=== PATIENT | male | born 1990 | race Caucasian/White ===

== ENCOUNTER → 2018-03-07 17:51 | Outpatient (CLI) | payer OTHER, SELFPAY ==
--- NOTE | 2018-03-07 | DI.MRI.S_ITS ---
PROCEDURE: MR HEAD/BRAIN WO/W CON INDICATIONS: LOW BACK PAIN/WEAKNESS - possible MS TECHNIQUE: Noncontrast sagittal and axial FLAIR, axial and coronal T2 fast spin echo, axial VIBE, axial gradient echo, axial diffusion and ADC through the brain. After the administration of contrast, axial and coronal VIBE with fat saturation through the brain. COMPARISON: None. FINDINGS: Image quality: Excellent. CSF spaces: Ventricles are normal in size and shape. Basal cisterns are patent. No extra-axial fluid collections. Incidentally noted low-lying cerebellar tonsils Brain: No intracranial bleeds or mass effects. No suspicious white matter signal changes to suggest demyelination Uribe-white matter interface appears intact. No suspicious white matter lesions. No abnormal intracranial enhancement. Diffusion weighted images show no acute ischemic insults. Brainstem appears normal. Normal intravascular flow voids are present. Skull and face: Calvarial marrow signal is normal. Orbits appear normal. Sinuses: Sinuses and mastoids are clear. IMPRESSION: Incidentally noted low-lying cerebellar tonsils. The clinical significance is unknown and recommend correlation to exam findings. No white matter signal changes or enhancement to suggest demyelination seen. Dictated by: Juan Gay M.D. on 03/08/2018 at 9:40 Approved by: Juan Gay M.D. on 03/08/2018 at 9:44
== END ==
PROVIDERS: Visit Provider Student in an Organized Health Care Education/Training Program
DX: M54.5 Low back pain (principal); R53.1 Weakness
CPT/HCPCS: 70553; A9579

== ENCOUNTER 2018-08-12 09:45 | Outpatient (RCR) | payer OTHER, SELFPAY ==
--- NOTE | 2018-06-24 09:17 | PT.OIE ---
Current Diagnoses Other congenital malformations of spine, not associated with scoliosis (06/24/18) Provider Visit Care Team Role Provider Type Maribell Medina Attending Provider Non-Staff Primary Care Provider Specialty: Medical Address: [address] [address] [address], [place], [phone] Fax: Email: Physical Therapy Initial Evaluation PT-OP-A Visit Information Start: 06/24/18 08:15 Freq: Status: Active Protocol: Document 06/24/18 12:25 [facility] (Rec: 06/24/18 12:33 [facility] [id number]) Out-Patient Physical Therapy Visit Information Visit Information Visit Type Initial Evaluation Visit Start Time 08:20 Visit Stop Time 09:05 Total Visit Minutes 45 Visit Number 1/2 Number of VOLTAGE INSPECTOR Visits 0 PT-OP-B Current Condition Start: 06/24/18 08:15 Freq: Status: Active Protocol: Document 06/24/18 12:25 [facility] (Rec: 06/24/18 16:57 [facility] [id number]) Current Condition History of Current Condition Onset Date about 3-5 years ago initial injury Current Complaints LBP with RLE pain History of Current Condition Pt reports he had an injury about 3 to 5 years ago when he was doing a 4 person lift for a 450 lb thing at work and then had to close the large lid and jumped off and noticed he tweaked his back> Reports when he got out the shower he felt like he couldn't walk and couldn't get up from floor. He rested in bed per MD recommendation for 3 days. [place] did PT [place] and came back and did PT but did not have relief with it. MD kept dx as mm spasm each time he went in and would give him mm relaxors . He had anohter injury where he was exercising recently and doing broad jumps and felt very uncomfortable in his back which inc his pain. 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 Pt does yoga and elliptical but is painful. He had an SUKHWINDER which gave him small bit of relief. Prior Treatments and Tests MRI & xrays & 1 injection giving some help Future Testing and Treatments Planned another injection soon Treatment Goals Patient/Caregiver Goals dec pain , return to being active PT-OP-C Subjective Start: 06/24/18 08:15 Freq: Status: Active Protocol: Document 06/24/18 12:25 [facility] (Rec: 06/24/18 16:57 [facility] [id number]) Patient Questionnaires Oswestry Low Back Index Oswestry Score 56 Oswestry Impairment 40 to 59% Impaired (Score 40- 59) OP-PT Pain Assessment Location lumbar Pain Location Details lumbar and into ant med thigh Intensity 6 Scale Used Numeric (1 - 10) Description- Other constant 6; highest 8/10; best 3-4/10 Frequency Constant Radiating Location ant med thigh Other Pain Aggravating Factors standing, sitting extended, sleeping on right, laying flat , shifting weight Other Pain Alleviating Factors laying on L side PT-OP-F Manual Assessment Start: 06/24/18 08:15 Freq: Status: Active Protocol: Document 06/24/18 12:25 [facility] (Rec: 06/24/18 12:33 [facility] [id number]) Manual Assessments Soft Tissue Assessment Soft Tissue Mobility Assessment Tenderness & tightness throughout LB Joint Mobility Assessment Joint Mobility Assessment L iliac crest higher than R PT-OP-G Mobility & Gait Start: 06/24/18 08:15 Freq: Status: Active Protocol: Document 06/24/18 12:25 [facility] (Rec: 06/24/18 12:33 [facility] [id number]) OP Mobility Evaluation Bed Mobility Rolling rolls segmentally, not with core first strategy Supine to and from Sit does sit up and sit back for supine <>sit OP Gait Assessment Comments Gait Comments Lat lean over RLE with dec stance time and dec post depression PT-OP-K Range of Motion Start: 06/24/18 08:15 Freq: Status: Active Protocol: Document 06/24/18 12:25 [facility] (Rec: 06/24/18 12:33 [facility] [id number]) Lumbar Spine Range of Motion Lumbar Spine Active Degrees Testing Position standing Flexion 24 Extension 0 Lateral Flexion Left 10 Lateral Flexion Right 10 Comments 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 PT-OP-L Special Tests Start: 06/24/18 08:15 Freq: Status: Active Protocol: Document 06/24/18 12:25 [facility] (Rec: 06/24/18 12:33 [facility] [id number]) Special Tests Lumbar Spine Special Tests Slump Test Results positive R(unable to go fully into slump d/t back pain)neck flex w/knee ext Straight Leg Raise Test Results neg B-HS tightness PT-OP-M Strength Start: 06/24/18 08:15 Freq: Status: Active Protocol: Document 06/24/18 12:25 [facility] (Rec: 06/24/18 12:33 [facility] [id number]) Hip Strength Hip Manual Muscle Testing Right Flexion (L2) 4 Good Comments pain B- extensive testing not done d/t pain. Left Flexion (L2) 4 Good Comments pain w/hip flex PT-OP-Q Treatments Start: 06/24/18 08:15 Freq: Status: Active Protocol: Document 06/24/18 12:25 [facility] (Rec: 06/24/18 12:58 [facility] [id number]) Therapeutic Exercises Sidelying Exercises TA contraction Side left Reps/Minutes 5 sec x5 Comments palpating for TA vs rectus Therapeutic Activity Therapeutic Activity ice Comments edu on inflammation especially with inc activity; trying after elliptical log roll technique Comments Pt able to log roll with cueing and edu PT-OP-T Assessment and Plan Start: 06/24/18 08:15 Freq: Status: Active Protocol: Document 06/24/18 12:25 [facility] (Rec: 06/24/18 12:58 [facility] [id number]) Physical Therapy Assessment Rehab Potential Rehabilitation Potential Good Evaluation Complexity Number of Personal Factors/Comorbidities 1-2 Number of Body Systems Impaired 4 or More Clinical Presentation at Evaluation Evolving Impairments Impairments Activity Tolerance Balance Functional Activities Functional Mobility Gait Pain Posture ROM Soft Tissue Mobility Strength Assessment Summary Assessment Pt presents with hx of annular tear and recent diagnosis of Bertolotti's syndrome and pt reports only having 4 lumbar vertebrae per MD. Pt has severe back pain and is unable to participate in his typical activities due to pain with resulting gait impairments and strength and ROM limitations. Physical Therapy Plan Frequency and Duration Frequency of Treatment 2x/Week Duration of Treatment 2 months Plan of Care Start Date 06/24/18 Plan of Care End Date 08/24/18 Therapeutic Interventions Therapeutic Interventions Aquatic Therapy Balance Training Gait Training Home Exercise Program Joint Mobilizations Manual Therapy Self-Care/Home Management Soft Tissue Mobilization Taping Therapeutic Activities Therapeutic Exercises Modalities Cold Pack/Ice Massage Electric Stimulation Hot Packs Infrared Therapy Traction- Mechanical Ultrasound Next Visit Focus/Plan Next Note Type Treatment Note Next Visit Plan Try taping, STM, LTR, Try finding position of comfort, discuss aquatic
--- NOTE | 2018-06-24 09:18 | PT.OPPOC ---
Current Diagnoses Other congenital malformations of spine, not associated with scoliosis (06/24/18) Provider Visit Care Team Role Provider Type Maribell Medina Attending Provider Non-Staff Primary Care Provider Specialty: Medical Address: [address] [place] [address] [address], [place], [phone] Fax: Email: Plan Of Care PT-OP-T Assessment and Plan Start: 06/24/18 08:15 Freq: Status: Active Protocol: Document 06/24/18 12:25 [facility] (Rec: 06/24/18 12:58 [facility] [id number]) Physical Therapy Assessment Rehab Potential Rehabilitation Potential Good Evaluation Complexity Number of Personal Factors/Comorbidities 1-2 Number of Body Systems Impaired 4 or More Clinical Presentation at Evaluation Evolving Impairments Impairments Activity Tolerance Balance Functional Activities Functional Mobility Gait Pain Posture ROM Soft Tissue Mobility Strength Assessment Summary Assessment Pt presents with hx of annular tear and recent diagnosis of Bertolotti's syndrome and pt reports only having 4 lumbar vertebrae per MD. Pt has severe back pain and is unable to participate in his typical activities due to pain with resulting gait impairments and strength and ROM limitations. Physical Therapy Plan Frequency and Duration Frequency of Treatment 2x/Week Duration of Treatment 2 months Plan of Care Start Date 06/24/18 Plan of Care End Date 08/24/18 Therapeutic Interventions Therapeutic Interventions Aquatic Therapy Balance Training Gait Training Home Exercise Program Joint Mobilizations Manual Therapy Self-Care/Home Management Soft Tissue Mobilization Taping Therapeutic Activities Therapeutic Exercises Modalities Cold Pack/Ice Massage Electric Stimulation Hot Packs Infrared Therapy Traction- Mechanical Ultrasound Next Visit Focus/Plan Next Note Type Treatment Note Next Visit Plan Try taping, STM, LTR, Try finding position of comfort, discuss aquatic Plan of Care Dates Plan of Care Start Date 06/24/18 Plan of Care End Date 08/24/18 Please Sign and Return: I have reviewed this Plan of Care and certify that the skilled therapy services above are required to meet the patient?s needs. Physician Signature Date Printed Name and Credentials Clinical Instructor Signature Printed Name and Credentials
--- NOTE | 2018-06-24 14:26 | PT.OPPOC ---
Current Diagnoses Other congenital malformations of spine, not associated with scoliosis (06/27/18) Provider Visit Care Team Role Provider Type Maribell Medina Attending Provider Non-Staff Primary Care Provider Specialty: Medical Address: [address] [place] [address] [address], [place], [phone] Fax: Email: Plan Of Care PT-OP-T Assessment and Plan Start: 06/24/18 08:15 Freq: Status: Active Protocol: Document 06/24/18 12:25 [facility] (Rec: 06/24/18 12:58 [facility] [id number]) Physical Therapy Assessment Rehab Potential Rehabilitation Potential Good Evaluation Complexity Number of Personal Factors/Comorbidities 1-2 Number of Body Systems Impaired 4 or More Clinical Presentation at Evaluation Evolving Impairments Impairments Activity Tolerance Balance Functional Activities Functional Mobility Gait Pain Posture ROM Soft Tissue Mobility Strength Goals Two Impairment mobility Short Term Goal (STG) Pt will be able to sit and stand for 15 min without inc pain STG Duration 07/25/18 Penitentiary Goal (LTG) Pt will be able to return to work with min inc pain LTG Duration 08/24/18 One Impairment pain Short Term Goal (STG) daily pain to 2/10 STG Duration 07/25/18 Penitentiary Goal (LTG) Worst pain to 5/10 LTG Duration 08/24/18 Assessment Summary Assessment Pt presents with hx of annular tear and recent diagnosis of Bertolotti's syndrome and pt reports only having 4 lumbar vertebrae per MD. Pt has severe back pain and is unable to participate in his typical activities due to pain with resulting gait impairments and strength and ROM limitations. Physical Therapy Plan Frequency and Duration Frequency of Treatment 2x/Week Duration of Treatment 2 months Plan of Care Start Date 06/24/18 Plan of Care End Date 08/24/18 Therapeutic Interventions Therapeutic Interventions Aquatic Therapy Balance Training Gait Training Home Exercise Program Joint Mobilizations Manual Therapy Self-Care/Home Management Soft Tissue Mobilization Taping Therapeutic Activities Therapeutic Exercises Modalities Cold Pack/Ice Massage Electric Stimulation Hot Packs Infrared Therapy Traction- Mechanical Ultrasound Next Visit Focus/Plan Next Note Type Treatment Note Next Visit Plan Try taping, STM, LTR, Try finding position of comfort, discuss aquatic Plan of Care Dates Plan of Care Start Date 06/24/18 Plan of Care End Date 08/24/18 Please Sign and Return: I have reviewed this Plan of Care and certify that the skilled therapy services above are required to meet the patient?s needs. Physician Signature Date Printed Name and Credentials Clinical Instructor Signature Printed Name and Credentials
--- NOTE | 2018-06-27 18:17 | PT.OTN ---
Current Diagnoses Other congenital malformations of spine, not associated with scoliosis (06/27/18) Physical Therapy Treatment Note PT-OP-A Visit Information Start: 06/24/18 08:15 Freq: Status: Active Protocol: Document 06/27/18 14:12 [facility] (Rec: 06/27/18 14:19 [facility] [id number]) Out-Patient Physical Therapy Visit Information Visit Information Visit Type Treatment Note Visit Start Time 11:15 Visit Stop Time 12:15 Total Visit Minutes 60 Visit Number 10/18 Number of VAN DRIVER Visits 0 PT-OP-B Current Condition Start: 06/24/18 08:15 Freq: Status: Active Protocol: Document 06/24/18 12:25 [facility] (Rec: 06/24/18 16:57 [facility] [id number]) Current Condition History of Current Condition Onset Date about 3-5 years ago initial injury Current Complaints LBP with RLE pain History of Current Condition Pt reports he had an injury about 3 to 5 years ago when he was doing a 4 person lift for a 450 lb thing at work and then had to close the large lid and jumped off and noticed he tweaked his back> Reports when he got out the shower he felt like he couldn't walk and couldn't get up from floor. He rested in bed per MD recommendation for 3 days. [place] did PT [place] and came back and did PT but did not have relief with it. MD kept dx as mm spasm each time he went in and would give him mm relaxors . He had anohter injury where he was exercising recently and doing broad jumps and felt very uncomfortable in his back which inc his pain. 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 Pt does yoga and elliptical but is painful. He had an SUKHWINDER which gave him small bit of relief. Prior Treatments and Tests MRI & xrays & 1 injection giving some help Future Testing and Treatments Planned another injection soon Treatment Goals Patient/Caregiver Goals dec pain , return to being active PT-OP-C Subjective Start: 06/24/18 08:15 Freq: Status: Active Protocol: Document 06/27/18 14:12 [facility] (Rec: 06/27/18 14:19 [facility] [id number]) OP-PT Subjective Patient Comments Patient Comments Pt reports he did try the exercise. NOtes significant pain today d/t CT imaging being done later today. PT-OP-F Manual Assessment Start: 06/24/18 08:15 Freq: Status: Active Protocol: Document 06/24/18 12:25 [facility] (Rec: 06/24/18 12:33 [facility] [id number]) Manual Assessments Soft Tissue Assessment Soft Tissue Mobility Assessment Tenderness & tightness throughout LB Joint Mobility Assessment Joint Mobility Assessment L iliac crest higher than R PT-OP-G Mobility & Gait Start: 06/24/18 08:15 Freq: Status: Active Protocol: Document 06/24/18 12:25 [facility] (Rec: 06/24/18 12:33 [facility] [id number]) OP Mobility Evaluation Bed Mobility Rolling rolls segmentally, not with core first strategy Supine to and from Sit does sit up and sit back for supine <>sit OP Gait Assessment Comments Gait Comments Lat lean over RLE with dec stance time and dec post depression PT-OP-K Range of Motion Start: 06/24/18 08:15 Freq: Status: Active Protocol: Document 06/24/18 12:25 [facility] (Rec: 06/24/18 12:33 [facility] [id number]) Lumbar Spine Range of Motion Lumbar Spine Active Degrees Testing Position standing Flexion 24 Extension 0 Lateral Flexion Left 10 Lateral Flexion Right 10 Comments 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 PT-OP-L Special Tests Start: 06/24/18 08:15 Freq: Status: Active Protocol: Document 06/24/18 12:25 [facility] (Rec: 06/24/18 12:33 [facility] [id number]) Special Tests Lumbar Spine Special Tests Slump Test Results positive R(unable to go fully into slump d/t back pain)neck flex w/knee ext Straight Leg Raise Test Results neg B-HS tightness PT-OP-M Strength Start: 06/24/18 08:15 Freq: Status: Active Protocol: Document 06/24/18 12:25 [facility] (Rec: 06/24/18 12:33 [facility] [id number]) Hip Strength Hip Manual Muscle Testing Right Flexion (L2) 4 Good Comments pain B- extensive testing not done d/t pain. Left Flexion (L2) 4 Good Comments pain w/hip flex PT-OP-Q Treatments Start: 06/24/18 08:15 Freq: Status: Active Protocol: Document 06/27/18 14:12 [facility] (Rec: 06/27/18 14:19 [facility] [id number]) Therapeutic Exercises Supine Exercises SKTC Supine Exercise Name SKTC in hooklying Comments AA Sidelying Exercises diaphragmatic breathing Sidelying Exercise Name breathing w/hand on abdomen TA contraction Side left Reps/Minutes 5 sec x5 Comments palpating for TA vs rectus Other Exercises cat/camel Other Exercise Name cat/camel quaduped SB Other Exercise Name tail wags Reps/Minutes 8 Manual Therapy Treatment Soft Tissue Mobilization QL Body Location QL & paraspinals diaphram Body Location Diaphram Mobilization Type Sustained Pressure Comments L>R PT-OP-T Assessment and Plan Start: 06/24/18 08:15 Freq: Status: Active Protocol: Document 06/27/18 14:12 [facility] (Rec: 06/27/18 18:17 [facility] [id number]) Physical Therapy Assessment Goals Two Impairment mobility Short Term Goal (STG) Pt will be able to sit and stand for 15 min without inc pain STG Duration 07/25/18 Assembler Brazer Goal (LTG) Pt will be able to return to work with min inc pain LTG Duration 08/24/18 One Impairment pain Short Term Goal (STG) daily pain to 2/10 STG Duration 07/25/18 Assembler Brazer Goal (LTG) Worst pain to 5/10 LTG Duration 08/24/18 Assessment Summary Assessment Pt unable to tolerate manual traction in supine bent knee position or s/l with small force. Pt had pain in LB with deep breathing and pain into back with STM into diaphram with significant restriciton and tendency to utilize accessory mm for breathing. Physical Therapy Plan Frequency and Duration Frequency of Treatment 2x/Week Duration of Treatment 2 months Plan of Care Start Date 06/24/18 Plan of Care End Date 08/24/18 Next Visit Focus/Plan Next Note Type Treatment Note Next Visit Plan taping, LTR, marching?, discuss aquatic, diaphram work & PNF pelvis patterns
--- NOTE | 2018-07-01 16:34 | PT.OTN ---
Current Diagnoses Other congenital malformations of spine, not associated with scoliosis (07/01/18) Physical Therapy Treatment Note PT-OP-A Visit Information Start: 06/24/18 08:15 Freq: Status: Active Protocol: Document 07/01/18 16:20 [facility] (Rec: 07/01/18 16:34 [facility] [id number]) Out-Patient Physical Therapy Visit Information Visit Information Visit Type Treatment Note Visit Start Time 14:30 Visit Stop Time 15:38 Total Visit Minutes 68 Visit Number 3/12 Number of MOWER OPERATOR Visits 0 PT-OP-B Current Condition Start: 06/24/18 08:15 Freq: Status: Active Protocol: Document 06/24/18 12:25 [facility] (Rec: 06/24/18 16:57 [facility] [id number]) Current Condition History of Current Condition Onset Date about 3-5 years ago initial injury Current Complaints LBP with RLE pain History of Current Condition Pt reports he had an injury about 3 to 5 years ago when he was doing a 4 person lift for a 450 lb thing at work and then had to close the large lid and jumped off and noticed he tweaked his back> Reports when he got out the shower he felt like he couldn't walk and couldn't get up from floor. He rested in bed per MD recommendation for 3 days. [place] and came back and did PT but did not have relief with it. MD kept dx as mm spasm each time he went in and would give him mm relaxors . He had anohter injury where he was exercising recently and doing broad jumps and felt very uncomfortable in his back which inc his pain. 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 Pt does yoga and elliptical but is painful. He had an SUKHWINDER which gave him small bit of relief. Prior Treatments and Tests MRI & xrays & 1 injection giving some help Future Testing and Treatments Planned another injection soon Treatment Goals Patient/Caregiver Goals dec pain , return to being active PT-OP-C Subjective Start: 06/24/18 08:15 Freq: Status: Active Protocol: Document 07/01/18 16:20 [facility] (Rec: 07/01/18 16:34 [facility] [id number]) OP-PT Subjective Patient Comments Patient Comments Pt reports no change since last session. Reports he thinks he was able to get inc range with exercises. PT-OP-F Manual Assessment Start: 06/24/18 08:15 Freq: Status: Active Protocol: Document 06/24/18 12:25 [facility] (Rec: 06/24/18 12:33 [facility] [id number]) Manual Assessments Soft Tissue Assessment Soft Tissue Mobility Assessment Tenderness & tightness throughout LB Joint Mobility Assessment Joint Mobility Assessment L iliac crest higher than R PT-OP-G Mobility & Gait Start: 06/24/18 08:15 Freq: Status: Active Protocol: Document 06/24/18 12:25 [facility] (Rec: 06/24/18 12:33 [facility] [id number]) OP Mobility Evaluation Bed Mobility Rolling rolls segmentally, not with core first strategy Supine to and from Sit does sit up and sit back for supine <>sit OP Gait Assessment Comments Gait Comments Lat lean over RLE with dec stance time and dec post depression PT-OP-K Range of Motion Start: 06/24/18 08:15 Freq: Status: Active Protocol: Document 06/24/18 12:25 [facility] (Rec: 06/24/18 12:33 [facility] [id number]) Lumbar Spine Range of Motion Lumbar Spine Active Degrees Testing Position standing Flexion 24 Extension 0 Lateral Flexion Left 10 Lateral Flexion Right 10 Comments 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 PT-OP-L Special Tests Start: 06/24/18 08:15 Freq: Status: Active Protocol: Document 06/24/18 12:25 [facility] (Rec: 06/24/18 12:33 [facility] [id number]) Special Tests Lumbar Spine Special Tests Slump Test Results positive R(unable to go fully into slump d/t back pain)neck flex w/knee ext Straight Leg Raise Test Results neg B-HS tightness PT-OP-M Strength Start: 06/24/18 08:15 Freq: Status: Active Protocol: Document 06/24/18 12:25 [facility] (Rec: 06/24/18 12:33 [facility] [id number]) Hip Strength Hip Manual Muscle Testing Right Flexion (L2) 4 Good Comments pain B- extensive testing not done d/t pain. Left Flexion (L2) 4 Good Comments pain w/hip flex PT-OP-Q Treatments Start: 06/24/18 08:15 Freq: Status: Active Protocol: Document 07/01/18 16:20 [facility] (Rec: 07/01/18 16:34 [facility] [id number]) Therapeutic Exercises Supine Exercises marching Supine Exercise Name w/UE chop Equipment Used L2 Tband LTR Supine Exercise Name comfortable range Manual Therapy Treatment Soft Tissue Mobilization QL Body Location QL & paraspinals Neuro Re-Education Treatment Other Activities supine chop irradiation Details chop facilitation to allow for marching Comments supine irradiation into mass flex Details ant depression of scapula to irradiate to ant elevation of pelvis ant depression Details rhythmic stabilization to isometrics ant elevation Details rhythmic stabilization to isometrics Self-Care/Home Management Treatment Activities Self-Care/Home Management Activities edu on anatomy & why ext is painful and why PT has been recommended. PT-OP-T Assessment and Plan Start: 06/24/18 08:15 Freq: Status: Active Protocol: Document 07/01/18 16:20 [facility] (Rec: 07/01/18 16:34 [facility] [id number]) Physical Therapy Assessment Goals Two Impairment mobility Short Term Goal (STG) Pt will be able to sit and stand for 15 min without inc pain STG Duration 07/25/18 Automation Machine Operator Goal (LTG) Pt will be able to return to work with min inc pain LTG Duration 08/24/18 Assessment Summary Assessment Pt had pain with isometric holds into pelvic patterns, but did well with rhythmic initiation into ant elevation & ant depression. He was able to irradiate with ant scapular depression to improved stability through short and long axis ant elevation of pelvis. Pt was able to create good irradiation to core to be able to progress to march with UE chop pattern. Physical Therapy Plan Frequency and Duration Frequency of Treatment 2x/Week Duration of Treatment 2 months Plan of Care Start Date 06/24/18 Plan of Care End Date 08/24/18 Next Visit Focus/Plan Next Note Type Treatment Note Next Visit Plan assess taping, cont to work on irradiation to get core control & diaphram work.
--- NOTE | 2018-07-04 18:39 | PT.OTN ---
Current Diagnoses Other congenital malformations of spine, not associated with scoliosis (07/04/18) Physical Therapy Treatment Note PT-OP-A Visit Information Start: 06/24/18 08:15 Freq: Status: Active Protocol: Document 07/04/18 18:24 [facility] (Rec: 07/04/18 18:39 [facility] [id number]) Out-Patient Physical Therapy Visit Information Visit Information Visit Type Treatment Note Visit Start Time 16:45 Visit Stop Time 17:45 Total Visit Minutes 60 Visit Number 4/12 Number of GROUT MACHINE TENDER Visits 0 PT-OP-B Current Condition Start: 06/24/18 08:15 Freq: Status: Active Protocol: Document 06/24/18 12:25 [facility] (Rec: 06/24/18 16:57 [facility] [id number]) Current Condition History of Current Condition Onset Date about 3-5 years ago initial injury Current Complaints LBP with RLE pain History of Current Condition Pt reports he had an injury about 3 to 5 years ago when he was doing a 4 person lift for a 450 lb thing at work and then had to close the large lid and jumped off and noticed he tweaked his back> Reports when he got out the shower he felt like he couldn't walk and couldn't get up from floor. He rested in bed per MD recommendation for 3 days. He did PT [place] and came back and did PT but did not have relief with it. MD kept dx as mm spasm each time he went in and would give him mm relaxors . He had anohter injury where he was exercising recently and doing broad jumps and felt very uncomfortable in his back which inc his pain. 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 Pt does yoga and elliptical but is painful. He had an SUKHWINDER which gave him small bit of relief. Prior Treatments and Tests MRI & xrays & 1 injection giving some help Future Testing and Treatments Planned another injection soon Treatment Goals Patient/Caregiver Goals dec pain , return to being active PT-OP-C Subjective Start: 06/24/18 08:15 Freq: Status: Active Protocol: Document 07/04/18 18:24 [facility] (Rec: 07/04/18 18:39 [facility] [id number]) OP-PT Subjective Patient Comments Patient Comments Pt reports since last wednesday he has noticed less pain in AMs but still bad pain in PM. PT-OP-F Manual Assessment Start: 06/24/18 08:15 Freq: Status: Active Protocol: Document 06/24/18 12:25 [facility] (Rec: 06/24/18 12:33 [facility] [id number]) Manual Assessments Soft Tissue Assessment Soft Tissue Mobility Assessment Tenderness & tightness throughout LB Joint Mobility Assessment Joint Mobility Assessment L iliac crest higher than R PT-OP-G Mobility & Gait Start: 06/24/18 08:15 Freq: Status: Active Protocol: Document 06/24/18 12:25 [facility] (Rec: 06/24/18 12:33 [facility] [id number]) OP Mobility Evaluation Bed Mobility Rolling rolls segmentally, not with core first strategy Supine to and from Sit does sit up and sit back for supine <>sit OP Gait Assessment Comments Gait Comments Lat lean over RLE with dec stance time and dec post depression PT-OP-K Range of Motion Start: 06/24/18 08:15 Freq: Status: Active Protocol: Document 06/24/18 12:25 [facility] (Rec: 06/24/18 12:33 [facility] [id number]) Lumbar Spine Range of Motion Lumbar Spine Active Degrees Testing Position standing Flexion 24 Extension 0 Lateral Flexion Left 10 Lateral Flexion Right 10 Comments 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 PT-OP-L Special Tests Start: 06/24/18 08:15 Freq: Status: Active Protocol: Document 06/24/18 12:25 [facility] (Rec: 06/24/18 12:33 [facility] [id number]) Special Tests Lumbar Spine Special Tests Slump Test Results positive R(unable to go fully into slump d/t back pain)neck flex w/knee ext Straight Leg Raise Test Results neg B-HS tightness PT-OP-M Strength Start: 06/24/18 08:15 Freq: Status: Active Protocol: Document 06/24/18 12:25 [facility] (Rec: 06/24/18 12:33 [facility] [id number]) Hip Strength Hip Manual Muscle Testing Right Flexion (L2) 4 Good Comments pain B- extensive testing not done d/t pain. Left Flexion (L2) 4 Good Comments pain w/hip flex PT-OP-Q Treatments Start: 06/24/18 08:15 Freq: Status: Active Protocol: Document 07/04/18 18:24 [facility] (Rec: 07/04/18 18:39 [facility] [id number]) Therapeutic Exercises Supine Exercises HS stretch Supine Exercise Name Assisted Hamstring stretch Reps/Minutes 30 sec hip flexor stretch Supine Exercise Name R hip flexor in RLE extended position with L KTC Standing Exercises hip flexor stretch Standing Exercise Name stopped d/t pain Neuro Re-Education Treatment Other Activities post depression Details rhythmic stabilization to isometrics & COI ant elevation Details rhythmic stabilization to isometrics & COI Self-Care/Home Management Treatment Activities Self-Care/Home Management Activities edu on anatomy PT-OP-R Modalities Start: 06/24/18 08:15 Freq: Status: Active Protocol: Document 07/04/18 18:24 [facility] (Rec: 07/04/18 18:39 [facility] [id number]) Hot Pack/Cold Pack Treatment Cold Pack Location lumbar & R hip Patient Position Sidelying Treatment Duration (minutes) 10 PT-OP-T Assessment and Plan Start: 06/24/18 08:15 Freq: Status: Active Protocol: Document 07/04/18 18:24 [facility] (Rec: 07/04/18 18:39 [facility] [id number]) Physical Therapy Assessment Goals Two Impairment mobility Short Term Goal (STG) Pt will be able to sit and stand for 15 min without inc pain STG Duration 07/25/18 [facility] Goal (LTG) Pt will be able to return to work with min inc pain LTG Duration 08/24/18 Assessment Summary Assessment Pt unable to do hip flexor stretch in standing but able to achieve in supine. He was able to tolerate more movement into ant elevation & post depression. Physical Therapy Plan Frequency and Duration Frequency of Treatment 2x/Week Duration of Treatment 2 months Plan of Care Start Date 06/24/18 Plan of Care End Date 08/24/18 Next Visit Focus/Plan Next Note Type Treatment Note Next Visit Plan assess taping, cont to work on irradiation to get core control & diaphram work & cont to work on hip flexor
--- NOTE | 2018-07-07 13:09 | PT.OTN ---
Current Diagnoses Other congenital malformations of spine, not associated with scoliosis (07/07/18) Physical Therapy Treatment Note PT-OP-A Visit Information Start: 06/24/18 08:15 Freq: Status: Active Protocol: Document 07/07/18 12:59 [facility] (Rec: 07/07/18 13:09 [facility] [id number]) Out-Patient Physical Therapy Visit Information Visit Information Visit Type Treatment Note Visit Start Time 12:05 Visit Stop Time 12:50 Total Visit Minutes 45 Visit Number 01/15 Number of GRID CASTER Visits 0 PT-OP-B Current Condition Start: 06/24/18 08:15 Freq: Status: Active Protocol: Document 06/24/18 12:25 [facility] (Rec: 06/24/18 16:57 [facility] [id number]) Current Condition History of Current Condition Onset Date about 3-5 years ago initial injury Current Complaints LBP with RLE pain History of Current Condition Pt reports he had an injury about 3 to 5 years ago when he was doing a 4 person lift for a 450 lb thing at work and then had to close the large lid and jumped off and noticed he tweaked his back> Reports when he got out the shower he felt like he couldn't walk and couldn't get up from floor. He rested in bed per MD recommendation for 3 days. [place] and came back and did PT but did not have relief with it. MD kept dx as mm spasm each time he went in and would give him mm relaxors . He had anohter injury where he was exercising recently and doing broad jumps and felt very uncomfortable in his back which inc his pain. 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 Pt does yoga and elliptical but is painful. He had an SUKHWINDER which gave him small bit of relief. Prior Treatments and Tests MRI & xrays & 1 injection giving some help Future Testing and Treatments Planned another injection soon Treatment Goals Patient/Caregiver Goals dec pain , return to being active PT-OP-C Subjective Start: 06/24/18 08:15 Freq: Status: Active Protocol: Document 07/07/18 12:59 [facility] (Rec: 07/07/18 13:09 [facility] [id number]) OP-PT Subjective Patient Comments Patient Comments Pt reports exercsies going okay. Can't get a great stretch in front of hip. PT-OP-F Manual Assessment Start: 06/24/18 08:15 Freq: Status: Active Protocol: Document 06/24/18 12:25 [facility] (Rec: 06/24/18 12:33 [facility] [id number]) Manual Assessments Soft Tissue Assessment Soft Tissue Mobility Assessment Tenderness & tightness throughout LB Joint Mobility Assessment Joint Mobility Assessment L iliac crest higher than R PT-OP-G Mobility & Gait Start: 06/24/18 08:15 Freq: Status: Active Protocol: Document 06/24/18 12:25 [facility] (Rec: 06/24/18 12:33 [facility] [id number]) OP Mobility Evaluation Bed Mobility Rolling rolls segmentally, not with core first strategy Supine to and from Sit does sit up and sit back for supine <>sit OP Gait Assessment Comments Gait Comments Lat lean over RLE with dec stance time and dec post depression PT-OP-K Range of Motion Start: 06/24/18 08:15 Freq: Status: Active Protocol: Document 06/24/18 12:25 [facility] (Rec: 06/24/18 12:33 [facility] [id number]) Lumbar Spine Range of Motion Lumbar Spine Active Degrees Testing Position standing Flexion 24 Extension 0 Lateral Flexion Left 10 Lateral Flexion Right 10 Comments 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 PT-OP-L Special Tests Start: 06/24/18 08:15 Freq: Status: Active Protocol: Document 06/24/18 12:25 [facility] (Rec: 06/24/18 12:33 [facility] [id number]) Special Tests Lumbar Spine Special Tests Slump Test Results positive R(unable to go fully into slump d/t back pain)neck flex w/knee ext Straight Leg Raise Test Results neg B-HS tightness PT-OP-M Strength Start: 06/24/18 08:15 Freq: Status: Active Protocol: Document 06/24/18 12:25 [facility] (Rec: 06/24/18 12:33 [facility] [id number]) Hip Strength Hip Manual Muscle Testing Right Flexion (L2) 4 Good Comments pain B- extensive testing not done d/t pain. Left Flexion (L2) 4 Good Comments pain w/hip flex PT-OP-Q Treatments Start: 06/24/18 08:15 Freq: Status: Active Protocol: Document 07/07/18 12:59 [facility] (Rec: 07/07/18 13:09 [facility] [id number]) Therapeutic Exercises Supine Exercises hip flexor stretch Supine Exercise Name R hip flexor in RLE extended position with L KTC Comments tried with pillow under knee & with PT assist over EOB Manual Therapy Treatment Soft Tissue Mobilization visceral mobs Body Location general R to L Mobilization Type Sustained Pressure Intensity/Depth Moderate rectus abdominus Body Location RA Mobilization Type Sustained Pressure Comments FM w/ deep breathing R to L iliacus Body Location iliacus Mobilization Type Sustained Pressure QL Body Location QL Mobilization Type Myofascial Release Rolling Sustained Pressure Intensity/Depth Superficial Body Position Sidelying Joint Mobilizations hip Joint hip Direction inf glide Grade III Body Position Hooklying PT-OP-R Modalities Start: 06/24/18 08:15 Freq: Status: Active Protocol: Document 07/04/18 18:24 [facility] (Rec: 07/04/18 18:39 [facility] [id number]) Hot Pack/Cold Pack Treatment Cold Pack Location lumbar & R hip Patient Position Sidelying Treatment Duration (minutes) 10 PT-OP-T Assessment and Plan Start: 06/24/18 08:15 Freq: Status: Active Protocol: Document 07/07/18 12:59 [facility] (Rec: 07/07/18 13:09 [facility] [id number]) Physical Therapy Assessment Goals Two Impairment mobility Short Term Goal (STG) Pt will be able to sit and stand for 15 min without inc pain STG Duration 07/25/18 [place] Operator Goal (LTG) Pt will be able to return to work with min inc pain LTG Duration 08/24/18 One Impairment pain Short Term Goal (STG) daily pain to 2/10 STG Duration 07/25/18 Retirement Goal (LTG) Worst pain to 5/10 LTG Duration 08/24/18 Assessment Summary Assessment Pt cont to have difficulty achieved hip flexor stretch in supine d/t pain in low back, likely d/t ext occuring at lumbar spine likely d/t tight ant structures. He has tightness of rectus abdominus and at this time unable to get to psoas d/t tissue guarding. Physical Therapy Plan Frequency and Duration Frequency of Treatment 2x/Week Duration of Treatment 2 months Plan of Care Start Date 06/24/18 Plan of Care End Date 08/24/18 Next Visit Focus/Plan Next Note Type Treatment Note Next Visit Plan assess taping, cont to work on irradiation to get core control & Try sacral mobs & cont to work on hip flexor
--- NOTE | 2018-07-15 08:52 | PT.OTN ---
Current Diagnoses Other congenital malformations of spine, not associated with scoliosis (07/15/18) Physical Therapy Treatment Note PT-OP-A Visit Information Start: 06/24/18 08:15 Freq: Status: Active Protocol: Document 07/15/18 07:43 ML (Rec: 07/15/18 08:15 ML [id number]) Out-Patient Physical Therapy Visit Information Visit Information Visit Type Treatment Note Visit Start Time 07:30 Visit Stop Time 08:25 Total Visit Minutes 55 Visit Number 6/ Number of POWERTRAIN DESIGN ENGINEER Visits 0 PT-OP-B Current Condition Start: 06/24/18 08:15 Freq: Status: Active Protocol: Document 06/24/18 12:25 [facility] (Rec: 06/24/18 16:57 [facility] [id number]) Current Condition History of Current Condition Onset Date about 3-5 years ago initial injury Current Complaints LBP with RLE pain History of Current Condition Pt reports he had an injury about 3 to 5 years ago when he was doing a 4 person lift for a 450 lb thing at work and then had to close the large lid and jumped off and noticed he tweaked his back> Reports when he got out the shower he felt like he couldn't walk and couldn't get up from floor. He rested in bed per MD recommendation for 3 days. [place] did PT [place] and came back and did PT but did not have relief with it. MD kept dx as mm spasm each time he went in and would give him mm relaxors . He had anohter injury where he was exercising recently and doing broad jumps and felt very uncomfortable in his back which inc his pain. 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 Pt does yoga and elliptical but is painful. He had an SUKHWINDER which gave him small bit of relief. Prior Treatments and Tests MRI & xrays & 1 injection giving some help Future Testing and Treatments Planned another injection soon Treatment Goals Patient/Caregiver Goals dec pain , return to being active PT-OP-C Subjective Start: 06/24/18 08:15 Freq: Status: Active Protocol: Document 07/15/18 07:43 ML (Rec: 07/15/18 08:15 ML [id number]) OP-PT Subjective Patient Comments Patient Comments Pt reports that his legs felt better this morning, but not his back, and he was able to walk into the clinic today with more knee extension than he has presented in the past. PT-OP-F Manual Assessment Start: 06/24/18 08:15 Freq: Status: Active Protocol: Document 06/24/18 12:25 [facility] (Rec: 06/24/18 12:33 [facility] [id number]) Manual Assessments Soft Tissue Assessment Soft Tissue Mobility Assessment Tenderness & tightness throughout LB Joint Mobility Assessment Joint Mobility Assessment L iliac crest higher than R PT-OP-G Mobility & Gait Start: 06/24/18 08:15 Freq: Status: Active Protocol: Document 06/24/18 12:25 [facility] (Rec: 06/24/18 12:33 [facility] [id number]) OP Mobility Evaluation Bed Mobility Rolling rolls segmentally, not with core first strategy Supine to and from Sit does sit up and sit back for supine <>sit OP Gait Assessment Comments Gait Comments Lat lean over RLE with dec stance time and dec post depression PT-OP-K Range of Motion Start: 06/24/18 08:15 Freq: Status: Active Protocol: Document 06/24/18 12:25 [facility] (Rec: 06/24/18 12:33 [facility] [id number]) Lumbar Spine Range of Motion Lumbar Spine Active Degrees Testing Position standing Flexion 24 Extension 0 Lateral Flexion Left 10 Lateral Flexion Right 10 Comments 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 PT-OP-L Special Tests Start: 06/24/18 08:15 Freq: Status: Active Protocol: Document 06/24/18 12:25 [facility] (Rec: 06/24/18 12:33 [facility] [id number]) Special Tests Lumbar Spine Special Tests Slump Test Results positive R(unable to go fully into slump d/t back pain)neck flex w/knee ext Straight Leg Raise Test Results neg B-HS tightness PT-OP-M Strength Start: 06/24/18 08:15 Freq: Status: Active Protocol: Document 06/24/18 12:25 [facility] (Rec: 06/24/18 12:33 [facility] [id number]) Hip Strength Hip Manual Muscle Testing Right Flexion (L2) 4 Good Comments pain B- extensive testing not done d/t pain. Left Flexion (L2) 4 Good Comments pain w/hip flex PT-OP-Q Treatments Start: 06/24/18 08:15 Freq: Status: Active Protocol: Document 07/15/18 07:43 ML (Rec: 07/15/18 08:15 ML [id number]) Therapeutic Exercises Supine Exercises diagonal chop Supine Exercise Name L cranial to R caudal w/UE chop Resistance lvl 3 tband Comments hooklying; HEP; add march and hip ER with each leg Manual Therapy Treatment Soft Tissue Mobilization QL Body Location QL Mobilization Type Myofascial Release Rolling Sustained Pressure Intensity/Depth Superficial Body Position Sidelying Comments Left Joint Mobilizations R inominate Joint R inominate Direction inc flex Body Position Hooklying Comments assisted with active R UE hip Joint hip R Direction inf glide Grade III Body Position Hooklying Neuro Re-Education Treatment Other Activities ant elevation Details rhythmic stabilization to isometrics & COI Comments L; terminated due to pain with contraction Self-Care/Home Management Treatment Education Patient Education Body Mechanics Joint Protection Other Education Pt inquired about restrictions and ability to do a sit up for the . The pt was instructed about those restrictions with his impairments, required joint mobility necessary, and potential strengthening exercises other than sit up in order to achieve the required abdominal strength to complete the sit up portion of the physical exam. Activities Self-Care/Home Management Activities Pt was also education on his inquiry about an artificial disk and allowing the mobility with that to achieve these motions. Other surgical procedures were also discussed relating to the pt's ability to achieve the desired motions through descriptions of anatomical structures and mechanics of movement. PT-OP-R Modalities Start: 06/24/18 08:15 Freq: Status: Active Protocol: Document 07/15/18 07:43 ML (Rec: 07/15/18 08:16 ML [id number]) Hot Pack/Cold Pack Treatment Cold Pack Location lumbar Patient Position Sidelying Treatment Duration (minutes) 10 Comments strap PT-OP-T Assessment and Plan Start: 06/24/18 08:15 Freq: Status: Active Protocol: Document 07/15/18 07:43 [facility] (Rec: 07/15/18 08:50 [facility] [id number]) Physical Therapy Assessment Goals Two Impairment mobility Short Term Goal (STG) Pt will be able to sit and stand for 15 min without inc pain STG Duration 07/25/18 Longterm Goal (LTG) Pt will be able to return to work with min inc pain LTG Duration 08/24/18 One Impairment pain Short Term Goal (STG) daily pain to 2/10 STG Duration 07/25/18 Longterm Goal (LTG) Worst pain to 5/10 LTG Duration 08/24/18 Assessment Summary Assessment Pt was able to achieve more hip flexion with inf glide of hip and innominate mob. He did not tolerate prolonged positioning in this mobilization. He was educated significantly in joint movement with flexion & sit up position. Pt unable to tolerate caudal gliding of L innominate but cont to present with significant elevation of L pelvis. Physical Therapy Plan Frequency and Duration Frequency of Treatment 2x/Week Duration of Treatment 2 months Plan of Care Start Date 06/24/18 Plan of Care End Date 08/24/18 Next Visit Focus/Plan Next Note Type Treatment Note Next Visit Plan assess pt response to taping from 3 sessions ago, Work on sacral & innominate motion as tolerated. Possible AP mobs into lumbar & assessment of coccyx
--- NOTE | 2018-07-18 11:29 | PT.OTN ---
Current Diagnoses Other congenital malformations of spine, not associated with scoliosis (07/18/18) Physical Therapy Treatment Note PT-OP-A Visit Information Start: 06/24/18 08:15 Freq: Status: Active Protocol: Document 07/18/18 10:42 [facility] (Rec: 07/18/18 11:29 [facility] [id number]) Out-Patient Physical Therapy Visit Information Visit Information Visit Type Treatment Note Visit Start Time 09:45 Visit Stop Time 10:30 Total Visit Minutes 45 Visit Number 03/17 Number of CLOTH TESTER QUALITY Visits 0 PT-OP-B Current Condition Start: 06/24/18 08:15 Freq: Status: Active Protocol: Document 06/24/18 12:25 [facility] (Rec: 06/24/18 16:57 [facility] [id number]) Current Condition History of Current Condition Onset Date about 3-5 years ago initial injury Current Complaints LBP with RLE pain History of Current Condition Pt reports he had an injury about 3 to 5 years ago when he was doing a 4 person lift for a 450 lb thing at work and then had to close the large lid and jumped off and noticed he tweaked his back> Reports when he got out the shower he felt like he couldn't walk and couldn't get up from floor. He rested in bed per MD recommendation for 3 days. He did PT [place] and came back and did PT but did not have relief with it. MD kept dx as mm spasm each time he went in and would give him mm relaxors . He had anohter injury where he was exercising recently and doing broad jumps and felt very uncomfortable in his back which inc his pain. 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 Pt does yoga and elliptical but is painful. He had an SUKHWINDER which gave him small bit of relief. Prior Treatments and Tests MRI & xrays & 1 injection giving some help Future Testing and Treatments Planned another injection soon Treatment Goals Patient/Caregiver Goals dec pain , return to being active PT-OP-C Subjective Start: 06/24/18 08:15 Freq: Status: Active Protocol: Document 07/18/18 10:42 [facility] (Rec: 07/18/18 11:29 [facility] [id number]) OP-PT Subjective Patient Comments Patient Comments Pt reports he was able to cat/ camel at home. Bending over is still difficult. PT-OP-F Manual Assessment Start: 06/24/18 08:15 Freq: Status: Active Protocol: Document 06/24/18 12:25 [facility] (Rec: 06/24/18 12:33 [facility] [id number]) Manual Assessments Soft Tissue Assessment Soft Tissue Mobility Assessment Tenderness & tightness throughout LB Joint Mobility Assessment Joint Mobility Assessment L iliac crest higher than R PT-OP-G Mobility & Gait Start: 06/24/18 08:15 Freq: Status: Active Protocol: Document 06/24/18 12:25 [facility] (Rec: 06/24/18 12:33 [facility] [id number]) OP Mobility Evaluation Bed Mobility Rolling rolls segmentally, not with core first strategy Supine to and from Sit does sit up and sit back for supine <>sit OP Gait Assessment Comments Gait Comments Lat lean over RLE with dec stance time and dec post depression PT-OP-K Range of Motion Start: 06/24/18 08:15 Freq: Status: Active Protocol: Document 06/24/18 12:25 [facility] (Rec: 06/24/18 12:33 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 (Rec: 06/24/18 12:33 [facility] [id number]) Special Tests Lumbar Spine Special Tests Slump Test Results positive R(unable to go fully into slump d/t back pain)neck flex w/knee ext Straight Leg Raise Test Results neg B-HS tightness PT-OP-M Strength Start: 06/24/18 08:15 Freq: Status: Active Protocol: Document 06/24/18 12:25 [facility] (Rec: 06/24/18 12:33 [facility] [id number]) Hip Strength Hip Manual Muscle Testing Right Flexion (L2) 4 Good Comments pain B- extensive testing not done d/t pain. Left Flexion (L2) 4 Good Comments pain w/hip flex PT-OP-Q Treatments Start: 06/24/18 08:15 Freq: Status: Active Protocol: Document 07/18/18 10:42 [facility] (Rec: 07/18/18 11:29 [facility] [id number]) Therapeutic Exercises Supine Exercises multifidi Supine Exercise Name Attempt with PT trying to pull transverse process ant post pelvic tilts Supine Exercise Name Gentle tilts Diphragmatic breathing Supine Exercise Name focus on abdomen breathing Standing Exercises gait at wall Standing Exercise Name staggered stance w/attempt at post depression w/post leg Comments able to do with LLE back only Manual Therapy Treatment Soft Tissue Mobilization psoas Body Location R Mobilization Type Sustained Pressure iliacus Body Location iliacus Mobilization Type Sustained Pressure Comments R Joint Mobilizations R inominate Joint R inominate Direction inc flex Body Position Hooklying Comments w/ gentle pressure into foot R Manual Techniques MET Type in foot supported position for L ant & R post Neuro Re-Education Treatment Other Activities quick stretch diaphram Details quick stretch to facilitate diaphram post depression Details sustained hold L neutral position irradiation into mass flex Details ant depression of scapula to irradiate to ant elevation of pelvis Comments post elevation progressed to mass ext with post depression of pelvis (L side) ant elevation Details sustained hold L neutral position PT-OP-R Modalities Start: 06/24/18 08:15 Freq: Status: Active Protocol: Document 07/15/18 07:43 ML (Rec: 07/15/18 08:16 ML [id number]) Hot Pack/Cold Pack Treatment Cold Pack Location lumbar Patient Position Sidelying Treatment Duration (minutes) 10 Comments strap PT-OP-T Assessment and Plan Start: 06/24/18 08:15 Freq: Status: Active Protocol: Document 07/18/18 10:42 [facility] (Rec: 07/18/18 11:29 [facility] [id number]) Physical Therapy Assessment Goals Two Impairment mobility Short Term Goal (STG) Pt will be able to sit and stand for 15 min without inc pain STG Duration 07/25/18 Airport Screener Goal (LTG) Pt will be able to return to work with min inc pain LTG Duration 08/24/18 One Impairment pain Short Term Goal (STG) daily pain to 2/10 STG Duration 07/25/18 Airport Screener Goal (LTG) Worst pain to 5/10 LTG Duration 08/24/18 Assessment Summary Assessment Pt is tolerating standing more during session & different positions for treatment. He is able to tolerate gentle MET mobilizations. He is still very limited in flexion, but likely d/t lack of ability to fold anteriorly as he has significant psoas tightness. Improved pelvis position after rx Physical Therapy Plan Frequency and Duration Frequency of Treatment 2x/Week Duration of Treatment 2 months Plan of Care Start Date 06/24/18 Plan of Care End Date 08/24/18 Next Visit Focus/Plan Next Note Type Treatment Note Next Visit Plan Cont to work on innominate rotation & elevation (L side elevated & R ant)
--- NOTE | 2018-07-22 13:42 | PT.OTN ---
Current Diagnoses Other congenital malformations of spine, not associated with scoliosis (07/22/18) Physical Therapy Treatment Note PT-OP-A Visit Information Start: 06/24/18 08:15 Freq: Status: Active Protocol: Document 07/22/18 13:21 [facility] (Rec: 07/22/18 13:41 [facility] [id number]) Out-Patient Physical Therapy Visit Information Visit Information Visit Type Treatment Note Visit Start Time 10:30 Visit Stop Time 11:30 Total Visit Minutes 60 Visit Number 8/12 Number of PYROTECHNICS PRESS TENDER Visits 0 PT-OP-B Current Condition Start: 06/24/18 08:15 Freq: Status: Active Protocol: Document 06/24/18 12:25 [facility] (Rec: 06/24/18 16:57 [facility] [id number]) Current Condition History of Current Condition Onset Date about 3-5 years ago initial injury Current Complaints LBP with RLE pain History of Current Condition Pt reports he had an injury about 3 to 5 years ago when he was doing a 4 person lift for a 450 lb thing at work and then had to close the large lid and jumped off and noticed he tweaked his back> Reports when he got out the shower he felt like he couldn't walk and couldn't get up from floor. He rested in bed per MD recommendation for 3 days. [place] did PT [place] and came back and did PT but did not have relief with it. MD kept dx as mm spasm each time he went in and would give him mm relaxors . He had anohter injury where he was exercising recently and doing broad jumps and felt very uncomfortable in his back which inc his pain. 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 Pt does yoga and elliptical but is painful. He had an SUKHWINDER which gave him small bit of relief. Prior Treatments and Tests MRI & xrays & 1 injection giving some help Future Testing and Treatments Planned another injection soon Treatment Goals Patient/Caregiver Goals dec pain , return to being active PT-OP-C Subjective Start: 06/24/18 08:15 Freq: Status: Active Protocol: Document 07/22/18 13:21 [facility] (Rec: 07/22/18 13:41 [facility] [id number]) OP-PT Subjective Patient Comments Patient Comments Pt reports feeling very sore after last session. Reports he had difficulty sleeping that night and was sore in the AM. Reports he sees next month PT-OP-F Manual Assessment Start: 06/24/18 08:15 Freq: Status: Active Protocol: Document 06/24/18 12:25 [facility] (Rec: 06/24/18 12:33 [facility] [id number]) Manual Assessments Soft Tissue Assessment Soft Tissue Mobility Assessment Tenderness & tightness throughout LB Joint Mobility Assessment Joint Mobility Assessment L iliac crest higher than R PT-OP-G Mobility & Gait Start: 06/24/18 08:15 Freq: Status: Active Protocol: Document 06/24/18 12:25 [facility] (Rec: 06/24/18 12:33 [facility] [id number]) OP Mobility Evaluation Bed Mobility Rolling rolls segmentally, not with core first strategy Supine to and from Sit does sit up and sit back for supine <>sit OP Gait Assessment Comments Gait Comments Lat lean over RLE with dec stance time and dec post depression PT-OP-K Range of Motion Start: 06/24/18 08:15 Freq: Status: Active Protocol: Document 06/24/18 12:25 [facility] (Rec: 06/24/18 12:33 [facility] [id number]) Lumbar Spine Range of Motion Lumbar Spine Active Degrees Testing Position standing Flexion 24 Extension 0 Lateral Flexion Left 10 Lateral Flexion Right 10 Comments 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 PT-OP-L Special Tests Start: 06/24/18 08:15 Freq: Status: Active Protocol: Document 06/24/18 12:25 [facility] (Rec: 06/24/18 12:33 [facility] [id number]) Special Tests Lumbar Spine Special Tests Slump Test Results positive R(unable to go fully into slump d/t back pain)neck flex w/knee ext Straight Leg Raise Test Results neg B-HS tightness PT-OP-M Strength Start: 06/24/18 08:15 Freq: Status: Active Protocol: Document 06/24/18 12:25 [facility] (Rec: 06/24/18 12:33 [facility] [id number]) Hip Strength Hip Manual Muscle Testing Right Flexion (L2) 4 Good Comments pain B- extensive testing not done d/t pain. Left Flexion (L2) 4 Good Comments pain w/hip flex PT-OP-Q Treatments Start: 06/24/18 08:15 Freq: Status: Active Protocol: Document 07/22/18 13:21 [facility] (Rec: 07/22/18 13:41 [facility] [id number]) Therapeutic Activity Therapeutic Activity sleep position Comments edu on sleep position & supporting entire body; icing before bed Manual Therapy Treatment Soft Tissue Mobilization piriformis & glutes Body Location R Mobilization Type Rolling Sustained Pressure Intensity/Depth Moderate Body Position Sidelying QL Body Location QL Mobilization Type Myofascial Release Rolling Sustained Pressure Intensity/Depth Superficial Body Position Prone Comments Left Neuro Re-Education Treatment Other Activities post depression Details sustained hold R neutral position Self-Care/Home Management Treatment Education Other Education Anatomy edu and discussion of disc creating radiating pain & edu on coccyx and sacaral mobility importance Activities Self-Care/Home Management Activities Importance of icing to dec inflamation after treatment PT-OP-R Modalities Start: 06/24/18 08:15 Freq: Status: Active Protocol: Document 07/22/18 13:21 [facility] (Rec: 07/22/18 13:42 [facility] [id number]) Hot Pack/Cold Pack Treatment Cold Pack Location lumbar & R hip Patient Position Sidelying Treatment Duration (minutes) 10 PT-OP-T Assessment and Plan Start: 06/24/18 08:15 Freq: Status: Active Protocol: Document 07/22/18 13:21 [facility] (Rec: 07/22/18 13:41 [facility] [id number]) Physical Therapy Assessment Goals Two Impairment mobility Short Term Goal (STG) Pt will be able to sit and stand for 15 min without inc pain STG Duration 07/25/18 Sas Programmer Remote Goal (LTG) Pt will be able to return to work with min inc pain LTG Duration 08/24/18 One Impairment pain Short Term Goal (STG) daily pain to 2/10 STG Duration 07/25/18 [facility] Goal (LTG) Worst pain to 5/10 LTG Duration 08/24/18 Assessment Summary Assessment Pt cont to improve with gait, but still has dec stance time on R with dec post depression. Pt cont to have elevation of L side but less than prior session. Pt had significant questions re: prognosis & anatomy which was discussed Physical Therapy Plan Frequency and Duration Frequency of Treatment 2x/Week Duration of Treatment 2 months Plan of Care Start Date 06/24/18 Plan of Care End Date 08/24/18 Next Visit Focus/Plan Next Note Type Treatment Note Next Visit Plan coccyx mobs, core stability rx ; discuss questions to ask MD
--- NOTE | 2018-07-26 13:34 | PT.OTN ---
Current Diagnoses Other congenital malformations of spine, not associated with scoliosis (07/26/18) Physical Therapy Treatment Note PT-OP-A Visit Information Start: 06/24/18 08:15 Freq: Status: Active Protocol: Document 07/26/18 10:50 ML (Rec: 07/26/18 11:13 ML [id number]) Out-Patient Physical Therapy Visit Information Visit Information Visit Type Treatment Note Visit Start Time 10:30 Visit Stop Time 11:25 Total Visit Minutes 55 Visit Number / Number of RELIGION DEPARTMENT CHAIR Visits 0 PT-OP-B Current Condition Start: 06/24/18 08:15 Freq: Status: Active Protocol: Document 06/24/18 12:25 [facility] (Rec: 06/24/18 16:57 [facility] [id number]) Current Condition History of Current Condition Onset Date about 3-5 years ago initial injury Current Complaints LBP with RLE pain History of Current Condition Pt reports he had an injury about 3 to 5 years ago when he was doing a 4 person lift for a 450 lb thing at work and then had to close the large lid and jumped off and noticed he tweaked his back> Reports when he got out the shower he felt like he couldn't walk and couldn't get up from floor. He rested in bed per MD recommendation for 3 days. [place] did PT [place] and came back and did PT but did not have relief with it. MD kept dx as mm spasm each time he went in and would give him mm relaxors . He had anohter injury where he was exercising recently and doing broad jumps and felt very uncomfortable in his back which inc his pain. 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 Pt does yoga and elliptical but is painful. He had an SUKHWINDER which gave him small bit of relief. Prior Treatments and Tests MRI & xrays & 1 injection giving some help Future Testing and Treatments Planned another injection soon Treatment Goals Patient/Caregiver Goals dec pain , return to being active PT-OP-C Subjective Start: 06/24/18 08:15 Freq: Status: Active Protocol: Document 07/26/18 10:50 ML (Rec: 07/26/18 11:13 ML [id number]) OP-PT Subjective Patient Comments Patient Comments Pt reports that he felt ok after last visit, but the last couple days have been more painful. PT-OP-F Manual Assessment Start: 06/24/18 08:15 Freq: Status: Active Protocol: Document 06/24/18 12:25 [facility] (Rec: 06/24/18 12:33 [facility] [id number]) Manual Assessments Soft Tissue Assessment Soft Tissue Mobility Assessment Tenderness & tightness throughout LB Joint Mobility Assessment Joint Mobility Assessment L iliac crest higher than R PT-OP-G Mobility & Gait Start: 06/24/18 08:15 Freq: Status: Active Protocol: Document 06/24/18 12:25 [facility] (Rec: 06/24/18 12:33 [facility] [id number]) OP Mobility Evaluation Bed Mobility Rolling rolls segmentally, not with core first strategy Supine to and from Sit does sit up and sit back for supine <>sit OP Gait Assessment Comments Gait Comments Lat lean over RLE with dec stance time and dec post depression PT-OP-K Range of Motion Start: 06/24/18 08:15 Freq: Status: Active Protocol: Document 06/24/18 12:25 [facility] (Rec: 06/24/18 12:33 [facility] [id number]) Lumbar Spine Range of Motion Lumbar Spine Active Degrees Testing Position standing Flexion 24 Extension 0 Lateral Flexion Left 10 Lateral Flexion Right 10 Comments 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 PT-OP-L Special Tests Start: 06/24/18 08:15 Freq: Status: Active Protocol: Document 06/24/18 12:25 [facility] (Rec: 06/24/18 12:33 [facility] [id number]) Special Tests Lumbar Spine Special Tests Slump Test Results positive R(unable to go fully into slump d/t back pain)neck flex w/knee ext Straight Leg Raise Test Results neg B-HS tightness PT-OP-M Strength Start: 06/24/18 08:15 Freq: Status: Active Protocol: Document 06/24/18 12:25 [facility] (Rec: 06/24/18 12:33 [facility] [id number]) Hip Strength Hip Manual Muscle Testing Right Flexion (L2) 4 Good Comments pain B- extensive testing not done d/t pain. Left Flexion (L2) 4 Good Comments pain w/hip flex PT-OP-Q Treatments Start: 06/24/18 08:15 Freq: Status: Active Protocol: Document 07/26/18 10:50 ML (Rec: 07/26/18 11:13 ML [id number]) Therapeutic Exercises Sidelying Exercises multifidi Sidelying Exercise Name multifidi contraction Side right Comments sidelying; tactile cue for contraction; educated pt on feeling to do @ home Manual Therapy Treatment Soft Tissue Mobilization piriformis & glutes Body Location L Mobilization Type Rolling Sustained Pressure Intensity/Depth Moderate Body Position Sidelying Comments CR of DF/PF Joint Mobilizations lumbar Joint lumbar spine Direction transverse R Comments assisted with ant elevation of pelvis, but terminated pelvis activation due to pain coccyx Joint L UPA Comments side lying R and prone; assisted with deep breathing hip Joint hip R Direction inf glide Grade III Body Position Hooklying Comments towel on belt for pt comfort; bilat UE diagonal chop toward R hip CR; terminated due to pain on R of sacrum Neuro Re-Education Treatment Other Activities post depression Details sustained hold R neutral position Comments terminated due to pain on L side near SI ant elevation Details sustained hold L neutral position Comments R; terminated due to pain with contraction PT-OP-R Modalities Start: 06/24/18 08:15 Freq: Status: Active Protocol: Document 07/26/18 10:50 ML (Rec: 07/26/18 11:13 ML [id number]) Hot Pack/Cold Pack Treatment Cold Pack Location lumbar & R glutes Patient Position Sidelying Treatment Duration (minutes) 10 Comments strap PT-OP-T Assessment and Plan Start: 06/24/18 08:15 Freq: Status: Active Protocol: Document 07/22/18 13:21 [facility] (Rec: 07/22/18 13:41 [facility] [id number]) Physical Therapy Assessment Goals Two Impairment mobility Short Term Goal (STG) Pt will be able to sit and stand for 15 min without inc pain STG Duration 07/25/18 Fpc Goal (LTG) Pt will be able to return to work with min inc pain LTG Duration 08/24/18 One Impairment pain Short Term Goal (STG) daily pain to 2/10 STG Duration 07/25/18 [facility] Goal (LTG) Worst pain to 5/10 LTG Duration 08/24/18 Assessment Summary Assessment Pt cont to improve with gait, but still has dec stance time on R with dec post depression. Pt cont to have elevation of L side but less than prior session. Pt had significant questions re: prognosis & anatomy which was discussed Physical Therapy Plan Frequency and Duration Frequency of Treatment 2x/Week Duration of Treatment 2 months Plan of Care Start Date 06/24/18 Plan of Care End Date 08/24/18 Next Visit Focus/Plan Next Note Type Treatment Note Next Visit Plan coccyx mobs, core stability rx ; discuss questions to ask MD
--- NOTE | 2018-07-26 16:17 | PT.OTN ---
Current Diagnoses Other congenital malformations of spine, not associated with scoliosis (07/26/18) Physical Therapy Treatment Note PT-OP-A Visit Information Start: 06/24/18 08:15 Freq: Status: Active Protocol: Document 07/26/18 10:50 ML (Rec: 07/26/18 11:13 ML [id number]) Out-Patient Physical Therapy Visit Information Visit Information Visit Type Treatment Note Visit Start Time 10:30 Visit Stop Time 11:25 Total Visit Minutes 55 Visit Number / Number of GRADES 1 THROUGH 5 TEACHER Visits 0 PT-OP-B Current Condition Start: 06/24/18 08:15 Freq: Status: Active Protocol: Document 06/24/18 12:25 [facility] (Rec: 06/24/18 16:57 [facility] [id number]) Current Condition History of Current Condition Onset Date about 3-5 years ago initial injury Current Complaints LBP with RLE pain History of Current Condition Pt reports he had an injury about 3 to 5 years ago when he was doing a 4 person lift for a 450 lb thing at work and then had to close the large lid and jumped off and noticed he tweaked his back> Reports when he got out the shower he felt like he couldn't walk and couldn't get up from floor. He rested in bed per MD recommendation for 3 days. [place] did [place] and came back and did PT but did not have relief with it. MD kept dx as mm spasm each time he went in and would give him mm relaxors . He had anohter injury where he was exercising recently and doing broad jumps and felt very uncomfortable in his back which inc his pain. 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 Pt does yoga and elliptical but is painful. He had an SUKHWINDER which gave him small bit of relief. Prior Treatments and Tests MRI & xrays & 1 injection giving some help Future Testing and Treatments Planned another injection soon Treatment Goals Patient/Caregiver Goals dec pain , return to being active PT-OP-C Subjective Start: 06/24/18 08:15 Freq: Status: Active Protocol: Document 07/26/18 10:50 ML (Rec: 07/26/18 11:13 ML [id number]) OP-PT Subjective Patient Comments Patient Comments Pt reports that he felt ok after last visit, but the last couple days have been more painful. PT-OP-F Manual Assessment Start: 06/24/18 08:15 Freq: Status: Active Protocol: Document 06/24/18 12:25 [facility] (Rec: 06/24/18 12:33 [facility] [id number]) Manual Assessments Soft Tissue Assessment Soft Tissue Mobility Assessment Tenderness & tightness throughout LB Joint Mobility Assessment Joint Mobility Assessment L iliac crest higher than R PT-OP-G Mobility & Gait Start: 06/24/18 08:15 Freq: Status: Active Protocol: Document 06/24/18 12:25 [facility] (Rec: 06/24/18 12:33 [facility] [id number]) OP Mobility Evaluation Bed Mobility Rolling rolls segmentally, not with core first strategy Supine to and from Sit does sit up and sit back for supine <>sit OP Gait Assessment Comments Gait Comments Lat lean over RLE with dec stance time and dec post depression PT-OP-K Range of Motion Start: 06/24/18 08:15 Freq: Status: Active Protocol: Document 06/24/18 12:25 [facility] (Rec: 06/24/18 12:33 [facility] [id number]) Lumbar Spine Range of Motion Lumbar Spine Active Degrees Testing Position standing Flexion 24 Extension 0 Lateral Flexion Left 10 Lateral Flexion Right 10 Comments 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 PT-OP-L Special Tests Start: 06/24/18 08:15 Freq: Status: Active Protocol: Document 06/24/18 12:25 [facility] (Rec: 06/24/18 12:33 [facility] [id number]) Special Tests Lumbar Spine Special Tests Slump Test Results positive R(unable to go fully into slump d/t back pain)neck flex w/knee ext Straight Leg Raise Test Results neg B-HS tightness PT-OP-M Strength Start: 06/24/18 08:15 Freq: Status: Active Protocol: Document 06/24/18 12:25 [facility] (Rec: 06/24/18 12:33 [facility] [id number]) Hip Strength Hip Manual Muscle Testing Right Flexion (L2) 4 Good Comments pain B- extensive testing not done d/t pain. Left Flexion (L2) 4 Good Comments pain w/hip flex PT-OP-Q Treatments Start: 06/24/18 08:15 Freq: Status: Active Protocol: Document 07/26/18 10:50 ML (Rec: 07/26/18 11:13 ML [id number]) Therapeutic Exercises Sidelying Exercises multifidi Sidelying Exercise Name multifidi contraction Side right Comments sidelying; tactile cue for contraction; educated pt on feeling to do @ home Manual Therapy Treatment Soft Tissue Mobilization piriformis & glutes Body Location L Mobilization Type Rolling Sustained Pressure Intensity/Depth Moderate Body Position Sidelying Comments CR of DF/PF Joint Mobilizations lumbar Joint lumbar spine Direction transverse R Comments assisted with ant elevation of pelvis, but terminated pelvis activation due to pain coccyx Joint L UPA Comments side lying R and prone; assisted with deep breathing hip Joint hip R Direction inf glide Grade III Body Position Hooklying Comments towel on belt for pt comfort; bilat UE diagonal chop toward R hip CR; terminated due to pain on R of sacrum Neuro Re-Education Treatment Other Activities post depression Details sustained hold R neutral position Comments terminated due to pain on L side near SI ant elevation Details sustained hold L neutral position Comments R; terminated due to pain with contraction PT-OP-R Modalities Start: 06/24/18 08:15 Freq: Status: Active Protocol: Document 07/26/18 10:50 ML (Rec: 07/26/18 11:13 ML [id number]) Hot Pack/Cold Pack Treatment Cold Pack Location lumbar & R glutes Patient Position Sidelying Treatment Duration (minutes) 10 Comments strap PT-OP-T Assessment and Plan Start: 06/24/18 08:15 Freq: Status: Active Protocol: Document 07/26/18 10:50 [facility] (Rec: 07/26/18 16:16 [facility] [id number]) Physical Therapy Assessment Goals Two Impairment mobility Short Term Goal (STG) Pt will be able to sit and stand for 15 min without inc pain STG Duration 07/25/18 Syrup [employer] Cook Goal (LTG) Pt will be able to return to work with min inc pain LTG Duration 08/24/18 One Impairment pain Short Term Goal (STG) daily pain to 2/10 STG Duration 07/25/18 [employer] Cook Goal (LTG) Worst pain to 5/10 LTG Duration 08/24/18 Assessment Summary Assessment Pt cont to have significant restriction in gluteal region, which makes coccyx difficult to palpate. He appears to have L sidebend & L rotation of coccyx, which improved with L UPA to coccyx. Pt was educated on external coccyx mob before performing it and consented to treatment. Physical Therapy Plan Frequency and Duration Frequency of Treatment 2x/Week Duration of Treatment 2 months Plan of Care Start Date 06/24/18 Plan of Care End Date 08/24/18 Next Visit Focus/Plan Next Note Type Treatment Note Next Visit Plan coccyx flex mob, cont soft tissue in glutes & hip flexors ; hip on axis
--- NOTE | 2018-08-01 14:25 | PT.OTN ---
Current Diagnoses Other congenital malformations of spine, not associated with scoliosis (08/01/18) Physical Therapy Treatment Note PT-OP-A Visit Information Start: 06/24/18 08:15 Freq: Status: Active Protocol: Document 08/01/18 11:15 [facility] (Rec: 08/01/18 12:04 [facility] [id number]) Out-Patient Physical Therapy Visit Information Visit Information Visit Type Treatment Note Visit Start Time 10:30 Visit Stop Time 11:25 Total Visit Minutes 55 Visit Number 06/17 Number of OIL PAINT SHADER Visits 0 PT-OP-B Current Condition Start: 06/24/18 08:15 Freq: Status: Active Protocol: Document 06/24/18 12:25 [facility] (Rec: 06/24/18 16:57 [facility] [id number]) Current Condition History of Current Condition Onset Date about 3-5 years ago initial injury Current Complaints LBP with RLE pain History of Current Condition Pt reports he had an injury about 3 to 5 years ago when he was doing a 4 person lift for a 450 lb thing at work and then had to close the large lid and jumped off and noticed he tweaked his back> Reports when he got out the shower he felt like he couldn't walk and couldn't get up from floor. He rested in bed per MD recommendation for 3 days. [place] did [place] and came back and did PT but did not have relief with it. MD kept dx as mm spasm each time he went in and would give him mm relaxors . He had anohter injury where he was exercising recently and doing broad jumps and felt very uncomfortable in his back which inc his pain. 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 Pt does yoga and elliptical but is painful. He had an SUKHWINDER which gave him small bit of relief. Prior Treatments and Tests MRI & xrays & 1 injection giving some help Future Testing and Treatments Planned another injection soon Treatment Goals Patient/Caregiver Goals dec pain , return to being active PT-OP-C Subjective Start: 06/24/18 08:15 Freq: Status: Active Protocol: Document 08/01/18 11:15 [facility] (Rec: 08/01/18 12:04 [facility] [id number]) OP-PT Subjective Patient Comments Patient Comments Pt reports he feels like walking has improved with PT but still has impired sitting anddifficulty bending over. PT-OP-F Manual Assessment Start: 06/24/18 08:15 Freq: Status: Active Protocol: Document 06/24/18 12:25 [facility] (Rec: 06/24/18 12:33 [facility] [id number]) Manual Assessments Soft Tissue Assessment Soft Tissue Mobility Assessment Tenderness & tightness throughout LB Joint Mobility Assessment Joint Mobility Assessment L iliac crest higher than R PT-OP-G Mobility & Gait Start: 06/24/18 08:15 Freq: Status: Active Protocol: Document 06/24/18 12:25 [facility] (Rec: 06/24/18 12:33 [facility] [id number]) OP Mobility Evaluation Bed Mobility Rolling rolls segmentally, not with core first strategy Supine to and from Sit does sit up and sit back for supine <>sit OP Gait Assessment Comments Gait Comments Lat lean over RLE with dec stance time and dec post depression PT-OP-K Range of Motion Start: 06/24/18 08:15 Freq: Status: Active Protocol: Document 06/24/18 12:25 [facility] (Rec: 06/24/18 12:33 [facility] [id number]) Lumbar Spine Range of Motion Lumbar Spine Active Degrees Testing Position standing Flexion 24 Extension 0 Lateral Flexion Left 10 Lateral Flexion Right 10 Comments 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 PT-OP-L Special Tests Start: 06/24/18 08:15 Freq: Status: Active Protocol: Document 06/24/18 12:25 [facility] (Rec: 06/24/18 12:33 [facility] [id number]) Special Tests Lumbar Spine Special Tests Slump Test Results positive R(unable to go fully into slump d/t back pain)neck flex w/knee ext Straight Leg Raise Test Results neg B-HS tightness PT-OP-M Strength Start: 06/24/18 08:15 Freq: Status: Active Protocol: Document 06/24/18 12:25 [facility] (Rec: 06/24/18 12:33 [facility] [id number]) Hip Strength Hip Manual Muscle Testing Right Flexion (L2) 4 Good Comments pain B- extensive testing not done d/t pain. Left Flexion (L2) 4 Good Comments pain w/hip flex PT-OP-Q Treatments Start: 06/24/18 08:15 Freq: Status: Active Protocol: Document 08/01/18 11:15 [facility] (Rec: 08/01/18 14:25 [facility] [id number]) Therapeutic Exercises Supine Exercises piriformis stretch Supine Exercise Name piriformis stretch Comments manual x30 sec Manual Therapy Treatment Soft Tissue Mobilization piriformis & glutes Body Location R Mobilization Type Rolling Sustained Pressure Intensity/Depth Moderate Body Position Sidelying Joint Mobilizations coccyx Joint L UPA & R transverse Comments prone; assisted with deep breathing hip Joint hip R Direction inf glide Grade III Body Position Hooklying Comments FM ; attempted on axis B but unable PT-OP-R Modalities Start: 06/24/18 08:15 Freq: Status: Active Protocol: Document 08/01/18 11:15 [facility] (Rec: 08/01/18 14:25 [facility] [id number]) Hot Pack/Cold Pack Treatment Cold Pack Location lumbar & R glutes Patient Position Sidelying Treatment Duration (minutes) 10 Comments strap PT-OP-T Assessment and Plan Start: 06/24/18 08:15 Freq: Status: Active Protocol: Document 08/01/18 11:15 [facility] (Rec: 08/01/18 14:25 [facility] [id number]) Physical Therapy Assessment Goals Two Impairment mobility Short Term Goal (STG) Pt will be able to sit and stand for 15 min without inc pain STG Duration 07/25/18 Care Home Goal (LTG) Pt will be able to return to work with min inc pain LTG Duration 08/24/18 One Impairment pain Short Term Goal (STG) daily pain to 2/10 STG Duration 07/25/18 Level Vial Marker Goal (LTG) Worst pain to 5/10 LTG Duration 08/24/18 Assessment Summary Assessment Unable to treat coccyx flexion d/t tight glutes. Attempted in quadruped. Pt improved mildly in coccyx position with treatment, but cont to have SB to L & rotation R. He has impaired hip motion with ER with dec ant glide but improved mechanics with IR. Difficulty to mobilize d/t pain in LB with hip ER. Pt able to achieve piriformis stretch after inf hip mob Physical Therapy Plan Frequency and Duration Frequency of Treatment 2x/Week Duration of Treatment 2 months Plan of Care Start Date 06/24/18 Plan of Care End Date 08/24/18 Next Visit Focus/Plan Next Note Type Treatment Note Next Visit Plan coccyx mobs, hip on axis
--- NOTE | 2018-08-03 11:25 | PT.OTN ---
Current Diagnoses Other congenital malformations of spine, not associated with scoliosis (08/03/18) Physical Therapy Treatment Note PT-OP-A Visit Information Start: 06/24/18 08:15 Freq: Status: Active Protocol: Document 08/03/18 11:15 [facility] (Rec: 08/05/18 09:07 [facility] [id number]) Out-Patient Physical Therapy Visit Information Visit Information Visit Type Treatment Note Visit Start Time 10:30 Visit Stop Time 11:25 Total Visit Minutes 55 Visit Number 07/18 Number of CARPENTER SHIP Visits 0 PT-OP-B Current Condition Start: 06/24/18 08:15 Freq: Status: Active Protocol: Document 06/24/18 12:25 [facility] (Rec: 06/24/18 16:57 [facility] [id number]) Current Condition History of Current Condition Onset Date about 3-5 years ago initial injury Current Complaints LBP with RLE pain History of Current Condition Pt reports he had an injury about 3 to 5 years ago when he was doing a 4 person lift for a 450 lb thing at work and then had to close the large lid and jumped off and noticed he tweaked his back> Reports when he got out the shower he felt like he couldn't walk and couldn't get up from floor. He rested in bed per MD recommendation for 3 days. [place] did PT [place] and came back and did PT but did not have relief with it. MD kept dx as mm spasm each time he went in and would give him mm relaxors . He had anohter injury where he was exercising recently and doing broad jumps and felt very uncomfortable in his back which inc his pain. 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 Pt does yoga and elliptical but is painful. He had an SUKHWINDER which gave him small bit of relief. Prior Treatments and Tests MRI & xrays & 1 injection giving some help Future Testing and Treatments Planned another injection soon Treatment Goals Patient/Caregiver Goals dec pain , return to being active PT-OP-C Subjective Start: 06/24/18 08:15 Freq: Status: Active Protocol: Document 08/03/18 11:15 [facility] (Rec: 08/05/18 09:07 [facility] [id number]) OP-PT Subjective Patient Comments Patient Comments Pt reports he sees Aug 24. He is going to talk to manager of case about possibly cont PT PT-OP-F Manual Assessment Start: 06/24/18 08:15 Freq: Status: Active Protocol: Document 06/24/18 12:25 [facility] (Rec: 06/24/18 12:33 [facility] [id number]) Manual Assessments Soft Tissue Assessment Soft Tissue Mobility Assessment Tenderness & tightness throughout LB Joint Mobility Assessment Joint Mobility Assessment L iliac crest higher than R PT-OP-G Mobility & Gait Start: 06/24/18 08:15 Freq: Status: Active Protocol: Document 06/24/18 12:25 [facility] (Rec: 06/24/18 12:33 [facility] [id number]) OP Mobility Evaluation Bed Mobility Rolling rolls segmentally, not with core first strategy Supine to and from Sit does sit up and sit back for supine <>sit OP Gait Assessment Comments Gait Comments Lat lean over RLE with dec stance time and dec post depression PT-OP-K Range of Motion Start: 06/24/18 08:15 Freq: Status: Active Protocol: Document 06/24/18 12:25 [facility] (Rec: 06/24/18 12:33 [facility] [id number]) Lumbar Spine Range of Motion Lumbar Spine Active Degrees Testing Position standing Flexion 24 Extension 0 Lateral Flexion Left 10 Lateral Flexion Right 10 Comments 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 PT-OP-L Special Tests Start: 06/24/18 08:15 Freq: Status: Active Protocol: Document 06/24/18 12:25 [facility] (Rec: 06/24/18 12:33 [facility] [id number]) Special Tests Lumbar Spine Special Tests Slump Test Results positive R(unable to go fully into slump d/t back pain)neck flex w/knee ext Straight Leg Raise Test Results neg B-HS tightness PT-OP-M Strength Start: 06/24/18 08:15 Freq: Status: Active Protocol: Document 06/24/18 12:25 [facility] (Rec: 06/24/18 12:33 [facility] [id number]) Hip Strength Hip Manual Muscle Testing Right Flexion (L2) 4 Good Comments pain B- extensive testing not done d/t pain. Left Flexion (L2) 4 Good Comments pain w/hip flex PT-OP-Q Treatments Start: 06/24/18 08:15 Freq: Status: Active Protocol: Document 08/03/18 11:15 [facility] (Rec: 08/05/18 09:40 [facility] [id number]) Therapeutic Activity Therapeutic Activity bending over Comments Working on positiong for bending back to get to feet and edu on adaptive equipment for dressing Manual Therapy Treatment Soft Tissue Mobilization piriformis & glutes Body Location B Mobilization Type Rolling Sustained Pressure Intensity/Depth Moderate Body Position Sidelying psoas Body Location L Mobilization Type Sustained Pressure iliacus Body Location iliacus Mobilization Type Sustained Pressure Comments B Joint Mobilizations hip Joint hip L Direction ant glide Grade IV Body Position Prone Comments Sustained-improved hip ER PT-OP-R Modalities Start: 06/24/18 08:15 Freq: Status: Active Protocol: Document 08/03/18 11:15 [facility] (Rec: 08/05/18 09:40 [facility] [id number]) Hot Pack/Cold Pack Treatment Cold Pack Location lumbar & R glutes Patient Position Sidelying Treatment Duration (minutes) 10 Comments strap PT-OP-T Assessment and Plan Start: 06/24/18 08:15 Freq: Status: Active Protocol: Document 08/03/18 11:15 [facility] (Rec: 08/05/18 09:40 [facility] [id number]) Physical Therapy Assessment Goals Two Impairment mobility Short Term Goal (STG) Pt will be able to sit and stand for 15 min without inc pain STG Duration 07/25/18 Wrapper Layer Goal (LTG) Pt will be able to return to work with min inc pain LTG Duration 08/24/18 One Impairment pain Short Term Goal (STG) daily pain to 2/10 STG Duration 07/25/18 Wrapper Layer Goal (LTG) Worst pain to 5/10 LTG Duration 08/24/18 Assessment Summary Assessment Pt improved with L>R hip flexor movement. He cont to have more psoas tightness > iliacus. Unable to access ant lumbar spine d/t psoas tightness. Physical Therapy Plan Frequency and Duration Frequency of Treatment 2x/Week Duration of Treatment 2 months Plan of Care Start Date 06/24/18 Plan of Care End Date 08/24/18 Next Visit Focus/Plan Next Note Type Progress Note Next Visit Plan Re-assess pt status; cont to work inomminate motion.
--- NOTE | 2018-08-12 16:23 | PT.OTN ---
Current Diagnoses Other congenital malformations of spine, not associated with scoliosis (08/12/18) Physical Therapy Treatment Note PT-OP-A Visit Information Start: 06/24/18 08:15 Freq: Status: Active Protocol: Document 08/12/18 16:11 [facility] (Rec: 08/12/18 16:23 [facility] [id number]) Out-Patient Physical Therapy Visit Information Visit Information Visit Type Treatment Note Visit Start Time 10:30 Visit Stop Time 11:20 Total Visit Minutes 50 Visit Number 08/17 Number of CREDIT NEGOTIATOR Visits 0 PT-OP-B Current Condition Start: 06/24/18 08:15 Freq: Status: Active Protocol: Document 06/24/18 12:25 [facility] (Rec: 06/24/18 16:57 [facility] [id number]) Current Condition History of Current Condition Onset Date about 3-5 years ago initial injury Current Complaints LBP with RLE pain History of Current Condition Pt reports he had an injury about 3 to 5 years ago when he was doing a 4 person lift for a 450 lb thing at work and then had to close the large lid and jumped off and noticed he tweaked his back> Reports when he got out the shower he felt like he couldn't walk and couldn't get up from floor. He rested in bed per MD recommendation for 3 days. He did PT [place] and came back and did PT but did not have relief with it. MD kept dx as mm spasm each time he went in and would give him mm relaxors . He had anohter injury where he was exercising recently and doing broad jumps and felt very uncomfortable in his back which inc his pain. 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 Pt does yoga and elliptical but is painful. He had an SUKHWINDER which gave him small bit of relief. Prior Treatments and Tests MRI & xrays & 1 injection giving some help Future Testing and Treatments Planned another injection soon Treatment Goals Patient/Caregiver Goals dec pain , return to being active PT-OP-C Subjective Start: 06/24/18 08:15 Freq: Status: Active Protocol: Document 08/12/18 16:11 [facility] (Rec: 08/12/18 16:23 [facility] [id number]) OP-PT Subjective Patient Comments Patient Comments Pt reports he feels like he has progressed but is still very limited in bending. PT-OP-F Manual Assessment Start: 06/24/18 08:15 Freq: Status: Active Protocol: Document 06/24/18 12:25 [facility] (Rec: 06/24/18 12:33 [facility] [id number]) Manual Assessments Soft Tissue Assessment Soft Tissue Mobility Assessment Tenderness & tightness throughout LB Joint Mobility Assessment Joint Mobility Assessment L iliac crest higher than R PT-OP-G Mobility & Gait Start: 06/24/18 08:15 Freq: Status: Active Protocol: Document 06/24/18 12:25 [facility] (Rec: 06/24/18 12:33 [facility] [id number]) OP Mobility Evaluation Bed Mobility Rolling rolls segmentally, not with core first strategy Supine to and from Sit does sit up and sit back for supine <>sit OP Gait Assessment Comments Gait Comments Lat lean over RLE with dec stance time and dec post depression PT-OP-K Range of Motion Start: 06/24/18 08:15 Freq: Status: Active Protocol: Document 06/24/18 12:25 [facility] (Rec: 06/24/18 12:33 [facility] [id number]) Lumbar Spine Range of Motion Lumbar Spine Active Degrees Testing Position standing Flexion 24 Extension 0 Lateral Flexion Left 10 Lateral Flexion Right 10 Comments 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 PT-OP-L Special Tests Start: 06/24/18 08:15 Freq: Status: Active Protocol: Document 06/24/18 12:25 [facility] (Rec: 06/24/18 12:33 [facility] [id number]) Special Tests Lumbar Spine Special Tests Slump Test Results positive R(unable to go fully into slump d/t back pain)neck flex w/knee ext Straight Leg Raise Test Results neg B-HS tightness PT-OP-M Strength Start: 06/24/18 08:15 Freq: Status: Active Protocol: Document 06/24/18 12:25 [facility] (Rec: 06/24/18 12:33 [facility] [id number]) Hip Strength Hip Manual Muscle Testing Right Flexion (L2) 4 Good Comments pain B- extensive testing not done d/t pain. Left Flexion (L2) 4 Good Comments pain w/hip flex PT-OP-Q Treatments Start: 06/24/18 08:15 Freq: Status: Active Protocol: Document 08/12/18 16:11 [facility] (Rec: 08/12/18 16:23 [facility] [id number]) Therapeutic Exercises Supine Exercises crunches Supine Exercise Name with focus on over flexing cervical & thoracic spine leg ext Supine Exercise Name single leg ext during UE chop marching Supine Exercise Name scissors with chop pattern Other Exercises quadruped Other Exercise Name quadruped shoulder flex Comments attempted hip ext but too painful Manual Therapy Treatment Soft Tissue Mobilization psoas Body Location B Mobilization Type Sustained Pressure iliacus Body Location iliacus Mobilization Type Sustained Pressure Comments R Joint Mobilizations hip Joint hip R Direction inf glide Grade IV Body Position Prone Comments FM Self-Care/Home Management Treatment Activities Self-Care/Home Management Activities edu on progressing activity ( like elliptical) slowly and staying in a comfortable range . Edu on discussion with MD re : test results and MD plan for progression of pt. PT-OP-R Modalities Start: 06/24/18 08:15 Freq: Status: Active Protocol: Document 08/03/18 11:15 [facility] (Rec: 08/05/18 09:40 [facility] [id number]) Hot Pack/Cold Pack Treatment Cold Pack Location lumbar & R glutes Patient Position Sidelying Treatment Duration (minutes) 10 Comments strap PT-OP-T Assessment and Plan Start: 06/24/18 08:15 Freq: Status: Active Protocol: Document 08/12/18 16:11 [facility] (Rec: 08/12/18 16:23 [facility] [id number]) Physical Therapy Assessment Goals Two Impairment mobility Short Term Goal (STG) Pt will be able to sit and stand for 15 min without inc pain STG Duration achieved Psychologist Chief Goal (LTG) Pt will be able to return to work with min inc pain LTG Duration 08/24/18 One Impairment pain Short Term Goal (STG) daily pain to 2/10 STG Duration 07/25/18 (4/10) Snf Goal (LTG) Worst pain to 5/10 LTG Duration 08/24/18 (7/10) Assessment Summary Assessment Pt has made good progress towards goals, but cont to be significantly limited with bending and activity which prevents him from being able to do his typical work tasks. Discussed with pt at length re : him needing to follow up with surgeon to have better idea of results of testing. At this time, it does not appear like pt would progress to full activity level with just PT alone as he still is unable to do typical daily activities like putting on socks without difficulty. He is unable to do the exercises required of him for his fitness testing and is unable to fully perform his job. Pt is to follow up with surgeon on 08/24 and discuss future options. It appears like he is significantly limited by bertolotti syndrome as he has significant tenderness around SI joint and lumbosacral junction. Attempts have been made to mobilize SI joint, but are too painful, so have been discontinued. Physical Therapy Plan Frequency and Duration Frequency of Treatment 2x/Week Duration of Treatment 2 months Plan of Care Start Date 06/24/18 Plan of Care End Date 08/24/18 Next Visit Focus/Plan Next Note Type Treatment Note Next Visit Plan Wait until pt follows up with MD for further treatment
--- NOTE | 2018-10-05 13:36 | PT.OPDS ---
Current Diagnoses Other congenital malformations of spine, not associated with scoliosis (08/12/18) Provider Visit Care Team Role Provider Type Maribell Francisco Attending Provider Non-Staff Primary Care Provider Specialty: Medical Address: [address] [place] [address] [phone], [place], [phone] Fax: Email: Visit Number Visit Number 08/17 Discharge Summary PT-OP-B Current Condition Start: 06/24/18 08:15 Freq: Status: Active Protocol: Document 06/24/18 12:25 [facility] (Rec: 06/24/18 16:57 [facility] [id number]) Current Condition History of Current Condition Onset Date about 3-5 years ago initial injury Current Complaints LBP with RLE pain History of Current Condition Pt reports he had an injury about 3 to 5 years ago when he was doing a 4 person lift for a 450 lb thing at work and then had to close the large lid and jumped off and noticed he tweaked his back> Reports when he got out the shower he felt like he couldn't walk and couldn't get up from floor. He rested in bed per MD recommendation for 3 days. He did PT [place] and came back and did PT but did not have relief with it. MD kept dx as mm spasm each time he went in and would give him mm relaxors . He had anohter injury where he was exercising recently and doing broad jumps and felt very uncomfortable in his back which inc his pain. 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 Pt does yoga and elliptical but is painful. He had an SUKHWINDER which gave him small bit of relief. Prior Treatments and Tests MRI & xrays & 1 injection giving some help Future Testing and Treatments Planned another injection soon Treatment Goals Patient/Caregiver Goals dec pain , return to being active PT-OP-C Subjective Start: 06/24/18 08:15 Freq: Status: Active Protocol: Document 08/12/18 16:11 [facility] (Rec: 08/12/18 16:23 [facility] [id number]) OP-PT Subjective Patient Comments Patient Comments Pt reports he feels like he has progressed but is still very limited in bending. PT-OP-F Manual Assessment Start: 06/24/18 08:15 Freq: Status: Active Protocol: Document 06/24/18 12:25 [facility] (Rec: 06/24/18 12:33 [facility] [id number]) Manual Assessments Soft Tissue Assessment Soft Tissue Mobility Assessment Tenderness & tightness throughout LB Joint Mobility Assessment Joint Mobility Assessment L iliac crest higher than R PT-OP-G Mobility & Gait Start: 06/24/18 08:15 Freq: Status: Active Protocol: Document 06/24/18 12:25 [facility] (Rec: 06/24/18 12:33 [facility] [id number]) OP Mobility Evaluation Bed Mobility Rolling rolls segmentally, not with core first strategy Supine to and from Sit does sit up and sit back for supine <>sit OP Gait Assessment Comments Gait Comments Lat lean over RLE with dec stance time and dec post depression PT-OP-K Range of Motion Start: 06/24/18 08:15 Freq: Status: Active Protocol: Document 06/24/18 12:25 [facility] (Rec: 06/24/18 12:33 [facility] [id number]) Lumbar Spine Range of Motion Lumbar Spine Active Degrees Testing Position standing Flexion 24 Extension 0 Lateral Flexion Left 10 Lateral Flexion Right 10 Comments 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 PT-OP-L Special Tests Start: 06/24/18 08:15 Freq: Status: Active Protocol: Document 06/24/18 12:25 [facility] (Rec: 06/24/18 12:33 [facility] [id number]) Special Tests Lumbar Spine Special Tests Slump Test Results positive R(unable to go fully into slump d/t back pain)neck flex w/knee ext Straight Leg Raise Test Results neg B-HS tightness PT-OP-M Strength Start: 06/24/18 08:15 Freq: Status: Active Protocol: Document 06/24/18 12:25 [facility] (Rec: 06/24/18 12:33 [facility] [id number]) Hip Strength Hip Manual Muscle Testing Right Flexion (L2) 4 Good Comments pain B- extensive testing not done d/t pain. Left Flexion (L2) 4 Good Comments pain w/hip flex PT-OP-T Assessment and Plan Start: 06/24/18 08:15 Freq: Status: Active Protocol: Document 10/05/18 13:35 [facility] (Rec: 10/05/18 13:36 [facility] [id number]) Physical Therapy Plan Discharge Physical Therapy Discharge Reasons No Longer Attending PT Discharge Comments Pt completed the visits that were authorized and was following up with surgeon for further treatment. Pt instructed to get new referal if further PT recommended. Pt to cont w/HEP.
== END 2018-10-26 08:45 ==
LOC: PHYS 09:45
PROVIDERS: PCP Student in an Organized Health Care Education/Training Program; Visit Provider Student in an Organized Health Care Education/Training Program
DX: Q76.49 Other congenital malformations of spine, not associated with scoliosis (principal)
CPT/HCPCS: 97010; 97110; 97112; 97140; 97162; 97530; 97535

== ENCOUNTER 2018-10-10 08:47 | Emergency (ER) | payer OTHER, SELFPAY ==
--- NOTE | 2018-10-10 08:49 | ED.CHESTPAIN ---
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 He also is complaining of some vague chest discomfort. No recent travel. No recent antibiotic use. No lower extremity swelling. He states that when he is up moving around he does not experience symptoms all that much. He did say that last evening he had an episode of palpitations. Related Data Previous Rx's Medication Instructions Recorded albuterol sulfate 2 puff INHALATION Q4-6H PRN #18 10/10/18 gram loratadine [Claritin] 10 mg PO DAILY #30 tab 10/10/18 Allergies Allergy/AdvReac Type Severity Reaction Status Date / Time No Known Drug Allergies Allergy Verified 10/10/18 08:52 Review of Systems Constitutional Denies fever(s) Cardiovascular Reports chest pain, Reports palpitations and Denies dyspnea Respiratory Denies dyspnea Gastrointestinal Gastrointestinal: Reports abdominal pain, Reports bloating, Denies change in bowel habits, Denies nausea and Denies vomiting Comments: Genitourinary Denies dysuria Musculoskeletal Denies myalgias and Denies arthralgias Comments: No lower extremity swelling Integumentary/Breasts Denies rash Neurologic Denies behavioral changes Psychiatric Denies behavioral changes Endocrine Reports palpitations Hematologic/Lymphatic Comments: Not on anticoagulation PFSH Medical History Healthy adult (Acute) Surgical History No pertinent past surgical history (Acute) Social History Smoking Status: Never smoker Social History Smoking Status: Never smoker Exam Initial Vital Signs Initial Vital Signs: Vital Signs Temperature 97.6 F 10/10/18 08:52 Pulse Rate 60 10/10/18 08:52 Respiratory Rate 16 10/10/18 08:52 Blood Pressure 117/76 10/10/18 08:52 Pulse Oximetry 97 10/10/18 08:52 Const General: cooperative, healthy appearing, comfortable, well developed, well groomed and No acute distress Orientation: alert, awake and oriented x3 HENMT Head: normal to inspection and normocephalic Chest Chest: normal inspection of the chest and No tenderness Resp Effort & Inspection: normal respiratory effort Auscultation: clear to auscultation bilaterally Cardio Rate: regular rate Rhythm: regular rhythm Pulses: radial pulses present GI Inspection: non-distended Palpation: soft, No firm, No guarding, No rigid and No tender Skin Lesions: no lesions Rashes: no rashes Neuro General: alert, awake and oriented x3 Extrem General: normal to inspection and capillary refill normal Psych Appearance: grossly normal and well kempt Scores HEART Score Heart Score history: Slightly Suspicious Heart Score EKG: Normal Heart Score Age: < 45 years old Heart Score risk factors: No known risk factors Heart Score troponin: < or = to normal limit Heart Score Total: 0 PERC Score Age greater than or equal to 50 years: No Heart rate greater than or equal to 100 bpm: No Room Air O2 Sat less than 95%: No Unilateral leg swelling: No Recent trauma or surgery: No Hemoptysis: No Prior PE or DVT: No Hormone Use: No Total PERC Score: 0 Course Orders Ordered: ED Orders 10/10/18 08:49 XR chest 1V Stat EKG-12 Lead Stat 10/10/18 09:10 B Type Natriuretic Peptide Stat Basic Metabolic Panel Stat Complete Blood Count AUTO DIFF Stat D Dimer Stat Procalcitonin Stat Troponin I Stat Vital Signs - 8 hr 10/10/18 08:52 10/10/18 10:00 Temperature 97.6 F Pulse Rate 60 55 L Respiratory Rate 16 20 Blood Pressure 117/76 Blood Pressure [Left Arm] 111/69 Pulse Oximetry 97 98 MDM - Chest Pain Lab Data Attestation: I reviewed the patient's lab results. Result diagrams: 10/10/18 09:10 10/10/18 09:10 Lab Results 10/10/18 10/10/18 10/10/18 Range/Units 09:10 09:10 09:10 WBC 5.4 (4.5-11.0) X10^3/uL RBC 5.05 (4.5-5.9) X10^6/uL Hgb 15.0 (13.5-17.5) g/dL Hct 43.2 (41-53) % MCV 85.4 (80-100) fL MCH 29.7 (26-34) PG MCHC 34.8 (30-36) % RDW 13.7 (11.6-14.8) % Plt Count 271 (150-400) X10^3/uL Neut % (Auto) 65.0 (50-75) % Lymph % (Auto) 22.8 L (25-40) % [place] % (Auto) 8.9 (3-14) % Eos % (Auto) 2.8 (2-4) % Baso % (Auto) 0.5 (0-2) % Neut # (Auto) 3500 (0928-2496) /uL Lymph # (Auto) 1200 (8455-1761) /uL [place] # (Auto) 500 (0-900) /uL Eos # (Auto) 200 (0-450) /uL Baso # (Auto) 0 (0-100) /uL D-Dimer < 200 (<230) ng/mL Sodium 140 (137-145) mmol/L Potassium 4.3 (3.4-5.1) mmol/L Chloride 105 (98-107) mmol/L Carbon Dioxide 23 (22-32) mmol/L BUN 22 H (9-20) mg/dL Creatinine 0.80 (0.66-1.25) mg/dL Estimated GFR > 60.0 (>60) mL/min BUN/Creatinine Ratio 27.5 H (6-22) Glucose 99 (70-100) mg/dL Calcium 10.0 (8.4-10.2) mg/dL Troponin I < 0.012 (0.01-0.034) ng/mL B-Natriuretic Peptide < 100 (<100) Procalcitonin (<0.5) ng/mL 10/10/18 Range/Units 09:10 WBC (4.5-11.0) X10^3/uL RBC (4.5-5.9) X10^6/uL Hgb (13.5-17.5) g/dL Hct (41-53) % MCV (80-100) fL MCH (26-34) PG MCHC (30-36) % RDW (11.6-14.8) % Plt Count (150-400) X10^3/uL Neut % (Auto) (50-75) % Lymph % (Auto) (25-40) % [place] % (Auto) (3-14) % Eos % (Auto) (2-4) % Baso % (Auto) (0-2) % Neut # (Auto) (9090-6471) /uL Lymph # (Auto) (8222-7862) /uL [place] # (Auto) (0-900) /uL Eos # (Auto) (0-450) /uL Baso # (Auto) (0-100) /uL D-Dimer (<230) ng/mL Sodium (137-145) mmol/L Potassium (3.4-5.1) mmol/L Chloride (98-107) mmol/L Carbon Dioxide (22-32) mmol/L BUN (9-20) mg/dL Creatinine (0.66-1.25) mg/dL Estimated GFR (>60) mL/min BUN/Creatinine Ratio (6-22) Glucose (70-100) mg/dL Calcium (8.4-10.2) mg/dL Troponin I (0.01-0.034) ng/mL B-Natriuretic Peptide (<100) Procalcitonin < 0.05 (<0.5) ng/mL Imaging Data Chest x-ray: Radiologist's impression: PROCEDURE: XR CHEST 1V INDICATIONS: chest pain TECHNIQUE: One view of the chest was acquired. COMPARISON: None. FINDINGS: Surgical changes and devices: None. Lungs and pleura: Lungs are clear. No pleural effusions or pneumothorax. Mediastinum: Mediastinal contours appear normal. Heart size is normal. Bones and chest wall: No suspicious bony lesions. Overlying soft tissues appear unremarkable. IMPRESSION: No acute disease Dictated by: Juan Gay M.D. on 10/10/2018 at 9:43 Approved by: Juan Gay M.D. on 10/10/2018 at 9:44 ECG Data Attestation: I personally reviewed and interpreted this ECG as follows: Prior ECG tracings: not available for review Interpretation: Presentation EKG time 0906 Sinus bradycardia Ventricular rate of 46 Normal QRS Normal QTC Repeat EKG time 0937 Patient with improved symptoms Sinus rhythm Ventricular rate 83 Normal QRS Improvement of the ST depressions in V4 V5 V6 Inverted T-waves in [address] elevations Early repolarization MDM Narrative Medical decision making narrative: Patient's EKG is unremarkable, chest x-ray is unremarkable, D-dimer is negative, negative perc score, heart score 0, low suspicion for ACS, pneumonia, pulmonary embolism, pericarditis. Patient states that he does have some sinus congestion. His symptoms could be the result of a respiratory infection. Was sent home with Claritin and albuterol inhaler. Informed him he needed to contact his primary care doctor for continued evaluation. He was given return precautions. He expressed understanding and agreement plan. Discharge Plan Departure Patient Disposition: Home Clinical Impression: Breath, shortness Instructions: DI for Shortness of Breath Activity Restrictions/Additional Instructions: I do recommend you take the medications you were given a prescription for today as directed. Contact your primary care doctor for a follow-up. Return to the emergency department for any new or worsening symptoms Prescriptions: New albuterol sulfate 90 mcg/actuation HFA aerosol inhaler 2 puff INHALATION Q4-6H PRN (Reason: shortness of breath or wheezing) Qty: 18 RF: 0 loratadine [Claritin] 10 mg tablet 10 mg PO DAILY Qty: 30 RF: 0
[2018-10-10 08:52] VITALS: BP 117/76; PULSE 60; RESP 16; TEMP 36.4; O2SAT 97; BMI 25.0
[2018-10-10 09:20] LABS: Add Manual Diff / Slide Review NO; Basophils Absolute Auto 0 /uL (0-100); Basophils Percent Auto 0.5 % (0-2); Eosinophils Absolute Auto 200 /uL (0-450); Eosinophils Percent Auto 2.8 % (2-4); Hematocrit 43.2 % (41-53); Lymphocytes Absolute Auto 1200 /uL (1100-4500); Lymphocytes Percent Auto 22.8 % (25-40); Mean Corpuscular HGB Conc 34.8 % (30-36); Mean Corpuscular Hemoglobin 29.7 PG (26-34); Mean Corpuscular Volume 85.4 fL (80-100); Monocytes Absolute Auto 500 /uL (0-900); Monocytes Percent Auto 8.9 % (3-14); Neutrophils Absolute Auto 3500 /uL (1500-7000); Platelet Count 271 X10^3/uL (150-400); Red Blood Cell Count 5.05 X10^6/uL (4.5-5.9); Red Cell Distribution Width 13.7 % (11.6-14.8); White Blood Cell Count 5.4 X10^3/uL (4.5-11.0)
[2018-10-10 09:39] LABS: BUN Creatinine Ratio 27.5 (6-22); Blood Urea Nitrogen 22 mg/dL (9-20); Carbon Dioxide 23 mmol/L (22-32); Chloride 105 mmol/L (98-107); Estimated Glomerular Filt Rate > 60.0 mL/min (>60); Glucose 99 mg/dL (70-100); HEMOLYSIS 21 (0-50); Potassium 4.3 mmol/L (3.4-5.1); Sodium 140 mmol/L (137-145)
[2018-10-10 09:40] LABS: D Dimer < 200 ng/mL (<230)
[2018-10-10 09:51] LABS: Troponin I < 0.012 ng/mL (0.01-0.034)
[2018-10-10 09:55] LABS: Procalcitonin < 0.05 ng/mL (<0.5)
[2018-10-10 10:00] VITALS: BP 111/69; PULSE 55; RESP 20; O2SAT 98
[2018-10-10 10:06] LABS: B Type Natriuretic Peptide < 100 (<100)
== END 2018-10-10 10:52 | disposition home or self-care (01) ==
PROVIDERS: Emergency Provider Emergency Medicine; PCP Student in an Organized Health Care Education/Training Program
DX: R06.03 Acute respiratory distress (principal)
CPT/HCPCS: 36591; 71045; 80048; 83880; 84145; 84484; 85025; 85379; 93005; 99282; 99285

== ENCOUNTER 2018-10-30 16:42 | Emergency (ER) | payer OTHER, SELFPAY ==
[2018-10-30 16:48] VITALS: BP 143/90; PULSE 106; RESP 20; TEMP 36.7; O2SAT 99; BMI 25.0
--- NOTE | 2018-10-30 17:05 | ED.URI ---
HPI - URI/Sore Throat <OLIVER Freeman - Last Filed: 10/30/18 21:37> General Chief Complaint: Upper Respiratory Symptoms Stated Complaint: coughing up blood, post surgery Time Seen by Provider: 10/30/18 16:43 Source: patient Mode of arrival: ambulatory Limitations: no limitations History of Present Illness HPI Narrative: 28-year-old healthy male that is a nonsmoker here for complaint of coughing up blood tinged sputum for the last couple of days. He denies any trauma. He denies any fevers. 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 He denies any signs of infection to the incision site in his abdomen area. He is tolerating p.o. intake with no nausea or vomiting. No shortness of breath no chest pain. No other concerns or complaints at this timeframe. Related Data Previous Rx's Medication Instructions Recorded albuterol sulfate 2 puff INHALATION Q4-6H PRN #18 10/10/18 gram loratadine [Claritin] 10 mg PO DAILY #30 tab 10/10/18 levofloxacin [Levaquin] 750 mg PO DAILY #6 tab 10/30/18 Allergies Allergy/AdvReac Type Severity Reaction Status Date / Time No Known Drug Allergies Allergy Verified 10/30/18 16:53 Review of Systems <OLIVER Freeman - Last Filed: 10/30/18 21:37> Constitutional Denies chills, Denies fever(s), Denies lethargy and Denies weakness Eyes Denies change in vision, Denies eye discharge, Denies irritation and Denies loss of vision ENT Ears, Nose, Mouth, and Throat: Denies change in voice, Denies neck pain, Denies sore throat and Denies throat swelling Cardiovascular Denies chest pain, Denies irregular heart rhythm, Denies lightheadedness, Denies palpitations and Denies orthopnea Respiratory Reports cough and Denies wheezing Gastrointestinal Gastrointestinal: Denies abdominal pain, Denies change in bowel habits, Denies diarrhea, Denies nausea and Denies vomiting Genitourinary Denies hematuria, Denies flank pain, Denies urinary incontinence and Denies urinary urgency Musculoskeletal Denies neck pain Integumentary/Breasts Denies pruritus, Denies erythema, Denies rash and Denies wounds Neurologic Denies loss of vision and Denies weakness Endocrine Denies palpitations Hematologic/Lymphatic Denies easy bruising Allergic/Immunologic Denies urticaria, Denies throat swelling and Denies wheezing PFSH <OLIVER Freeman - Last Filed: 10/30/18 21:37> Medical History Healthy adult (Acute) Surgical History No pertinent past surgical history (Acute) Social History Smoking Status: Never smoker Social History Smoking Status: Never smoker Exam <OLIVER Freeman - Last Filed: 10/30/18 21:37> Initial Vital Signs Initial Vital Signs: Vital Signs Temperature 98.1 F 10/30/18 16:48 Pulse Rate 106 H 10/30/18 16:48 Respiratory Rate 20 10/30/18 16:48 Blood Pressure 143/90 H 10/30/18 16:48 Pulse Oximetry 99 10/30/18 16:48 Const General: cooperative and well developed Nutritional Appearance: well nourished Orientation: alert, awake, oriented x3 and not confused HENOR Mouth: oral mucosae normal and moist mucous membranes Eyes Eyelids: eyelids normal Conjunctivae: conjunctivae normal Sclera: sclerae normal Pupils: PERRL EOM: EOM intact bilaterally Resp Effort & Inspection: normal respiratory effort, able to speak in complete sentences, no respiratory distress and no use of accessory muscles Auscultation: clear to auscultation bilaterally, no rales, no rhonchi and no wheezes Cardio Rate: regular rate Rhythm: regular rhythm Heart Sounds: no click, no gallops, no murmurs and no rubs Skin General: no rashes or lesions noted, No jaundice and No petechiae Neuro General: alert, oriented x3, gait normal and no focal motor deficits Speech: speech normal <Alfa Crow DO - Last Filed: 10/30/18 21:59> Initial Vital Signs Initial Vital Signs: Vital Signs Temperature 98.1 F 10/30/18 16:48 Pulse Rate 106 H 10/30/18 16:48 Respiratory Rate 20 10/30/18 16:48 Blood Pressure 143/90 H 10/30/18 16:48 Pulse Oximetry 99 10/30/18 16:48 Course <OLIVER Freeman - Last Filed: 10/30/18 21:37> Orders Ordered: ED Orders 10/30/18 17:21 CT angio chest PE protocol Stat 10/30/18 17:30 Complete Blood Count AUTO DIFF Stat Comprehensive Metabolic Panel Stat Prothrombin Time INR Stat Discontinued Medications Levofloxacin (Levaquin) 750 mg PO NOW ONE Stop: 10/30/18 19:19 Last Admin: 10/30/18 19:33 Dose: 750 mg Vital Signs - 8 hr 10/30/18 16:48 10/30/18 19:39 Temperature 98.1 F Pulse Rate 106 H 69 Respiratory Rate 20 20 Blood Pressure 143/90 H 146/91 H Pulse Oximetry 99 97 <Alfa Crow DO - Last Filed: 10/30/18 21:59> Orders Ordered: ED Orders 10/30/18 17:21 CT angio chest PE protocol Stat 10/30/18 17:30 Complete Blood Count AUTO DIFF Stat Comprehensive Metabolic Panel Stat Prothrombin Time INR Stat Discontinued Medications Levofloxacin (Levaquin) 750 mg PO NOW ONE Stop: 10/30/18 19:19 Last Admin: 10/30/18 19:33 Dose: 750 mg Vital Signs - 8 hr 10/30/18 16:48 10/30/18 19:39 Temperature 98.1 F Pulse Rate 106 H 69 Respiratory Rate 20 20 Blood Pressure 143/90 H 146/91 H Pulse Oximetry 99 97 MDM - URI/Sore Throat <OLIVER Freeman - Last Filed: 10/30/18 21:37> Lab Data Result diagrams: 10/30/18 17:30 10/30/18 17:30 Lab Results 10/30/18 10/30/18 10/30/18 Range/Units 17:30 17:30 17:30 WBC 7.2 (4.5-11.0) X10^3/uL RBC 4.40 L (4.5-5.9) X10^6/uL Hgb 12.8 L (13.5-17.5) g/dL Hct 38.1 L (41-53) % MCV 86.5 (80-100) fL MCH 29.1 (26-34) PG MCHC 33.7 (30-36) % RDW 13.2 (11.6-14.8) % Plt Count 251 (150-400) X10^3/uL Neut % (Auto) 66.3 (50-75) % Lymph % (Auto) 23.5 L (25-40) % [place] % (Auto) 8.2 (3-14) % Eos % (Auto) 1.6 L (2-4) % Baso % (Auto) 0.4 (0-2) % Neut # (Auto) 4800 (5547-4339) /uL Lymph # (Auto) 1700 (0796-7384) /uL [place] # (Auto) 600 (0-900) /uL Eos # (Auto) 100 (0-450) /uL Baso # (Auto) 0 (0-100) /uL PT 11.9 (10.1-12.7) SECONDS INR 1.0 (0.9-1.3) Sodium 138 (137-145) mmol/L Potassium 3.4 (3.4-5.1) mmol/L Chloride 101 (98-107) mmol/L Carbon Dioxide 29 (22-32) mmol/L BUN 13 (9-20) mg/dL Creatinine 0.70 (0.66-1.25) mg/dL Estimated GFR > 60.0 (>60) mL/min BUN/Creatinine Ratio 18.6 (6-22) Glucose 115 H (70-100) mg/dL Calcium 9.0 (8.4-10.2) mg/dL Total Bilirubin 0.5 (0.2-1.3) mg/dL AST 95 H (17-59) IU/L ALT 181 H (21-72) IU/L Alkaline Phosphatase 80 (38-126) U/L Total Protein 7.3 (6.3-8.2) g/dL Albumin 4.1 (3.5-5.0) g/dL Globulin 3.2 (1.7-4.1) g/dL Albumin/Globulin Ratio 1.3 (1.0-2.8) Imaging Data CT scan - chest: Radiologist's impression: [address] [address] [address] Scan Report Signed Patient: Oziel Houston [facility]#: [id number] : 1990Acct:[id number] Age/Sex: 28 / MDate of Service: 10/30/18 Loc: ED Accession Number: [id number] Procedure: CT angio chest PE protocol Ordering Provider: Wilbert Lynne PROCEDURE: CT ANGIO CHEST PE PROTOCOL INDICATIONS: Hemoptysis recent surgery TECHNIQUE: After the administration of intravenous contrast, 2 mm thick sections acquired from the pulmonary apices to the posterior costophrenic angles. 3-dimensional maximum intensity projection (MIP) coronal and sagittal reformats were then acquired through the thorax. For radiation dose reduction, the following was used: automated exposure control, adjustment of mA and/or kV according to patient size. COMPARISON: [facility], CR, XR CHEST 1V, 10/10/2018, 9:31. FINDINGS: Image quality: Excellent. Pulmonary arteries: Pulmonary arteries are normal in size, and demonstrate no intraluminal filling defects to suggest central pulmonary embolism. Lungs and pleura: There is a minimal appearance of patchy opacities within the right middle and lower lobe. No effusion. Mediastinum: Heart size is normal, without pericardial effusion. No mediastinal or hilar adenopathy. Thoracic aorta is normal in caliber and enhancement. Esophagus is normal in caliber, without hiatal hernia. Bones and chest wall: No suspicious bony lesions. Ribs and thoracic spine appear intact throughout. Thyroid gland is unremarkable. No axillary or supraclavicular adenopathy. Abdomen: Visualized upper abdominal solid organs appear normal in the early arterial phase of enhancement. IMPRESSION: 1. No pulmonary embolism. 2. Small areas of patchy opacity within the right middle and lower lobes suggestive of infection such as pneumonia. Atypical etiologies such as fungal or mycobacterial should be considered if appropriate. Recommend interval followup after appropriate therapy to document resolution and exclude presence of underlying noninfectious/non-inflammatory potentially neoplastic mass. Dictated by: Henny Eaton M.D. on 10/30/2018 at 18:57 Approved by: Henny Eaton M.D. on 10/30/2018 at 18:59 MDM Narrative Medical decision making narrative: CBC was obtained and shows mild anemia most likely secondary to surgery. White count was unremarkable at 7.2. Otherwise CBC is unremarkable. Chemistry panel was obtained was unremarkable. CT of the chest was obtained and was negative for PE however does show some a a pace occasion to the right middle and lower lobe suspicious for pneumonia. He is placed on Levaquin. follow up with primary care provider later this week for re-evaluation. Plenty of fluids and rest. For any worsening symptoms return to the emergency room. <Alfa Crow DO - Last Filed: 10/30/18 21:59> Lab Data Lab Results 10/30/18 10/30/18 10/30/18 Range/Units 17:30 17:30 17:30 WBC 7.2 (4.5-11.0) X10^3/uL RBC 4.40 L (4.5-5.9) X10^6/uL Hgb 12.8 L (13.5-17.5) g/dL Hct 38.1 L (41-53) % MCV 86.5 (80-100) fL MCH 29.1 (26-34) PG MCHC 33.7 (30-36) % RDW 13.2 (11.6-14.8) % Plt Count 251 (150-400) X10^3/uL Neut % (Auto) 66.3 (50-75) % Lymph % (Auto) 23.5 L (25-40) % [place] % (Auto) 8.2 (3-14) % Eos % (Auto) 1.6 L (2-4) % Baso % (Auto) 0.4 (0-2) % Neut # (Auto) 4800 (7647-2849) /uL Lymph # (Auto) 1700 (2085-7119) /uL [place] # (Auto) 600 (0-900) /uL Eos # (Auto) 100 (0-450) /uL Baso # (Auto) 0 (0-100) /uL PT 11.9 (10.1-12.7) SECONDS INR 1.0 (0.9-1.3) Sodium 138 (137-145) mmol/L Potassium 3.4 (3.4-5.1) mmol/L Chloride 101 (98-107) mmol/L Carbon Dioxide 29 (22-32) mmol/L BUN 13 (9-20) mg/dL Creatinine 0.70 (0.66-1.25) mg/dL Estimated GFR > 60.0 (>60) mL/min BUN/Creatinine Ratio 18.6 (6-22) Glucose 115 H (70-100) mg/dL Calcium 9.0 (8.4-10.2) mg/dL Total Bilirubin 0.5 (0.2-1.3) mg/dL AST 95 H (17-59) IU/L ALT 181 H (21-72) IU/L Alkaline Phosphatase 80 (38-126) U/L Total Protein 7.3 (6.3-8.2) g/dL Albumin 4.1 (3.5-5.0) g/dL Globulin 3.2 (1.7-4.1) g/dL Albumin/Globulin Ratio 1.3 (1.0-2.8) Discharge Plan Departure Patient Disposition: Home Clinical Impression: Community acquired pneumonia Qualifiers: Laterality: right Lung location: unspecified part of lung Qualified Code(s): J18.9 - Pneumonia, unspecified organism Discharge Date/Time: 10/30/18 19:39 Interventions: ED Discharge Assessment Last Done: 10/30/18 19:39 Instructions: DI for Pneumonia -- Adult Activity Restrictions/Additional Instructions: laboratory results show mild anemia most likely secondary to the surgery otherwise laboratory results were unremarkable. CT of the chest was negative for any blood clots in the lungs over does show findings that her suspicious for pneumonia. Urine placed on an antibiotic called Levaquin use as directed. Plenty of fluids and rest. Follow up with her primary care provider later this week for re-evaluation. For any worsening symptoms return to the emergency room. Prescriptions: New levofloxacin [Levaquin] 750 mg tablet 750 mg PO DAILY Qty: 6 RF: 0 No Action albuterol sulfate 90 mcg/actuation HFA aerosol inhaler 2 puff INHALATION Q4-6H PRN (Reason: shortness of breath or wheezing) Qty: 18 RF: 0 loratadine [Claritin] 10 mg tablet 10 mg PO DAILY Qty: 30 RF: 0 Referrals: Maribell Francisco [Primary Care Provider] - <Alfa Crow DO - Last Filed: 10/30/18 21:59> Cosign ED Attending Lucasature Attestation: I was immediately available in the department for consultation. Documentation has been reviewed. I agree with assessment and plan.
--- NOTE | 2018-10-30 17:11 | ED_ITS ---
HPI - URI/Sore Throat <OLIVER Freeman - Last Filed: 10/30/18 21:37> General Chief Complaint: Upper Respiratory Symptoms Stated Complaint: coughing up blood, post surgery Time Seen by Provider: 10/30/18 16:43 Source: patient Mode of arrival: ambulatory Limitations: no limitations History of Present Illness HPI Narrative: 28-year-old healthy male that is a nonsmoker here for complaint of coughing up blood tinged sputum for the last couple of days. He denies any trauma. He denies any fevers. 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 He denies any signs of infection to the incision site in his abdomen area. He is tolerating p.o. intake with no nausea or vomiting. No shortness of breath no chest pain. No other concerns or complaints at this timeframe. Related Data Previous Rx's Medication Instructions Recorded albuterol sulfate 2 puff INHALATION Q4-6H PRN #18 10/10/18 gram loratadine [Claritin] 10 mg PO DAILY #30 tab 10/10/18 levofloxacin [Levaquin] 750 mg PO DAILY #6 tab 10/30/18 Allergies Allergy/AdvReac Type Severity Reaction Status Date / Time No Known Drug Allergies Allergy Verified 10/30/18 16:53 Review of Systems <OLIVER Freeman - Last Filed: 10/30/18 21:37> Constitutional Denies chills, Denies fever(s), Denies lethargy and Denies weakness Eyes Denies change in vision, Denies eye discharge, Denies irritation and Denies loss of vision ENT Ears, Nose, Mouth, and Throat: Denies change in voice, Denies neck pain, Denies sore throat and Denies throat swelling Cardiovascular Denies chest pain, Denies irregular heart rhythm, Denies lightheadedness, Denies palpitations and Denies orthopnea Respiratory Reports cough and Denies wheezing Gastrointestinal Gastrointestinal: Denies abdominal pain, Denies change in bowel habits, Denies diarrhea, Denies nausea and Denies vomiting Genitourinary Denies hematuria, Denies flank pain, Denies urinary incontinence and Denies urinary urgency Musculoskeletal Denies neck pain Integumentary/Breasts Denies pruritus, Denies erythema, Denies rash and Denies wounds Neurologic Denies loss of vision and Denies weakness Endocrine Denies palpitations Hematologic/Lymphatic Denies easy bruising Allergic/Immunologic Denies urticaria, Denies throat swelling and Denies wheezing PFSH <OLIVER Freeman - Last Filed: 10/30/18 21:37> Medical History Healthy adult (Acute) Surgical History No pertinent past surgical history (Acute) Social History Smoking Status: Never smoker Social History Smoking Status: Never smoker Exam <OLIVER Freeman - Last Filed: 10/30/18 21:37> Initial Vital Signs Initial Vital Signs: Vital Signs Temperature 98.1 F 10/30/18 16:48 Pulse Rate 106 H 10/30/18 16:48 Respiratory Rate 20 10/30/18 16:48 Blood Pressure 143/90 H 10/30/18 16:48 Pulse Oximetry 99 10/30/18 16:48 Const General: cooperative and well developed Nutritional Appearance: well nourished Orientation: alert, awake, oriented x3 and not confused HENVT Mouth: oral mucosae normal and moist mucous membranes Eyes Eyelids: eyelids normal Conjunctivae: conjunctivae normal Sclera: sclerae normal Pupils: PERRL EOM: EOM intact bilaterally Resp Effort & Inspection: normal respiratory effort, able to speak in complete sentences, no respiratory distress and no use of accessory muscles Auscultation: clear to auscultation bilaterally, no rales, no rhonchi and no wheezes Cardio Rate: regular rate Rhythm: regular rhythm Heart Sounds: no click, no gallops, no murmurs and no rubs Skin General: no rashes or lesions noted, No jaundice and No petechiae Neuro General: alert, oriented x3, gait normal and no focal motor deficits Speech: speech normal <Alfa Crow DO - Last Filed: 10/30/18 21:59> Initial Vital Signs Initial Vital Signs: Vital Signs Temperature 98.1 F 10/30/18 16:48 Pulse Rate 106 H 10/30/18 16:48 Respiratory Rate 20 10/30/18 16:48 Blood Pressure 143/90 H 10/30/18 16:48 Pulse Oximetry 99 10/30/18 16:48 Course <OLIVER Freeman - Last Filed: 10/30/18 21:37> Orders Ordered: ED Orders 10/30/18 17:21 CT angio chest PE protocol Stat 10/30/18 17:30 Complete Blood Count AUTO DIFF Stat Comprehensive Metabolic Panel Stat Prothrombin Time INR Stat Discontinued Medications Levofloxacin (Levaquin) 750 mg PO NOW ONE Stop: 10/30/18 19:19 Last Admin: 10/30/18 19:33 Dose: 750 mg Vital Signs - 8 hr 10/30/18 16:48 10/30/18 19:39 Temperature 98.1 F Pulse Rate 106 H 69 Respiratory Rate 20 20 Blood Pressure 143/90 H 146/91 H Pulse Oximetry 99 97 <Alfa Crow DO - Last Filed: 10/30/18 21:59> Orders Ordered: ED Orders 10/30/18 17:21 CT angio chest PE protocol Stat 10/30/18 17:30 Complete Blood Count AUTO DIFF Stat Comprehensive Metabolic Panel Stat Prothrombin Time INR Stat Discontinued Medications Levofloxacin (Levaquin) 750 mg PO NOW ONE Stop: 10/30/18 19:19 Last Admin: 10/30/18 19:33 Dose: 750 mg Vital Signs - 8 hr 10/30/18 16:48 10/30/18 19:39 Temperature 98.1 F Pulse Rate 106 H 69 Respiratory Rate 20 20 Blood Pressure 143/90 H 146/91 H Pulse Oximetry 99 97 MDM - URI/Sore Throat <OLIVER Freeman - Last Filed: 10/30/18 21:37> Lab Data Result diagrams: 10/30/18 17:30 10/30/18 17:30 Lab Results 10/30/18 10/30/18 10/30/18 Range/Units 17:30 17:30 17:30 WBC 7.2 (4.5-11.0) X10^3/uL RBC 4.40 L (4.5-5.9) X10^6/uL Hgb 12.8 L (13.5-17.5) g/dL Hct 38.1 L (41-53) % MCV 86.5 (80-100) fL MCH 29.1 (26-34) PG MCHC 33.7 (30-36) % RDW 13.2 (11.6-14.8) % Plt Count 251 (150-400) X10^3/uL Neut % (Auto) 66.3 (50-75) % Lymph % (Auto) 23.5 L (25-40) % [place] % (Auto) 8.2 (3-14) % Eos % (Auto) 1.6 L (2-4) % Baso % (Auto) 0.4 (0-2) % Neut # (Auto) 4800 (5531-0818) /uL Lymph # (Auto) 1700 (9462-5736) /uL [place] # (Auto) 600 (0-900) /uL Eos # (Auto) 100 (0-450) /uL Baso # (Auto) 0 (0-100) /uL PT 11.9 (10.1-12.7) SECONDS INR 1.0 (0.9-1.3) Sodium 138 (137-145) mmol/L Potassium 3.4 (3.4-5.1) mmol/L Chloride 101 (98-107) mmol/L Carbon Dioxide 29 (22-32) mmol/L BUN 13 (9-20) mg/dL Creatinine 0.70 (0.66-1.25) mg/dL Estimated GFR > 60.0 (>60) mL/min BUN/Creatinine Ratio 18.6 (6-22) Glucose 115 H (70-100) mg/dL Calcium 9.0 (8.4-10.2) mg/dL Total Bilirubin 0.5 (0.2-1.3) mg/dL AST 95 H (17-59) IU/L ALT 181 H (21-72) IU/L Alkaline Phosphatase 80 (38-126) U/L Total Protein 7.3 (6.3-8.2) g/dL Albumin 4.1 (3.5-5.0) g/dL Globulin 3.2 (1.7-4.1) g/dL Albumin/Globulin Ratio 1.3 (1.0-2.8) Imaging Data CT scan - chest: Radiologist's impression: [address] [address] [address] Scan Report Signed Patient: Oziel Houston [facility]#: [id number] : 1990Acct:[id number] Age/Sex: 28 / MDate of Service: 10/30/18 Loc: ED Accession Number: [id number] Procedure: CT angio chest PE protocol Ordering Provider: Wilbert Lynne PROCEDURE: CT ANGIO CHEST PE PROTOCOL INDICATIONS: Hemoptysis recent surgery TECHNIQUE: After the administration of intravenous contrast, 2 mm thick sections acquired from the pulmonary apices to the posterior costophrenic angles. 3-dimensional maximum intensity projection (MIP) coronal and sagittal reformats were then acquired through the thorax. For radiation dose reduction, the following was used: automated exposure con trol, adjustment of mA and/or kV according to patient size. COMPARISON: [facility], CR, XR CHEST 1V, 10/10/2018, 9:31. FINDINGS: Image quality: Excellent. Pulmonary arteries: Pulmonary arteries are normal in size, and demonstrate no intraluminal filling defects to suggest central pulmonary embolism. Lungs and pleura: There is a minimal appearance of patchy opacities within the right middle and lower lobe. No effusion. Mediastinum: Heart size is normal, without pericardial effusion. No mediastinal or hilar adenopathy. Thoracic aorta is normal in caliber and enhancement. Esophagus is normal in caliber, without hiatal hernia. Bones and chest wall: No suspicious bony lesions. Ribs and thoracic spine appear intact throughout. Thyroid gland is unremarkable. No axillary or supraclavicular adenopathy. Abdomen: Visualized upper abdominal solid organs appear normal in the early arterial phase of enhancement. IMPRESSION: 1. No pulmonary embolism. 2. Small areas of patchy opacity within the right middle and lower lobes suggestive of infection such as pneumonia. Atypical etiologies such as fungal or mycobacterial should be considered if appropriate. Recommend interval followup after appropriate therapy to document resolution and exclude presence of underlying noninfectious/non- inflammatory potentially neoplastic mass. Dictated by: Henyn Eaton M.D. on 10/30/2018 at 18:57 Approved by: Henny Eaton M.D. on 10/30/2018 at 18:59 MDM Narrative Medical decision making narrative: CBC was obtained and shows mild anemia most likely secondary to surgery. White count was unremarkable at 7.2. Otherwise CBC is unremarkable. Chemistry panel was obtained was unremarkable. CT of the chest was obtained and was negative for PE however does show some a a pace occasion to the right middle and lower lobe suspicious for pneumonia. He is placed on Levaquin. follow up with primary care provider later this week for re-evaluation. Plenty of fluids and rest. For any worsening symptoms return to the emergency room. <Alfa Crow DO - Last Filed: 10/30/18 21:59> Lab Data Lab Results 10/30/18 10/30/18 10/30/18 Range/Units 17:30 17:30 17:30 WBC 7.2 (4.5-11.0) X10^3/uL RBC 4.40 L (4.5-5.9) X10^6/uL Hgb 12.8 L (13.5-17.5) g/dL Hct 38.1 L (41-53) % MCV 86.5 (80-100) fL MCH 29.1 (26-34) PG MCHC 33.7 (30-36) % RDW 13.2 (11.6-14.8) % Plt Count 251 (150-400) X10^3/uL Neut % (Auto) 66.3 (50-75) % Lymph % (Auto) 23.5 L (25-40) % [place] % (Auto) 8.2 (3-14) % Eos % (Auto) 1.6 L (2-4) % Baso % (Auto) 0.4 (0-2) % Neut # (Auto) 4800 (8758-2908) /uL Lymph # (Auto) 1700 (3975-9056) /uL [place] # (Auto) 600 (0-900) /uL Eos # (Auto) 100 (0-450) /uL Baso # (Auto) 0 (0-100) /uL PT 11.9 (10.1-12.7) SECONDS INR 1.0 (0.9-1.3) Sodium 138 (137-145) mmol/L Potassium 3.4 (3.4-5.1) mmol/L Chloride 101 (98-107) mmol/L Carbon Dioxide 29 (22-32) mmol/L BUN 13 (9-20) mg/dL Creatinine 0.70 (0.66-1.25) mg/dL Estimated GFR > 60.0 (>60) mL/min BUN/Creatinine Ratio 18.6 (6-22) Glucose 115 H (70-100) mg/dL Calcium 9.0 (8.4-10.2) mg/dL Total Bilirubin 0.5 (0.2-1.3) mg/dL AST 95 H (17-59) IU/L ALT 181 H (21-72) IU/L Alkaline Phosphatase 80 (38-126) U/L Total Protein 7.3 (6.3-8.2) g/dL Albumin 4.1 (3.5-5.0) g/dL Globulin 3.2 (1.7-4.1) g/dL Albumin/Globulin Ratio 1.3 (1.0-2.8) Discharge Plan Departure Patient Disposition: Home Clinical Impression: Community acquired pneumonia Qualifiers: Laterality: right Lung location: unspecified part of lung Qualified Code(s): J18.9 - Pneumonia, unspecified organism Discharge Date/Time: 10/30/18 19:39 Interventions: ED Discharge Assessment Last Done: 10/30/18 19:39 Instructions: DI for Pneumonia -- Adult Activity Restrictions/Additional Instructions: laboratory results show mild anemia most likely secondary to the surgery otherwise laboratory results were unremarkable. CT of the chest was negative for any blood clots in the lungs over does show findings that her suspicious for pneumonia. Urine placed on an antibiotic called Levaquin use as directed. Plenty of fluids and rest. Follow up with her primary care provider later this week for re-evaluation. For any worsening symptoms return to the emergency room. Prescriptions: New levofloxacin [Levaquin] 750 mg tablet 750 mg PO DAILY Qty: 6 RF: 0 No Action albuterol sulfate 90 mcg/actuation HFA aerosol inhaler 2 puff INHALATION Q4-6H PRN (Reason: shortness of breath or wheezing) Qty: 18 RF: 0 loratadine [Claritin] 10 mg tablet 10 mg PO DAILY Qty: 30 RF: 0 Referrals: Maribell Francisco [Primary Care Provider] - <Alfa Crow DO - Last Filed: 10/30/18 21:59> Cosign ED Attending Cosignature Attestation: I was immediately available in the department for consultation. Documentation has been reviewed. I agree with assessment and plan.
--- NOTE | 2018-10-30 17:21 | DI.CT.S_ITS ---
PROCEDURE: CT ANGIO CHEST PE PROTOCOL INDICATIONS: Hemoptysis recent surgery TECHNIQUE: After the administration of intravenous contrast, 2 mm thick sections acquired from the pulmonary apices to the posterior costophrenic angles. 3-dimensional maximum intensity projection (MIP) coronal and sagittal reformats were then acquired through the thorax. For radiation dose reduction, the following was used: automated exposure control, adjustment of mA and/or kV according to patient size. COMPARISON: [facility], CR, XR CHEST 1V, 10/10/2018, 9:31. FINDINGS: Image quality: Excellent. Pulmonary arteries: Pulmonary arteries are normal in size, and demonstrate no intraluminal filling defects to suggest central pulmonary embolism. Lungs and pleura: There is a minimal appearance of patchy opacities within the right middle and lower lobe. No effusion. Mediastinum: Heart size is normal, without pericardial effusion. No mediastinal or hilar adenopathy. Thoracic aorta is normal in caliber and enhancement. Esophagus is normal in caliber, without hiatal hernia. Bones and chest wall: No suspicious bony lesions. Ribs and thoracic spine appear intact throughout. Thyroid gland is unremarkable. No axillary or supraclavicular adenopathy. Abdomen: Visualized upper abdominal solid organs appear normal in the early arterial phase of enhancement. IMPRESSION: 1. No pulmonary embolism. 2. Small areas of patchy opacity within the right middle and lower lobes suggestive of infection such as pneumonia. Atypical etiologies such as fungal or mycobacterial should be considered if appropriate. Recommend interval followup after appropriate therapy to document resolution and exclude presence of underlying noninfectious/non-inflammatory potentially neoplastic mass. Dictated by: Henny Eaton M.D. on 10/30/2018 at 18:57 Approved by: Henny Eaton M.D. on 10/30/2018 at 18:59
[2018-10-30 17:39] LABS: Add Manual Diff / Slide Review NO; Basophils Absolute Auto 0 /uL (0-100); Basophils Percent Auto 0.4 % (0-2); Eosinophils Absolute Auto 100 /uL (0-450); Eosinophils Percent Auto 1.6 % (2-4); Hematocrit 38.1 % (41-53); Hemoglobin 12.8 g/dL (13.5-17.5); Lymphocytes Absolute Auto 1700 /uL (1100-4500); Lymphocytes Percent Auto 23.5 % (25-40); Mean Corpuscular HGB Conc 33.7 % (30-36); Mean Corpuscular Hemoglobin 29.1 PG (26-34); Mean Corpuscular Volume 86.5 fL (80-100); Monocytes Absolute Auto 600 /uL (0-900); Monocytes Percent Auto 8.2 % (3-14); Neutrophils Absolute Auto 4800 /uL (1500-7000); Neutrophils Percent Auto 66.3 % (50-75); Platelet Count 251 X10^3/uL (150-400); Red Cell Distribution Width 13.2 % (11.6-14.8); White Blood Cell Count 7.2 X10^3/uL (4.5-11.0)
[2018-10-30 17:44] LABS: Prothrombin Time 11.9 SECONDS (10.1-12.7)
[2018-10-30 17:49] LABS: Alanine Aminotransferase 181 IU/L (21-72); Albumin 4.1 g/dL (3.5-5.0); Albumin Globulin Ratio 1.3 (1.0-2.8); Alkaline Phosphatase 80 U/L (38-126); Aspartate Aminotransferase 95 IU/L (17-59); BUN Creatinine Ratio 18.6 (6-22); Bilirubin Total 0.5 mg/dL (0.2-1.3); Blood Urea Nitrogen 13 mg/dL (9-20); Carbon Dioxide 29 mmol/L (22-32); Chloride 101 mmol/L (98-107); Estimated Glomerular Filt Rate > 60.0 mL/min (>60); Globulin 3.2 g/dL (1.7-4.1); Glucose 115 mg/dL (70-100); HEMOLYSIS < 15 (0-50); Potassium 3.4 mmol/L (3.4-5.1); Sodium 138 mmol/L (137-145); Total Protein 7.3 g/dL (6.3-8.2)
--- NOTE | 2018-10-30 18:36 | PC.NURSE ---
4 days postop ant approach lumbar retana c/o persistent back pain, incision site pain, abd inc dsg clean/dry/intact without erythema or drainage, denies fever/vomiting, c/o constipation x3 days, reports frequent use of oxycodone for pain
[2018-10-30] MEDS: levoFLOXacin 250 MG TABLET 750 MG PO (19:33)
[2018-10-30 19:39] VITALS: BP 146/91; PULSE 69; RESP 20; O2SAT 97
== END 2018-10-30 19:39 | disposition home or self-care (01) ==
PROVIDERS: Emergency Provider Nurse Practitioner Family; PCP Student in an Organized Health Care Education/Training Program
DX: J18.9 Pneumonia, unspecified organism (principal)
CPT/HCPCS: 36591; 71275; 80053; 85025; 85610; 99282; 99284; Q9967

== ENCOUNTER 2019-04-13 11:15 | Outpatient (RCR) | payer OTHER, SELFPAY ==
--- NOTE | 2019-02-06 18:51 | PT.OIE ---
Current Diagnoses Low back pain (02/06/19) Other specified postprocedural states (02/06/19) Past Medical History (Last Reviewed 10/30/18 @ 19:14 by OLIVER Freeman) Healthy adult (Acute) Past Surgical History (Last Reviewed 10/30/18 @ 19:14 by OLIVER Freeman) No pertinent past surgical history (Acute) Provider Visit Care Team Role Provider Type Maribell Francisco Attending Provider Non-Staff Other Providers Primary Care Provider Specialty: Medical Address: [address] [place] [address], [place], [address] Email: Physical Therapy Initial Evaluation PT-OP-A Visit Information Start: 02/06/19 08:09 Freq: Status: Active Protocol: Document 02/06/19 10:04 [facility] (Rec: 02/06/19 12:14 [facility] [id number]) Out-Patient Physical Therapy Visit Information Visit Information Visit Type Initial Evaluation Visit Start Time 10:30 Visit Stop Time 11:25 Total Visit Minutes 55 Visit Number 1/12 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 Pt reports sitting is significantly difficult now and leg pain is about 75% improved since surgery but back pain is still bad with movement. Pt saw MD about 1 week ago with limits of no bending, twisting or lifting. Pt is retiring in 60 days from [employer]. 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 History of injury: Pt reports he had an injury about 3 to 5 years ago when he was doing a 4 person lift for a 450 lb thing at work and then had to close the large lid and jumped off and noticed he tweaked his back> Reports when he got out the shower he felt like he couldn't walk and couldn't get up from floor. He rested in bed per MD recommendation for 3 days. [place] and came [place] and did PT but did not have relief with it. kept dx as mm spasm each time he went in and would give him mm relaxors . He had anohter injury where he was exercising recently and doing broad jumps and felt very uncomfortable in his back which inc his pain. 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 Pt does yoga and elliptical but is painful. He had an SUKHWINDER which gave him small bit of relief. Prior Treatments and Tests [place] therapist was making him do very painful activities & was not maintaining full focus on his case so he asked to go outside base; mult bouts of PT prior to surgery & injections Treatment Goals Patient/Caregiver Goals hiking longer distances (>1/4 mile) & uphill, be able to sit in class, be able to play with his kids PT-OP-C Subjective Start: 02/06/19 08:09 Freq: Status: Active Protocol: Document 02/06/19 10:04 [facility] (Rec: 02/06/19 18:51 [facility] [id number]) OP-PT Pain Assessment Location lumbar Pain Location Details L SI Intensity 6 Scale Used Numeric (1 - 10) Description Sharp Frequency Constant Pain Aggravating Factors ADL's Activity Bending Lifting Other Pain Aggravating Factors twisting, extended activity especailly up hill, twisting Pain Alleviating Factors Cold Medication Other Pain Alleviating Factors change position PT-OP-F Manual Assessment Start: 02/06/19 08:09 Freq: Status: Active Protocol: Document 02/06/19 10:04 [facility] (Rec: 02/06/19 18:51 [facility] [id number]) Manual Assessments Soft Tissue Assessment Soft Tissue Mobility Assessment Tightness B ES & QL, iliacus, piriformis Joint Mobility Assessment Joint Mobility Assessment Iliac crests equal in height in standing, but LLE longer in supine after bridge; Ant rotation of L innominate present in standing PT-OP-G Mobility & Gait Start: 02/06/19 08:09 Freq: Status: Active Protocol: Document 02/06/19 10:04 [facility] (Rec: 02/06/19 18:51 [facility] [id number]) OP Gait Assessment Comments Gait Comments Pt has dec ant elevation B with gait with significant pelvis ER with push off. Excessive lat leaning over R side w/loud heel strike of LLE indicating dec control PT-OP-J Posture/Palpation/Skin Start: 02/06/19 08:09 Freq: Status: Active Protocol: Document 02/06/19 10:04 [facility] (Rec: 02/06/19 18:51 [facility] [id number]) Posture Evaluation Comments Posture Comments fwd flexed pelvis with inc kyphosis PT-OP-K Range of Motion Start: 02/06/19 08:09 Freq: Status: Active Protocol: Document 02/06/19 10:04 [facility] (Rec: 02/06/19 18:51 [facility] [id number]) Lumbar Spine Range of Motion Lumbar Spine Active Degrees Comments not tested d/t restriction of twisting & bending PT-OP-L Special Tests Start: 02/06/19 08:09 Freq: Status: Active Protocol: Document 02/06/19 10:04 [facility] (Rec: 02/06/19 18:51 [facility] [id number]) Special Tests Lumbar Spine Special Tests Slump Test Results neg B Straight Leg Raise Test Results HS tightness R at 28 deg; L positive at 46 deg PT-OP-M Strength Start: 02/06/19 08:09 Freq: Status: Active Protocol: Document 02/06/19 10:04 [facility] (Rec: 02/06/19 18:51 [facility] [id number]) Hip Strength Hip Manual Muscle Testing Right Comments hip & knee strength not tested d/t inability for pt to sit without significant pain & bracing of UE PT-OP-Q Treatments Start: 02/06/19 08:09 Freq: Status: Active Protocol: Document 02/06/19 10:04 [facility] (Rec: 02/06/19 18:51 [facility] [id number]) Self-Care/Home Management Treatment Education Patient Education Home Exercise Program Pain Management Posture Other Education edu of joint anatomy PT-OP-T Assessment and Plan Start: 02/06/19 08:09 Freq: Status: Active Protocol: Document 02/06/19 10:04 [facility] (Rec: 02/06/19 18:51 [facility] [id number]) Physical Therapy Assessment Rehab Potential Rehabilitation Potential Good Evaluation Complexity Number of Personal Factors/Comorbidities 3 or More Number of Body Systems Impaired 4 or More Clinical Presentation at Evaluation Evolving Impairments Impairments Activity Tolerance Balance Functional Activities Functional Mobility Gait Pain Posture ROM Soft Tissue Mobility Strength Goals strength Short Term Goal (STG) Pt will be indep with therapist directed HEP STG Duration 03/08/19 Surveyor'S Assistant Goal (LTG) Pt will tolerate testing and will achieve 4+/5 B LE strength, LPM, VCT & EFT in order to show improved core & functional LE strength. LTG Duration 04/08/19 Two Impairment sitting Short Term Goal (STG) Pt will be able to sit for 5 min with no greater than 2 points increase pain on 10 point scale. STG Duration 03/08/19 Surveyor'S Assistant Goal (LTG) Pt will be able to sit 1 hour in order to allow him to sit for his classes LTG Duration 04/08/19 One Impairment gait Surveyor'S Assistant Goal (LTG) Pt will be able to amb with good mechanics without cuieng. 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 He has dec overall ROM, strength, activity/position tolerance, and imparied gait. He would benefit from skilled PT in order to address these concerns in order to get him back to his typical lifestyle and to improve his ability to participate in ADLs. Physical Therapy Plan Frequency and Duration Frequency of Treatment 2x/Week Duration of Treatment 2 months Plan of Care Start Date 02/06/19 Plan of Care End Date 04/08/19 Therapeutic Interventions Therapeutic Interventions Aquatic Therapy Balance Training Gait Training Home Exercise Program Joint Mobilizations Manual Therapy Neuromuscular Re-education Patient/Caregiver Education Self-Care/Home Management Soft Tissue Mobilization Taping Therapeutic Activities Therapeutic Exercises Modalities Cold Pack/Ice Massage Electric Stimulation Hot Packs Infrared Therapy Iontophoresis Ultrasound Next Visit Focus/Plan Next Note Type Treatment Note Next Visit Plan PNF for gait, core faciliation , STM & hip joint mobs
--- NOTE | 2019-02-06 18:51 | PT.OPPOC ---
Current Diagnoses Low back pain (02/06/19) Other specified postprocedural states (02/06/19) Provider Visit Care Team Role Provider Type Maribell Francisco Attending Provider Non-Staff Other Providers Primary Care Provider Specialty: Medical Address: [facility] [address], [place], [id number] Email: Plan Of Care PT-OP-T Assessment and Plan Start: 02/06/19 08:09 Freq: Status: Active Protocol: Document 02/06/19 10:04 [facility] (Rec: 02/06/19 18:51 [facility] [id number]) Physical Therapy Assessment Rehab Potential Rehabilitation Potential Good Evaluation Complexity Number of Personal Factors/Comorbidities 3 or More Number of Body Systems Impaired 4 or More Clinical Presentation at Evaluation Evolving Impairments Impairments Activity Tolerance Balance Functional Activities Functional Mobility Gait Pain Posture ROM Soft Tissue Mobility Strength Goals strength Short Term Goal (STG) Pt will be indep with therapist directed HEP STG Duration 03/08/19 Alf Goal (LTG) Pt will tolerate testing and will achieve 4+/5 B LE strength, LPM, VCT & EFT in order to show improved core & functional LE strength. LTG Duration 04/08/19 Two Impairment sitting Short Term Goal (STG) Pt will be able to sit for 5 min with no greater than 2 points increase pain on 10 point scale. STG Duration 03/08/19 Alf Goal (LTG) Pt will be able to sit 1 hour in order to allow him to sit for his classes LTG Duration 04/08/19 One Impairment gait Studio Couch Frame Builder Goal (LTG) Pt will be able to amb with good mechanics without cuieng. 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 He has dec overall ROM, strength, activity/position tolerance, and imparied gait. He would benefit from skilled PT in order to address these concerns in order to get him back to his typical lifestyle and to improve his ability to participate in ADLs. Physical Therapy Plan Frequency and Duration Frequency of Treatment 2x/Week Duration of Treatment 2 months Plan of Care Start Date 02/06/19 Plan of Care End Date 08/03/19 Therapeutic Interventions Therapeutic Interventions Aquatic Therapy Balance Training Gait Training Home Exercise Program Joint Mobilizations Manual Therapy Neuromuscular Re-education Patient/Caregiver Education Self-Care/Home Management Soft Tissue Mobilization Taping Therapeutic Activities Therapeutic Exercises Modalities Cold Pack/Ice Massage Electric Stimulation Hot Packs Infrared Therapy Iontophoresis Ultrasound Next Visit Focus/Plan Next Note Type Treatment Note Next Visit Plan PNF for gait, core faciliation , STM & hip joint mobs Plan of Care Dates Plan of Care Start Date 02/06/19 Plan of Care End Date 04/08/19 Please Sign and Return: I have reviewed this Plan of Care and certify that the skilled therapy services above are required to meet the patient?s needs. Physician Signature Date Printed Name and Credentials Clinical Instructor Signature Printed Name and Credentials
--- NOTE | 2019-02-08 19:21 | PT.OTN ---
Current Diagnoses Low back pain (02/08/19) Other specified postprocedural states (02/08/19) Physical Therapy Treatment Note PT-OP-A Visit Information Start: 02/06/19 08:09 Freq: Status: Active Protocol: Document 02/08/19 19:16 [facility] (Rec: 02/08/19 19:21 [facility] [id number]) Out-Patient Physical Therapy Visit Information Visit Information Visit Type Treatment Note Visit Start Time 11:20 Visit Stop Time 12:15 Total Visit Minutes 55 Visit Number 2/ Number of CONCRETE FORM SETTER AND FINISHER Visits 0 PT-OP-B Current Condition Start: 02/06/19 08:09 Freq: Status: Active Protocol: Document 02/06/19 10:04 [facility] (Rec: 02/06/19 12:14 [facility] [id number]) Current Condition History of Current Condition Onset Date oct 27 History of Current Condition Pt had disc replacement at L4- 5 on Oct 27, 2018. Pt reports sitting is significantly difficult now and leg pain is about 75% improved since surgery but back pain is still bad with movement. Pt saw MD about 1 week ago with limits of no bending, twisting or lifting. Pt is retiring in 60 days from [employer]. 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 History of injury: Pt reports he had an injury about 3 to 5 years ago when he was doing a 4 person lift for a 450 lb thing at work and then had to close the large lid and jumped off and noticed he tweaked his back> Reports when he got out the shower he felt like he couldn't walk and couldn't get up from floor. He rested in bed per MD recommendation for 3 days. [place] and came back and did PT but did not have relief with it. MD kept dx as mm spasm each time he went in and would give him mm relaxors . He had anohter injury where he was exercising recently and doing broad jumps and felt very uncomfortable in his back which inc his pain. 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 Pt does yoga and elliptical but is painful. He had an SUKHWINDER which gave him small bit of relief. Prior Treatments and Tests [place] therapist was making him do very painful activities & was not maintaining full focus on his case so he asked to go outside base; mult bouts of PT prior to surgery & injections Treatment Goals Patient/Caregiver Goals hiking longer distances (>1/4 mile) & uphill, be able to sit in class, be able to play with his kids PT-OP-C Subjective Start: 02/06/19 08:09 Freq: Status: Active Protocol: Document 02/08/19 19:16 [facility] (Rec: 02/08/19 19:21 [facility] [email or web address]) OP-PT Subjective Patient Comments Patient Comments Pt reports he is frustrated by inability to sit and back pain. PT-OP-F Manual Assessment Start: 02/06/19 08:09 Freq: Status: Active Protocol: Document 02/06/19 10:04 [facility] (Rec: 02/06/19 18:51 [facility] [email or web address]) Manual Assessments Soft Tissue Assessment Soft Tissue Mobility Assessment Tightness B ES & QL, iliacus, piriformis Joint Mobility Assessment Joint Mobility Assessment Iliac crests equal in height in standing, but LLE longer in supine after bridge; Ant rotation of L innominate present in standing PT-OP-G Mobility & Gait Start: 02/06/19 08:09 Freq: Status: Active Protocol: Document 02/06/19 10:04 [facility] (Rec: 02/06/19 18:51 [facility] [email or web address]) OP Gait Assessment Comments Gait Comments Pt has dec ant elevation B with gait with significant pelvis ER with push off. Excessive lat leaning over R side w/loud heel strike of LLE indicating dec control PT-OP-J Posture/Palpation/Skin Start: 02/06/19 08:09 Freq: Status: Active Protocol: Document 02/06/19 10:04 [facility] (Rec: 02/06/19 18:51 [facility] [id number]) Posture Evaluation Comments Posture Comments fwd flexed pelvis with inc kyphosis PT-OP-K Range of Motion Start: 02/06/19 08:09 Freq: Status: Active Protocol: Document 02/06/19 10:04 [facility] (Rec: 02/06/19 18:51 [facility] [email or web address]) Lumbar Spine Range of Motion Lumbar Spine Active Degrees Comments not tested d/t restriction of twisting & bending PT-OP-L Special Tests Start: 02/06/19 08:09 Freq: Status: Active Protocol: Document 02/06/19 10:04 [facility] (Rec: 02/06/19 18:51 [facility] [email or web address]) Special Tests Lumbar Spine Special Tests Slump Test Results neg B Straight Leg Raise Test Results HS tightness R at 28 deg; L positive at 46 deg PT-OP-M Strength Start: 02/06/19 08:09 Freq: Status: Active Protocol: Document 02/06/19 10:04 [facility] (Rec: 02/06/19 18:51 [facility] [email or web address]) Hip Strength Hip Manual Muscle Testing Right Comments hip & knee strength not tested d/t inability for pt to sit without significant pain & bracing of UE PT-OP-Q Treatments Start: 02/06/19 08:09 Freq: Status: Active Protocol: Document 02/08/19 19:16 [facility] (Rec: 02/08/19 19:21 [facility] [email or web address]) Manual Therapy Treatment Soft Tissue Mobilization scar tissue Body Location scar tissue mobs Mobilization Type Myofascial Release Rolling Strumming Sustained Pressure visceral mobs Body Location R to L with deep breathing Mobilization Type Sustained Pressure QL Body Location QL R Mobilization Type Myofascial Release Rolling Joint Mobilizations hip Joint hip Direction Inf glide FM Neuro Re-Education Treatment Other Activities post depression Details post depression Comments rhythmic initiation & sustained holds ant elevation Details ant elevation Comments rhythmic initiation & sustained holds Self-Care/Home Management Treatment Education Patient Education Home Exercise Program Pain Management Posture Other Education edu of joint anatomy at SI joint PT-OP-T Assessment and Plan Start: 02/06/19 08:09 Freq: Status: Active Protocol: Document 02/08/19 19:16 [facility] (Rec: 02/08/19 19:21 [facility] [email or web address]) Physical Therapy Assessment Goals strength Short Term Goal (STG) Pt will be indep with therapist directed HEP STG Duration 03/08/19 Puller Over Goal (LTG) Pt will tolerate testing and will achieve 4+/5 B LE strength, LPM, VCT & EFT in order to show improved core & functional LE strength. LTG Duration 04/08/19 Two Impairment sitting Short Term Goal (STG) Pt will be able to sit for 5 min with no greater than 2 points increase pain on 10 point scale. STG Duration 03/08/19 Puller Over Goal (LTG) Pt will be able to sit 1 hour in order to allow him to sit for his classes LTG Duration 04/08/19 One Impairment gait Puller Over Goal (LTG) Pt will be able to amb with good mechanics without cuieng. LTG Duration 04/08/19 Assessment Summary Assessment Pt had difficulty with tolerating PNF patterns today. He has signifcant scar restrictions in ant abdomen that will likely cont to restrict his movement ability. Pt has ant rotation of innominate on L side that pt does not tolerate direct mobilization or pressure to. Physical Therapy Plan Frequency and Duration Frequency of Treatment 2x/Week Duration of Treatment 2 months Plan of Care Start Date 02/06/19 Plan of Care End Date 04/08/19 Next Visit Focus/Plan Next Note Type Treatment Note Next Visit Plan MET for gibson core facilitation, STM ant
--- NOTE | 2019-02-16 16:46 | PT.OTN ---
Current Diagnoses Low back pain (02/16/19) Other specified postprocedural states (02/16/19) Physical Therapy Treatment Note PT-OP-A Visit Information Start: 02/06/19 08:09 Freq: Status: Active Protocol: Document 02/16/19 13:43 [facility] (Rec: 02/16/19 16:46 [facility] [id number]) Out-Patient Physical Therapy Visit Information Visit Information Visit Type Treatment Note Visit Start Time 13:45 Visit Stop Time 14:35 Total Visit Minutes 50 Visit Number 3/ Number of ANALYSIS LEAD Visits 0 PT-OP-B Current Condition Start: 02/06/19 08:09 Freq: Status: Active Protocol: Document 02/06/19 10:04 [facility] (Rec: 02/06/19 12:14 [facility] [id number]) Current Condition History of Current Condition Onset Date oct 27 History of Current Condition Pt had disc replacement at L4- 5 on Oct 27, 2018. Pt reports sitting is significantly difficult now and leg pain is about 75% improved since surgery but back pain is still bad with movement. Pt saw MD about 1 week ago with limits of no bending, twisting or lifting. Pt is retiring in 60 days from [employer]. 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 History of injury: Pt reports he had an injury about 3 to 5 years ago when he was doing a 4 person lift for a 450 lb thing at work and then had to close the large lid and jumped off and noticed he tweaked his back> Reports when he got out the shower he felt like he couldn't walk and couldn't get up from floor. He rested in bed per MD recommendation for 3 days. He did PT [place] and came back and did PT but did not have relief with it. MD kept dx as mm spasm each time he went in and would give him mm relaxors . He had anohter injury where he was exercising recently and doing broad jumps and felt very uncomfortable in his back which inc his pain. 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 Pt does yoga and elliptical but is painful. He had an SUKHWINDER which gave him small bit of relief. Prior Treatments and Tests [place] but therapist was making him do very painful activities & was not maintaining full focus on his case so he asked to go outside base; mult bouts of PT prior to surgery & injections Treatment Goals Patient/Caregiver Goals hiking longer distances (>1/4 mile) & uphill, be able to sit in class, be able to play with his kids PT-OP-C Subjective Start: 02/06/19 08:09 Freq: Status: Active Protocol: Document 02/16/19 13:43 [facility] (Rec: 02/16/19 16:46 [facility] [id number]) OP-PT Subjective Patient Comments Patient Comments Pt reports compliance w/ stretches PT-OP-F Manual Assessment Start: 02/06/19 08:09 Freq: Status: Active Protocol: Document 02/06/19 10:04 [facility] (Rec: 02/06/19 18:51 [facility] [email or web address]) Manual Assessments Soft Tissue Assessment Soft Tissue Mobility Assessment Tightness B ES & QL, iliacus, piriformis Joint Mobility Assessment Joint Mobility Assessment Iliac crests equal in height in standing, but LLE longer in supine after bridge; Ant rotation of L innominate present in standing PT-OP-G Mobility & Gait Start: 02/06/19 08:09 Freq: Status: Active Protocol: Document 02/06/19 10:04 [facility] (Rec: 02/06/19 18:51 [facility] [email or web address]) OP Gait Assessment Comments Gait Comments Pt has dec ant elevation B with gait with significant pelvis ER with push off. Excessive lat leaning over R side w/loud heel strike of LLE indicating dec control PT-OP-J Posture/Palpation/Skin Start: 02/06/19 08:09 Freq: Status: Active Protocol: Document 02/06/19 10:04 [facility] (Rec: 02/06/19 18:51 [facility] [email or web address]) Posture Evaluation Comments Posture Comments fwd flexed pelvis with inc kyphosis PT-OP-K Range of Motion Start: 02/06/19 08:09 Freq: Status: Active Protocol: Document 02/06/19 10:04 [facility] (Rec: 02/06/19 18:51 [facility] [email or web address]) Lumbar Spine Range of Motion Lumbar Spine Active Degrees Comments not tested d/t restriction of twisting & bending PT-OP-L Special Tests Start: 02/06/19 08:09 Freq: Status: Active Protocol: Document 02/06/19 10:04 [facility] (Rec: 02/06/19 18:51 [facility] [email or web address]) Special Tests Lumbar Spine Special Tests Slump Test Results neg B Straight Leg Raise Test Results HS tightness R at 28 deg; L positive at 46 deg PT-OP-M Strength Start: 02/06/19 08:09 Freq: Status: Active Protocol: Document 02/06/19 10:04 [facility] (Rec: 02/06/19 18:51 [facility] [email or web address]) Hip Strength Hip Manual Muscle Testing Right Comments hip & knee strength not tested d/t inability for pt to sit without significant pain & bracing of UE PT-OP-Q Treatments Start: 02/06/19 08:09 Freq: Status: Active Protocol: Document 02/16/19 13:43 [facility] (Rec: 02/16/19 16:46 [facility] [id number]) Manual Therapy Treatment Soft Tissue Mobilization ES Body Location ES Mobilization Type Myofascial Release Rolling Strumming Sustained Pressure Comments s/l w/in flex visceral mobs Body Location R to L with deep breathing Mobilization Type Sustained Pressure Manual Techniques MET Type for ant R rot PT-OP-T Assessment and Plan Start: 02/06/19 08:09 Freq: Status: Active Protocol: Document 02/16/19 13:43 [facility] (Rec: 02/16/19 16:46 [facility] [id number]) Physical Therapy Assessment Goals strength Short Term Goal (STG) Pt will be indep with therapist directed HEP STG Duration 03/08/19 Suspender Cutter Goal (LTG) Pt will tolerate testing and will achieve 4+/5 B LE strength, LPM, VCT & EFT in order to show improved core & functional LE strength. LTG Duration 04/08/19 Two Impairment sitting Short Term Goal (STG) Pt will be able to sit for 5 min with no greater than 2 points increase pain on 10 point scale. STG Duration 03/08/19 Suspender Cutter Goal (LTG) Pt will be able to sit 1 hour in order to allow him to sit for his classes LTG Duration 04/08/19 One Impairment gait Snf Goal (LTG) Pt will be able to amb with good mechanics without cuieng. LTG Duration 04/08/19 Assessment Summary Assessment Pt had inc pain after treatment and chose to ice after. He had improvement in pelvis position after treatment. Physical Therapy Plan Frequency and Duration Frequency of Treatment 2x/Week Duration of Treatment 2 months Plan of Care Start Date 02/06/19 Plan of Care End Date 04/08/19 Next Visit Focus/Plan Next Note Type Treatment Note Next Visit Plan STM ant and work on ability to hip flex & core faciliation
--- NOTE | 2019-02-21 19:17 | PT.OTN ---
Current Diagnoses Low back pain (02/21/19) Other specified postprocedural states (02/21/19) Physical Therapy Treatment Note PT-OP-A Visit Information Start: 02/06/19 08:09 Freq: Status: Active Protocol: Document 02/21/19 19:10 [facility] (Rec: 02/22/19 19:17 [facility] [id number]) Out-Patient Physical Therapy Visit Information Visit Information Visit Type Treatment Note Visit Start Time 13:45 Visit Stop Time 14:40 Total Visit Minutes 55 Visit Number 4/ Number of ACID TANK CLEANER Visits 0 PT-OP-B Current Condition Start: 02/06/19 08:09 Freq: Status: Active Protocol: Document 02/06/19 10:04 [facility] (Rec: 02/06/19 12:14 [facility] [id number]) Current Condition History of Current Condition Onset Date oct 27 History of Current Condition Pt had disc replacement at L4- 5 on Oct 27, 2018. Pt reports sitting is significantly difficult now and leg pain is about 75% improved since surgery but back pain is still bad with movement. Pt saw MD about 1 week ago with limits of no bending, twisting or lifting. Pt is retiring in 60 days from [employer]. 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 History of injury: Pt reports he had an injury about 3 to 5 years ago when he was doing a 4 person lift for a 450 lb thing at work and then had to close the large lid and jumped off and noticed he tweaked his back> Reports when he got out the shower he felt like he couldn't walk and couldn't get up from floor. He rested in bed per MD recommendation for 3 days. [place] and came [place] and did PT but did not have relief with it. MD kept dx as mm spasm each time he went in and would give him mm relaxors . He had anohter injury where he was exercising recently and doing broad jumps and felt very uncomfortable in his back which inc his pain. 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 Pt does yoga and elliptical but is painful. He had an SUKHWINDER which gave him small bit of relief. Prior Treatments and Tests [place] therapist was making him do very painful activities & was not maintaining full focus on his case so he asked to go outside base; mult bouts of PT prior to surgery & injections Treatment Goals Patient/Caregiver Goals hiking longer distances (>1/4 mile) & uphill, be able to sit in class, be able to play with his kids PT-OP-C Subjective Start: 02/06/19 08:09 Freq: Status: Active Protocol: Document 02/21/19 19:10 [facility] (Rec: 02/22/19 19:17 [facility] [email or web address]) OP-PT Subjective Patient Comments Patient Comments Pt reports being flared up after last session. He reports today has not been a great day with pain. PT-OP-F Manual Assessment Start: 02/06/19 08:09 Freq: Status: Active Protocol: Document 02/06/19 10:04 [facility] (Rec: 02/06/19 18:51 [facility] [id number]) Manual Assessments Soft Tissue Assessment Soft Tissue Mobility Assessment Tightness B ES & QL, iliacus, piriformis Joint Mobility Assessment Joint Mobility Assessment Iliac crests equal in height in standing, but LLE longer in supine after bridge; Ant rotation of L innominate present in standing PT-OP-G Mobility & Gait Start: 02/06/19 08:09 Freq: Status: Active Protocol: Document 02/06/19 10:04 [facility] (Rec: 02/06/19 18:51 [facility] [id number]) OP Gait Assessment Comments Gait Comments Pt has dec ant elevation B with gait with significant pelvis ER with push off. Excessive lat leaning over R side w/loud heel strike of LLE indicating dec control PT-OP-J Posture/Palpation/Skin Start: 02/06/19 08:09 Freq: Status: Active Protocol: Document 02/06/19 10:04 [facility] (Rec: 02/06/19 18:51 [facility] [id number]) Posture Evaluation Comments Posture Comments fwd flexed pelvis with inc kyphosis PT-OP-K Range of Motion Start: 02/06/19 08:09 Freq: Status: Active Protocol: Document 02/06/19 10:04 [facility] (Rec: 02/06/19 18:51 [facility] [id number]) Lumbar Spine Range of Motion Lumbar Spine Active Degrees Comments not tested d/t restriction of twisting & bending PT-OP-L Special Tests Start: 02/06/19 08:09 Freq: Status: Active Protocol: Document 02/06/19 10:04 [facility] (Rec: 02/06/19 18:51 [facility] [email or web address]) Special Tests Lumbar Spine Special Tests Slump Test Results neg B Straight Leg Raise Test Results HS tightness R at 28 deg; L positive at 46 deg PT-OP-M Strength Start: 02/06/19 08:09 Freq: Status: Active Protocol: Document 02/06/19 10:04 [facility] (Rec: 02/06/19 18:51 [facility] [id number]) Hip Strength Hip Manual Muscle Testing Right Comments hip & knee strength not tested d/t inability for pt to sit without significant pain & bracing of UE PT-OP-Q Treatments Start: 02/06/19 08:09 Freq: Status: Active Protocol: Document 02/21/19 19:10 [facility] (Rec: 02/22/19 19:17 [facility] [id number]) Manual Therapy Treatment Soft Tissue Mobilization ES Body Location ES Mobilization Type Myofascial Release Rolling Strumming Sustained Pressure Comments s/l w/in flex scar tissue Body Location scar tissue mobs Mobilization Type Myofascial Release Rolling Strumming Sustained Pressure psoas Body Location L>R Mobilization Type Sustained Pressure Intensity/Depth Deep Body Position Supine rectus abdominus Body Location RA Mobilization Type Sustained Pressure Intensity/Depth Moderate Body Position Supine QL Body Location QL R Mobilization Type Myofascial Release Rolling PT-OP-T Assessment and Plan Start: 02/06/19 08:09 Freq: Status: Active Protocol: Document 02/21/19 19:10 [facility] (Rec: 02/22/19 19:17 [facility] [email or web address]) Physical Therapy Assessment Goals strength Short Term Goal (STG) Pt will be indep with therapist directed HEP STG Duration 03/08/19 Rehabilitation Inspector Goal (LTG) Pt will tolerate testing and will achieve 4+/5 B LE strength, LPM, VCT & EFT in order to show improved core & functional LE strength. LTG Duration 04/08/19 Two Impairment sitting Short Term Goal (STG) Pt will be able to sit for 5 min with no greater than 2 points increase pain on 10 point scale. STG Duration 03/08/19 Senior Living Goal (LTG) Pt will be able to sit 1 hour in order to allow him to sit for his classes LTG Duration 04/08/19 One Impairment gait Senior Living Goal (LTG) Pt will be able to amb with good mechanics without cuieng. LTG Duration 04/08/19 Assessment Summary Assessment Pt did not tolerate MET or mobs from last session so this session was primarily to dec pain by releasing soft tissue restrictions to improve with movement. He has signficant tightness around umbillicus region that he feels pull to his back and other areas of his abdomen. Physical Therapy Plan Frequency and Duration Frequency of Treatment 2x/Week Duration of Treatment 2 months Plan of Care Start Date 02/06/19 Plan of Care End Date 04/08/19 Next Visit Focus/Plan Next Note Type Treatment Note Next Visit Plan Work on gait mechanics & gentle hip strengthening & stretching exercises as tolerated
--- NOTE | 2019-02-24 14:36 | PT.OTN ---
Current Diagnoses Low back pain (02/24/19) Other specified postprocedural states (02/24/19) Physical Therapy Treatment Note PT-OP-A Visit Information Start: 02/06/19 08:09 Freq: Status: Active Protocol: Document 02/24/19 14:23 [facility] (Rec: 02/24/19 14:29 [facility] [id number]) Out-Patient Physical Therapy Visit Information Visit Information Visit Type Aquatic Treatment Note Visit Start Time 12:30 Visit Stop Time 13:15 Total Visit Minutes 45 Visit Number 01/15 Number of WIRE TINNER Visits 0 PT-OP-B Current Condition Start: 02/06/19 08:09 Freq: Status: Active Protocol: Document 02/06/19 10:04 [facility] (Rec: 02/06/19 12:14 [facility] [id number]) Current Condition History of Current Condition Onset Date oct 27 History of Current Condition Pt had disc replacement at L4- 5 on Oct 27, 2018. Pt reports sitting is significantly difficult now and leg pain is about 75% improved since surgery but back pain is still bad with movement. Pt saw MD about 1 week ago with limits of no bending, twisting or lifting. Pt is retiring in 60 days from [employer]. 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 History of injury: Pt reports he had an injury about 3 to 5 years ago when he was doing a 4 person lift for a 450 lb thing at work and then had to close the large lid and jumped off and noticed he tweaked his back> Reports when he got out the shower he felt like he couldn't walk and couldn't get up from floor. He rested in bed per MD recommendation for 3 days. [place] did [place] and came back and did PT but did not have relief with it. MD kept dx as mm spasm each time he went in and would give him mm relaxors . He had anohter injury where he was exercising recently and doing broad jumps and felt very uncomfortable in his back which inc his pain. 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 Pt does yoga and elliptical but is painful. He had an SUKHWINDER which gave him small bit of relief. Prior Treatments and Tests [place] but therapist was making him do very painful activities & was not maintaining full focus on his case so he asked to go outside base; mult bouts of PT prior to surgery & injections Treatment Goals Patient/Caregiver Goals hiking longer distances (>1/4 mile) & uphill, be able to sit in class, be able to play with his kids PT-OP-C Subjective Start: 02/06/19 08:09 Freq: Status: Active Protocol: Document 02/24/19 14:23 [facility] (Rec: 02/24/19 14:29 [facility] [id number]) OP-PT Subjective Patient Comments Patient Comments Reports increased pain after manual treatment last session. Continues with HEP, trying to activate core musculature. PT-OP-F Manual Assessment Start: 02/06/19 08:09 Freq: Status: Active Protocol: Document 02/06/19 10:04 [facility] (Rec: 02/06/19 18:51 [facility] [id number]) Manual Assessments Soft Tissue Assessment Soft Tissue Mobility Assessment Tightness B ES & QL, iliacus, piriformis Joint Mobility Assessment Joint Mobility Assessment Iliac crests equal in height in standing, but LLE longer in supine after bridge; Ant rotation of L innominate present in standing PT-OP-G Mobility & Gait Start: 02/06/19 08:09 Freq: Status: Active Protocol: Document 02/06/19 10:04 [facility] (Rec: 02/06/19 18:51 [facility] [id number]) OP Gait Assessment Comments Gait Comments Pt has dec ant elevation B with gait with significant pelvis ER with push off. Excessive lat leaning over R side w/loud heel strike of LLE indicating dec control PT-OP-J Posture/Palpation/Skin Start: 02/06/19 08:09 Freq: Status: Active Protocol: Document 02/06/19 10:04 [facility] (Rec: 02/06/19 18:51 [facility] [id number]) Posture Evaluation Comments Posture Comments fwd flexed pelvis with inc kyphosis PT-OP-K Range of Motion Start: 02/06/19 08:09 Freq: Status: Active Protocol: Document 02/06/19 10:04 [facility] (Rec: 02/06/19 18:51 [facility] [id number]) Lumbar Spine Range of Motion Lumbar Spine Active Degrees Comments not tested d/t restriction of twisting & bending PT-OP-L Special Tests Start: 02/06/19 08:09 Freq: Status: Active Protocol: Document 02/06/19 10:04 [facility] (Rec: 02/06/19 18:51 [facility] [email or web address]) Special Tests Lumbar Spine Special Tests Slump Test Results neg B Straight Leg Raise Test Results HS tightness R at 28 deg; L positive at 46 deg PT-OP-M Strength Start: 02/06/19 08:09 Freq: Status: Active Protocol: Document 02/06/19 10:04 [facility] (Rec: 02/06/19 18:51 [facility] [id number]) Hip Strength Hip Manual Muscle Testing Right Comments hip & knee strength not tested d/t inability for pt to sit without significant pain & bracing of UE PT-OP-Q Treatments Start: 02/06/19 08:09 Freq: Status: Active Protocol: Document 02/21/19 19:10 [facility] (Rec: 02/22/19 19:17 [facility] [id number]) Manual Therapy Treatment Soft Tissue Mobilization ES Body Location ES Mobilization Type Myofascial Release Rolling Strumming Sustained Pressure Comments s/l w/in flex scar tissue Body Location scar tissue mobs Mobilization Type Myofascial Release Rolling Strumming Sustained Pressure psoas Body Location L>R Mobilization Type Sustained Pressure Intensity/Depth Deep Body Position Supine rectus abdominus Body Location RA Mobilization Type Sustained Pressure Intensity/Depth Moderate Body Position Supine QL Body Location QL R Mobilization Type Myofascial Release Rolling PT-OP-S Aquatic Treatment Start: 02/24/19 14:30 Freq: Status: Active Protocol: Document 02/24/19 14:23 [facility] (Rec: 02/24/19 14:36 [facility] [id number]) Aquatics Treatment Pool Entry/Exit Pool Entry/Exit Method Stairs Assistance Independent Water Walking side Water Level Chest Level forward Water Level Chest Level Comments no equipment, then holding 1 small bb in front to facilitate abdominal mm Upper Extremity Exercises UE pull downs Details anterior Water Level Chest Level Equipment small barbells Reps/Duration 10x shld flex/ext Details wilfredo, alt Body Position Standing Water Level Chest Level Reps/Duration 10x ea Comments emphasis on core stab hor ab/ad Details wilfredo and unil Water Level Chest Level Reps/Duration 10x ea Comments emphasis on core stab [place] Activities Other Activities water walk forward Deep water stab: iron cross, UE lateral pull downs Deep water hang at wall: 2 min x 4 with deep breathing Equipment large noodle, small barbells PT-OP-T Assessment and Plan Start: 02/06/19 08:09 Freq: Status: Active Protocol: Document 02/24/19 14:23 [facility] (Rec: 02/24/19 14:29 [facility] [id number]) Physical Therapy Assessment Goals strength Short Term Goal (STG) Pt will be indep with therapist directed HEP STG Duration 03/08/19 Smooth And Burr Worker Composites Goal (LTG) Pt will tolerate testing and will achieve 4+/5 B LE strength, LPM, VCT & EFT in order to show improved core & functional LE strength. LTG Duration 04/08/19 Two Impairment sitting Short Term Goal (STG) Pt will be able to sit for 5 min with no greater than 2 points increase pain on 10 point scale. STG Duration 03/08/19 [employer] Worker [employer]posites Goal (LTG) Pt will be able to sit 1 hour in order to allow him to sit for his classes LTG Duration 04/08/19 One Impairment gait Smooth [employer] Worker Composites Goal (LTG) Pt will be able to amb with good mechanics without cuieng. LTG Duration 04/08/19 Assessment Summary Assessment Patient reported no pain with vertical hanging in deep water , but c/o pain with water walking though less than on land and less in deep water vs shallow. Needed verbal and manual cues for postural alignment and core stabilization with all activities. Decreased pain in aquatic environment; feel he would benefit from further aquatic PT. Physical Therapy Plan Frequency and Duration Frequency of Treatment 2x/Week Duration of Treatment 2 months Plan of Care Start Date 02/06/19 Plan of Care End Date 04/08/19 Therapeutic Interventions Therapeutic Interventions Aquatic Therapy Balance Training Gait Training Home Exercise Program Joint Mobilizations Manual Therapy Neuromuscular Re-education Patient/Caregiver Education Self-Care/Home Management Soft Tissue Mobilization Taping Therapeutic Activities Therapeutic Exercises Modalities Cold Pack/Ice Massage Electric Stimulation Hot Packs Infrared Therapy Iontophoresis Ultrasound Next Visit Focus/Plan Next Note Type Treatment Note Next Visit Plan Recommend additional aquatic therapy sessions. Trial deep water traction next session.
--- NOTE | 2019-03-14 12:08 | PT.OTN ---
Current Diagnoses Low back pain (03/14/19) Other specified postprocedural states (03/14/19) Physical Therapy Treatment Note PT-OP-A Visit Information Start: 02/06/19 08:09 Freq: Status: Active Protocol: Document 03/14/19 12:00 [facility] (Rec: 03/15/19 11:08 [facility] [id number]) Out-Patient Physical Therapy Visit Information Visit Information Visit Type Treatment Note Visit Start Time 11:18 Visit Stop Time 12:03 Total Visit Minutes 45 Visit Number 02/15 Number of SALES AGENT BUSINESS SERVICES Visits 0 PT-OP-B Current Condition Start: 02/06/19 08:09 Freq: Status: Active Protocol: Document 02/06/19 10:04 [facility] (Rec: 02/06/19 12:14 [facility] [id number]) Current Condition History of Current Condition Onset Date oct 27 History of Current Condition Pt had disc replacement at L4- 5 on Oct 27, 2018. Pt reports sitting is significantly difficult now and leg pain is about 75% improved since surgery but back pain is still bad with movement. Pt saw MD about 1 week ago with limits of no bending, twisting or lifting. Pt is retiring in 60 days from [email or web address]. 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 History of injury: Pt reports he had an injury about 3 to 5 years ago when he was doing a 4 person lift for a 450 lb thing at work and then had to close the large lid and jumped off and noticed he tweaked his back> Reports when he got out the shower he felt like he couldn't walk and couldn't get up from floor. He rested in bed per MD recommendation for 3 days. [place] did [place] and came back and did PT but did not have relief with it. MD kept dx as mm spasm each time he went in and would give him mm relaxors . He had anohter injury where he was exercising recently and doing broad jumps and felt very uncomfortable in his back which inc his pain. 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 Pt does yoga and elliptical but is painful. He had an SUKHWINDER which gave him small bit of relief. Prior Treatments and Tests [place] but therapist was making him do very painful activities & was not maintaining full focus on his case so he asked to go outside base; mult bouts of PT prior to surgery & injections Treatment Goals Patient/Caregiver Goals hiking longer distances (>1/4 mile) & uphill, be able to sit in class, be able to play with his kids PT-OP-C Subjective Start: 02/06/19 08:09 Freq: Status: Active Protocol: Document 03/14/19 12:00 [facility] (Rec: 03/15/19 11:08 [facility] [id number]) OP-PT Subjective Patient Comments Patient Comments Pt reports he has been having some intermittent pain in RLE. Notes he has been moving. He has been working on some of his abdominal strengthening. PT-OP-F Manual Assessment Start: 02/06/19 08:09 Freq: Status: Active Protocol: Document 02/06/19 10:04 [facility] (Rec: 02/06/19 18:51 [facility] [id number]) Manual Assessments Soft Tissue Assessment Soft Tissue Mobility Assessment Tightness B ES & QL, iliacus, piriformis Joint Mobility Assessment Joint Mobility Assessment Iliac crests equal in height in standing, but LLE longer in supine after bridge; Ant rotation of L innominate present in standing PT-OP-G Mobility & Gait Start: 02/06/19 08:09 Freq: Status: Active Protocol: Document 02/06/19 10:04 [facility] (Rec: 02/06/19 18:51 [facility] [id number]) OP Gait Assessment Comments Gait Comments Pt has dec ant elevation B with gait with significant pelvis ER with push off. Excessive lat leaning over R side w/loud heel strike of LLE indicating dec control PT-OP-J Posture/Palpation/Skin Start: 02/06/19 08:09 Freq: Status: Active Protocol: Document 02/06/19 10:04 [facility] (Rec: 02/06/19 18:51 [facility] [id number]) Posture Evaluation Comments Posture Comments fwd flexed pelvis with inc kyphosis PT-OP-K Range of Motion Start: 02/06/19 08:09 Freq: Status: Active Protocol: Document 02/06/19 10:04 [facility] (Rec: 02/06/19 18:51 [facility] [id number]) Lumbar Spine Range of Motion Lumbar Spine Active Degrees Comments not tested d/t restriction of twisting & bending PT-OP-L Special Tests Start: 02/06/19 08:09 Freq: Status: Active Protocol: Document 02/06/19 10:04 [facility] (Rec: 02/06/19 18:51 [facility] [id number]) Special Tests Lumbar Spine Special Tests Slump Test Results neg B Straight Leg Raise Test Results HS tightness R at 28 deg; L positive at 46 deg PT-OP-M Strength Start: 02/06/19 08:09 Freq: Status: Active Protocol: Document 02/06/19 10:04 [facility] (Rec: 02/06/19 18:51 [facility] [id number]) Hip Strength Hip Manual Muscle Testing Right Comments hip & knee strength not tested d/t inability for pt to sit without significant pain & bracing of UE PT-OP-Q Treatments Start: 02/06/19 08:09 Freq: Status: Active Protocol: Document 03/14/19 12:00 [facility] (Rec: 03/15/19 11:08 [facility] [id number]) Therapeutic Exercises Supine Exercises LTR Supine Exercise Name focusing on core engagement Side bilateral Reps/Minutes 8 Manual Therapy Treatment Soft Tissue Mobilization scar tissue Body Location scar tissue mobs Mobilization Type Myofascial Release Rolling Strumming Sustained Pressure visceral mobs Body Location R to L with deep breathing Mobilization Type Sustained Pressure Intensity/Depth Superficial iliacus Body Location R Mobilization Type Strumming Sustained Pressure Comments supine & s/l PT-OP-S Aquatic Treatment Start: 02/24/19 14:30 Freq: Status: Active Protocol: Document 02/24/19 14:23 [facility] (Rec: 02/24/19 14:36 [facility] [id number]) Aquatics Treatment Pool Entry/Exit Pool Entry/Exit Method Stairs Assistance Independent Water Walking side Water Level Chest Level forward Water Level Chest Level Comments no equipment, then holding 1 small bb in front to facilitate abdominal mm Upper Extremity Exercises UE pull downs Details anterior Water Level Chest Level Equipment small barbells Reps/Duration 10x shld flex/ext Details wilfredo, alt Body Position Standing Water Level Chest Level Reps/Duration 10x ea Comments emphasis on core stab hor ab/ad Details wilfredo and unil Water Level Chest Level Reps/Duration 10x ea Comments emphasis on core stab [place] Activities Other Activities water walk forward Deep water stab: iron cross, UE lateral pull downs Deep water hang at wall: 2 min x 4 with deep breathing Equipment large noodle, small barbells PT-OP-T Assessment and Plan Start: 02/06/19 08:09 Freq: Status: Active Protocol: Document 03/14/19 12:00 [facility] (Rec: 03/15/19 11:08 [facility] [id number]) Physical Therapy Assessment Goals strength Short Term Goal (STG) Pt will be indep with therapist directed HEP STG Duration 03/08/19 Retirement Goal (LTG) Pt will tolerate testing and will achieve 4+/5 B LE strength, LPM, VCT & EFT in order to show improved core & functional LE strength. LTG Duration 04/08/19 Two Impairment sitting Short Term Goal (STG) Pt will be able to sit for 5 min with no greater than 2 points increase pain on 10 point scale. STG Duration 03/08/19 Retirement Goal (LTG) Pt will be able to sit 1 hour in order to allow him to sit for his classes LTG Duration 04/08/19 One Impairment gait Bottle And Glass Inspector Goal (LTG) Pt will be able to amb with good mechanics without cuieng. LTG Duration 04/08/19 Assessment Summary Assessment Pt was only able to tolerate positons for short durations today but transitional positions are improved (supine <>sit & sit<>stand). Physical Therapy Plan Frequency and Duration Frequency of Treatment 2x/Week Duration of Treatment 2 months Plan of Care Start Date 02/06/19 Plan of Care End Date 04/08/19 Next Visit Focus/Plan Next Note Type Treatment Note Next Visit Plan Discuss re: further aquatic sessions. Work on squatting and lifting mechanics
--- NOTE | 2019-03-15 11:08 | PT.OTN ---
Current Diagnoses Low back pain (03/14/19) Other specified postprocedural states (03/14/19) Physical Therapy Treatment Note PT-OP-A Visit Information Start: 02/06/19 08:09 Freq: Status: Active Protocol: Document 03/14/19 12:00 [facility] (Rec: 03/15/19 11:08 [facility] [id number]) Out-Patient Physical Therapy Visit Information Visit Information Visit Type Treatment Note Visit Start Time 11:18 Visit Stop Time 12:03 Total Visit Minutes 45 Visit Number 02/15 Number of TRIP RIDER Visits 0 PT-OP-B Current Condition Start: 02/06/19 08:09 Freq: Status: Active Protocol: Document 02/06/19 10:04 [facility] (Rec: 02/06/19 12:14 [facility] [id number]) Current Condition History of Current Condition Onset Date oct 27 History of Current Condition Pt had disc replacement at L4- 5 on Oct 27, 2018. Pt reports sitting is significantly difficult now and leg pain is about 75% improved since surgery but back pain is still bad with movement. Pt saw MD about 1 week ago with limits of no bending, twisting or lifting. Pt is retiring in 60 days from [employer]. 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 History of injury: Pt reports he had an injury about 3 to 5 years ago when he was doing a 4 person lift for a 450 lb thing at work and then had to close the large lid and jumped off and noticed he tweaked his back> Reports when he got out the shower he felt like he couldn't walk and couldn't get up from floor. He rested in bed per MD recommendation for 3 days. [place] and came back and did PT but did not have relief with it. MD kept dx as mm spasm each time he went in and would give him mm relaxors . He had anohter injury where he was exercising recently and doing broad jumps and felt very uncomfortable in his back which inc his pain. 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 Pt does yoga and elliptical but is painful. He had an SUKHWINDER which gave him small bit of relief. Prior Treatments and Tests [place] therapist was making him do very painful activities & was not maintaining full focus on his case so he asked to go outside base; mult bouts of PT prior to surgery & injections Treatment Goals Patient/Caregiver Goals hiking longer distances (>1/4 mile) & uphill, be able to sit in class, be able to play with his kids PT-OP-C Subjective Start: 02/06/19 08:09 Freq: Status: Active Protocol: Document 03/14/19 12:00 [facility] (Rec: 03/15/19 11:08 [facility] [id number]) OP-PT Subjective Patient Comments Patient Comments Pt reports he has been having some intermittent pain in RLE. Notes he has been moving. He has been working on some of his abdominal strengthening. PT-OP-F Manual Assessment Start: 02/06/19 08:09 Freq: Status: Active Protocol: Document 02/06/19 10:04 [facility] (Rec: 02/06/19 18:51 [facility] [id number]) Manual Assessments Soft Tissue Assessment Soft Tissue Mobility Assessment Tightness B ES & QL, iliacus, piriformis Joint Mobility Assessment Joint Mobility Assessment Iliac crests equal in height in standing, but LLE longer in supine after bridge; Ant rotation of L innominate present in standing PT-OP-G Mobility & Gait Start: 02/06/19 08:09 Freq: Status: Active Protocol: Document 02/06/19 10:04 [facility] (Rec: 02/06/19 18:51 [facility] [id number]) OP Gait Assessment Comments Gait Comments Pt has dec ant elevation B with gait with significant pelvis ER with push off. Excessive lat leaning over R side w/loud heel strike of LLE indicating dec control PT-OP-J Posture/Palpation/Skin Start: 02/06/19 08:09 Freq: Status: Active Protocol: Document 02/06/19 10:04 [facility] (Rec: 02/06/19 18:51 [facility] [id number]) Posture Evaluation Comments Posture Comments fwd flexed pelvis with inc kyphosis PT-OP-K Range of Motion Start: 02/06/19 08:09 Freq: Status: Active Protocol: Document 02/06/19 10:04 [facility] (Rec: 02/06/19 18:51 [facility] [id number]) Lumbar Spine Range of Motion Lumbar Spine Active Degrees Comments not tested d/t restriction of twisting & bending PT-OP-L Special Tests Start: 02/06/19 08:09 Freq: Status: Active Protocol: Document 02/06/19 10:04 [facility] (Rec: 02/06/19 18:51 [facility] [id number]) Special Tests Lumbar Spine Special Tests Slump Test Results neg B Straight Leg Raise Test Results HS tightness R at 28 deg; L positive at 46 deg PT-OP-M Strength Start: 02/06/19 08:09 Freq: Status: Active Protocol: Document 02/06/19 10:04 [facility] (Rec: 02/06/19 18:51 [facility] [id number]) Hip Strength Hip Manual Muscle Testing Right Comments hip & knee strength not tested d/t inability for pt to sit without significant pain & bracing of UE PT-OP-Q Treatments Start: 02/06/19 08:09 Freq: Status: Active Protocol: Document 03/14/19 12:00 [facility] (Rec: 03/15/19 11:08 [facility] [id number]) Therapeutic Exercises Supine Exercises LTR Supine Exercise Name focusing on core engagement Side bilateral Reps/Minutes 8 Manual Therapy Treatment Soft Tissue Mobilization scar tissue Body Location scar tissue mobs Mobilization Type Myofascial Release Rolling Strumming Sustained Pressure visceral mobs Body Location R to L with deep breathing Mobilization Type Sustained Pressure Intensity/Depth Superficial iliacus Body Location R Mobilization Type Strumming Sustained Pressure Comments supine & s/l PT-OP-S Aquatic Treatment Start: 02/24/19 14:30 Freq: Status: Active Protocol: Document 02/24/19 14:23 [facility] (Rec: 02/24/19 14:36 [facility] [id number]) Aquatics Treatment Pool Entry/Exit Pool Entry/Exit Method Stairs Assistance Independent Water Walking side Water Level Chest Level forward Water Level Chest Level Comments no equipment, then holding 1 small bb in front to facilitate abdominal mm Upper Extremity Exercises UE pull downs Details anterior Water Level Chest Level Equipment small barbells Reps/Duration 10x shld flex/ext Details wilfredo, alt Body Position Standing Water Level Chest Level Reps/Duration 10x ea Comments emphasis on core stab hor ab/ad Details wilfredo and unil Water Level Chest Level Reps/Duration 10x ea Comments emphasis on core stab Shock Activities Other Activities water walk forward Deep water stab: iron cross, UE lateral pull downs Deep water hang at wall: 2 min x 4 with deep breathing Equipment large noodle, small barbells PT-OP-T Assessment and Plan Start: 02/06/19 08:09 Freq: Status: Active Protocol: Document 03/14/19 12:00 [facility] (Rec: 03/15/19 11:08 [facility] [id number]) Physical Therapy Assessment Goals strength Short Term Goal (STG) Pt will be indep with therapist directed HEP STG Duration 03/08/19 [facility] Goal (LTG) Pt will tolerate testing and will achieve 4+/5 B LE strength, LPM, VCT & EFT in order to show improved core & functional LE strength. LTG Duration 04/08/19 Two Impairment sitting Short Term Goal (STG) Pt will be able to sit for 5 min with no greater than 2 points increase pain on 10 point scale. STG Duration 03/08/19 [facility] Goal (LTG) Pt will be able to sit 1 hour in order to allow him to sit for his classes LTG Duration 04/08/19 One Impairment gait Research & Analytics Manager Goal (LTG) Pt will be able to amb with good mechanics without cuieng. LTG Duration 04/08/19 Assessment Summary Assessment Pt was only able to tolerate positons for short durations today but transitional positions are improved (supine <>sit & sit<>stand). Physical Therapy Plan Frequency and Duration Frequency of Treatment 2x/Week Duration of Treatment 2 months Plan of Care Start Date 02/06/19 Plan of Care End Date 04/08/19 Next Visit Focus/Plan Next Note Type Treatment Note Next Visit Plan Discuss re: further aquatic sessions. Work on squatting and lifting mechanics
--- NOTE | 2019-03-16 15:48 | PT.OTN ---
Current Diagnoses Low back pain (03/16/19) Other specified postprocedural states (03/16/19) Physical Therapy Treatment Note PT-OP-A Visit Information Start: 02/06/19 08:09 Freq: Status: Active Protocol: Document 03/16/19 14:10 [facility] (Rec: 03/16/19 15:48 [facility] [id number]) Out-Patient Physical Therapy Visit Information Visit Information Visit Type Treatment Note Visit Start Time 11:18 Visit Stop Time 12:11 Total Visit Minutes 53 Visit Number 03/17 Number of GATE PERSON Visits 0 PT-OP-B Current Condition Start: 02/06/19 08:09 Freq: Status: Active Protocol: Document 02/06/19 10:04 [facility] (Rec: 02/06/19 12:14 [facility] [id number]) Current Condition History of Current Condition Onset Date oct 27 History of Current Condition Pt had disc replacement at L4- 5 on Oct 27, 2018. Pt reports sitting is significantly difficult now and leg pain is about 75% improved since surgery but back pain is still bad with movement. Pt saw MD about 1 week ago with limits of no bending, twisting or lifting. Pt is retiring in 60 days from [employer]. 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 History of injury: Pt reports he had an injury about 3 to 5 years ago when he was doing a 4 person lift for a 450 lb thing at work and then had to close the large lid and jumped off and noticed he tweaked his back> Reports when he got out the shower he felt like he couldn't walk and couldn't get up from floor. He rested in bed per MD recommendation for 3 days. [place] and came back and did PT but did not have relief with it. MD kept dx as mm spasm each time he went in and would give him mm relaxors . He had anohter injury where he was exercising recently and doing broad jumps and felt very uncomfortable in his back which inc his pain. 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 Pt does yoga and elliptical but is painful. He had an SUKHWINDER which gave him small bit of relief. Prior Treatments and Tests [place] but therapist was making him do very painful activities & was not maintaining full focus on his case so he asked to go outside base; mult bouts of PT prior to surgery & injections Treatment Goals Patient/Caregiver Goals hiking longer distances (>1/4 mile) & uphill, be able to sit in class, be able to play with his kids PT-OP-C Subjective Start: 02/06/19 08:09 Freq: Status: Active Protocol: Document 03/16/19 14:10 [facility] (Rec: 03/16/19 15:48 [facility] [id number]) OP-PT Subjective Patient Comments Patient Comments Pt reports he stretched before coming in today PT-OP-F Manual Assessment Start: 02/06/19 08:09 Freq: Status: Active Protocol: Document 02/06/19 10:04 [facility] (Rec: 02/06/19 18:51 [facility] [id number]) Manual Assessments Soft Tissue Assessment Soft Tissue Mobility Assessment Tightness B ES & QL, iliacus, piriformis Joint Mobility Assessment Joint Mobility Assessment Iliac crests equal in height in standing, but LLE longer in supine after bridge; Ant rotation of L innominate present in standing PT-OP-G Mobility & Gait Start: 02/06/19 08:09 Freq: Status: Active Protocol: Document 02/06/19 10:04 [facility] (Rec: 02/06/19 18:51 [facility] [id number]) OP Gait Assessment Comments Gait Comments Pt has dec ant elevation B with gait with significant pelvis ER with push off. Excessive lat leaning over R side w/loud heel strike of LLE indicating dec control PT-OP-J Posture/Palpation/Skin Start: 02/06/19 08:09 Freq: Status: Active Protocol: Document 02/06/19 10:04 [facility] (Rec: 02/06/19 18:51 [facility] [id number]) Posture Evaluation Comments Posture Comments fwd flexed pelvis with inc kyphosis PT-OP-K Range of Motion Start: 02/06/19 08:09 Freq: Status: Active Protocol: Document 02/06/19 10:04 [facility] (Rec: 02/06/19 18:51 [facility] [id number]) Lumbar Spine Range of Motion Lumbar Spine Active Degrees Comments not tested d/t restriction of twisting & bending PT-OP-L Special Tests Start: 02/06/19 08:09 Freq: Status: Active Protocol: Document 02/06/19 10:04 [facility] (Rec: 02/06/19 18:51 [facility] [id number]) Special Tests Lumbar Spine Special Tests Slump Test Results neg B Straight Leg Raise Test Results HS tightness R at 28 deg; L positive at 46 deg PT-OP-M Strength Start: 02/06/19 08:09 Freq: Status: Active Protocol: Document 02/06/19 10:04 [facility] (Rec: 02/06/19 18:51 [facility] [id number]) Hip Strength Hip Manual Muscle Testing Right Comments hip & knee strength not tested d/t inability for pt to sit without significant pain & bracing of UE PT-OP-Q Treatments Start: 02/06/19 08:09 Freq: Status: Active Protocol: Document 03/16/19 14:10 [facility] (Rec: 03/16/19 15:48 [facility] [id number]) Therapeutic Exercises Supine Exercises pelvic tilt Supine Exercise Name post Reps/Minutes 10 diagonal chop Supine Exercise Name for core engagement Standing Exercises lunge Standing Exercise Name stopped d/t pain with RLE back squts Standing Exercise Name standing squats painfree range Reps/Minutes 10 Comments focus on proper knee position Manual Therapy Treatment Soft Tissue Mobilization rectus abdominus Body Location RA Mobilization Type Sustained Pressure Intensity/Depth Moderate Body Position Supine Comments L>R side Joint Mobilizations hip Joint L Direction inf gliding PT-OP-R Modalities Start: 02/06/19 08:09 Freq: Status: Active Protocol: Document 03/16/19 14:10 [facility] (Rec: 03/16/19 15:48 [facility] [id number]) Hot Pack/Cold Pack Treatment Cold Pack Location lumbar Patient Position Supine Treatment Duration (minutes) 10 PT-OP-S Aquatic Treatment Start: 02/24/19 14:30 Freq: Status: Active Protocol: Document 02/24/19 14:23 [facility] (Rec: 02/24/19 14:36 [facility] [id number]) Aquatics Treatment Pool Entry/Exit Pool Entry/Exit Method Stairs Assistance Independent Water Walking side Water Level Chest Level forward Water Level Chest Level Comments no equipment, then holding 1 small bb in front to facilitate abdominal mm Upper Extremity Exercises UE pull downs Details anterior Water Level Chest Level Equipment small barbells Reps/Duration 10x shld flex/ext Details wilfredo, alt Body Position Standing Water Level Chest Level Reps/Duration 10x ea Comments emphasis on core stab hor ab/ad Details wilfredo and unil Water Level Chest Level Reps/Duration 10x ea Comments emphasis on core stab [place] Activities Other Activities water walk forward Deep water stab: iron cross, UE lateral pull downs Deep water hang at wall: 2 min x 4 with deep breathing Equipment large noodle, small barbells PT-OP-T Assessment and Plan Start: 02/06/19 08:09 Freq: Status: Active Protocol: Document 03/16/19 14:10 [facility] (Rec: 03/16/19 15:48 [facility] [id number]) Physical Therapy Assessment Goals strength Short Term Goal (STG) Pt will be indep with therapist directed HEP STG Duration 03/08/19 Central Scheduler Goal (LTG) Pt will tolerate testing and will achieve 4+/5 B LE strength, LPM, VCT & EFT in order to show improved core & functional LE strength. LTG Duration 04/08/19 Two Impairment sitting Short Term Goal (STG) Pt will be able to sit for 5 min with no greater than 2 points increase pain on 10 point scale. STG Duration 03/08/19 Retirement Goal (LTG) Pt will be able to sit 1 hour in order to allow him to sit for his classes LTG Duration 04/08/19 One Impairment gait Central Scheduler Goal (LTG) Pt will be able to amb with good mechanics without cuieng. LTG Duration 04/08/19 Assessment Summary Assessment Improved gait today prior to session. He was able to do pelvic tilts with significant cueing and small range. He had significant restriction in L RF that radiated to LLB region . Physical Therapy Plan Frequency and Duration Frequency of Treatment 2x/Week Duration of Treatment 2 months Plan of Care Start Date 02/06/19 Plan of Care End Date 04/08/19 Next Visit Focus/Plan Next Note Type Treatment Note Next Visit Plan discuss re: further aquatic session, cont to work towards getting core activation
--- NOTE | 2019-03-28 14:22 | PT.OTN ---
Current Diagnoses Low back pain (03/28/19) Other specified postprocedural states (03/28/19) Physical Therapy Treatment Note PT-OP-A Visit Information Start: 02/06/19 08:09 Freq: Status: Active Protocol: Document 03/28/19 14:03 [facility] (Rec: 03/28/19 14:22 [facility] [id number]) Out-Patient Physical Therapy Visit Information Visit Information Visit Type Treatment Note Visit Start Time 11:16 Visit Stop Time 12:01 Total Visit Minutes 45 Visit Number 04/17 Number of OPERATIONAL RISK MANAGER Visits 0 PT-OP-B Current Condition Start: 02/06/19 08:09 Freq: Status: Active Protocol: Document 02/06/19 10:04 [facility] (Rec: 02/06/19 12:14 [facility] [id number]) Current Condition History of Current Condition Onset Date oct 27 History of Current Condition Pt had disc replacement at L4- 5 on Oct 27, 2018. Pt reports sitting is significantly difficult now and leg pain is about 75% improved since surgery but back pain is still bad with movement. Pt saw MD about 1 week ago with limits of no bending, twisting or lifting. Pt is retiring in 60 days from [employer]. 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 History of injury: Pt reports he had an injury about 3 to 5 years ago when he was doing a 4 person lift for a 450 lb thing at work and then had to close the large lid and jumped off and noticed he tweaked his back> Reports when he got out the shower he felt like he couldn't walk and couldn't get up from floor. He rested in bed per MD recommendation for 3 days. [place] and came back and did PT but did not have relief with it. MD kept dx as mm spasm each time he went in and would give him mm relaxors . He had anohter injury where he was exercising recently and doing broad jumps and felt very uncomfortable in his back which inc his pain. 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 Pt does yoga and elliptical but is painful. He had an SUKHWINDER which gave him small bit of relief. Prior Treatments and Tests [place] therapist was making him do very painful activities & was not maintaining full focus on his case so he asked to go outside base; mult bouts of PT prior to surgery & injections Treatment Goals Patient/Caregiver Goals hiking longer distances (>1/4 mile) & uphill, be able to sit in class, be able to play with his kids PT-OP-C Subjective Start: 02/06/19 08:09 Freq: Status: Active Protocol: Document 03/28/19 14:03 [facility] (Rec: 03/28/19 14:22 [facility] [id number]) OP-PT Subjective Patient Comments Patient Comments Pt reports he has stretched today. He has started some meditation and feels like that helps his relax. PT-OP-F Manual Assessment Start: 02/06/19 08:09 Freq: Status: Active Protocol: Document 02/06/19 10:04 [facility] (Rec: 02/06/19 18:51 [facility] [id number]) Manual Assessments Soft Tissue Assessment Soft Tissue Mobility Assessment Tightness B ES & QL, iliacus, piriformis Joint Mobility Assessment Joint Mobility Assessment Iliac crests equal in height in standing, but LLE longer in supine after bridge; Ant rotation of L innominate present in standing PT-OP-G Mobility & Gait Start: 02/06/19 08:09 Freq: Status: Active Protocol: Document 02/06/19 10:04 [facility] (Rec: 02/06/19 18:51 [facility] [id number]) OP Gait Assessment Comments Gait Comments Pt has dec ant elevation B with gait with significant pelvis ER with push off. Excessive lat leaning over R side w/loud heel strike of LLE indicating dec control PT-OP-J Posture/Palpation/Skin Start: 02/06/19 08:09 Freq: Status: Active Protocol: Document 02/06/19 10:04 [facility] (Rec: 02/06/19 18:51 [facility] [id number]) Posture Evaluation Comments Posture Comments fwd flexed pelvis with inc kyphosis PT-OP-K Range of Motion Start: 02/06/19 08:09 Freq: Status: Active Protocol: Document 02/06/19 10:04 [facility] (Rec: 02/06/19 18:51 [facility] [id number]) Lumbar Spine Range of Motion Lumbar Spine Active Degrees Comments not tested d/t restriction of twisting & bending PT-OP-L Special Tests Start: 02/06/19 08:09 Freq: Status: Active Protocol: Document 02/06/19 10:04 [facility] (Rec: 02/06/19 18:51 [facility] [id number]) Special Tests Lumbar Spine Special Tests Slump Test Results neg B Straight Leg Raise Test Results HS tightness R at 28 deg; L positive at 46 deg PT-OP-M Strength Start: 02/06/19 08:09 Freq: Status: Active Protocol: Document 02/06/19 10:04 [facility] (Rec: 02/06/19 18:51 [facility] [id number]) Hip Strength Hip Manual Muscle Testing Right Comments hip & knee strength not tested d/t inability for pt to sit without significant pain & bracing of UE PT-OP-Q Treatments Start: 02/06/19 08:09 Freq: Status: Active Protocol: Document 03/28/19 14:03 [facility] (Rec: 03/28/19 14:22 [facility] [id number]) Therapeutic Exercises Supine Exercises rotation Supine Exercise Name hip rotation in 3 planes Side right Reps/Minutes 10 Comments comfortable ROM pelvic tilt Supine Exercise Name post Reps/Minutes 15 Diphragmatic breathing Supine Exercise Name with progression to wavy gravy exercise for focus into different quadrants Manual Therapy Treatment Soft Tissue Mobilization scar tissue Body Location scar tissue mobs Mobilization Type Myofascial Release Rolling Strumming Sustained Pressure psoas Body Location L Mobilization Type Sustained Pressure Intensity/Depth Deep Body Position Supine Comments w/deep breathing visceral mobs Body Location L to R with deep breathing Mobilization Type Sustained Pressure Intensity/Depth Superficial iliacus Body Location L Mobilization Type Strumming Sustained Pressure Comments supine PT-OP-R Modalities Start: 02/06/19 08:09 Freq: Status: Active Protocol: Document 03/16/19 14:10 [facility] (Rec: 03/16/19 15:48 [facility] [id number]) Hot Pack/Cold Pack Treatment Cold Pack Location lumbar Patient Position Supine Treatment Duration (minutes) 10 PT-OP-S Aquatic Treatment Start: 02/24/19 14:30 Freq: Status: Active Protocol: Document 02/24/19 14:23 [facility] (Rec: 02/24/19 14:36 [facility] [id number]) Aquatics Treatment Pool Entry/Exit Pool Entry/Exit Method Stairs Assistance Independent Water Walking side Water Level Chest Level forward Water Level Chest Level Comments no equipment, then holding 1 small bb in front to facilitate abdominal mm Upper Extremity Exercises UE pull downs Details anterior Water Level Chest Level Equipment small barbells Reps/Duration 10x shld flex/ext Details wilfredo, alt Body Position Standing Water Level Chest Level Reps/Duration 10x ea Comments emphasis on core stab hor ab/ad Details wilfredo and unil Water Level Chest Level Reps/Duration 10x ea Comments emphasis on core stab [place] Activities Other Activities water walk forward Deep water stab: iron cross, UE lateral pull downs Deep water hang at wall: 2 min x 4 with deep breathing Equipment large noodle, small barbells PT-OP-T Assessment and Plan Start: 02/06/19 08:09 Freq: Status: Active Protocol: Document 03/28/19 14:03 [facility] (Rec: 03/28/19 14:22 [facility] [id number]) Physical Therapy Assessment Goals strength Short Term Goal (STG) Pt will be indep with therapist directed HEP STG Duration 03/08/19 Rail Car Repairer Goal (LTG) Pt will tolerate testing and will achieve 4+/5 B LE strength, LPM, VCT & EFT in order to show improved core & functional LE strength. LTG Duration 04/08/19 Two Impairment sitting Short Term Goal (STG) Pt will be able to sit for 5 min with no greater than 2 points increase pain on 10 point scale. STG Duration 03/08/19 Longterm Goal (LTG) Pt will be able to sit 1 hour in order to allow him to sit for his classes LTG Duration 04/08/19 One Impairment gait Longterm Goal (LTG) Pt will be able to amb with good mechanics without cuieng. LTG Duration 04/08/19 Assessment Summary Assessment Pt had improved passive hip flex in L hip after manual therapy to about 90 deg painfree range where it was 70 deg prior. Pain radiates to L SI with L psoas work. Physical Therapy Plan Frequency and Duration Frequency of Treatment 2x/Week Duration of Treatment 2 months Plan of Care Start Date 02/06/19 Plan of Care End Date 04/08/19 Next Visit Focus/Plan Next Note Type Treatment Note Next Visit Plan Look at glutes & sacrum & coccyx
--- NOTE | 2019-03-30 14:23 | PT.OTN ---
Current Diagnoses Low back pain (03/30/19) Other specified postprocedural states (03/30/19) Physical Therapy Treatment Note PT-OP-A Visit Information Start: 02/06/19 08:09 Freq: Status: Active Protocol: Document 03/30/19 14:09 [facility] (Rec: 03/30/19 14:22 [facility] [id number]) Out-Patient Physical Therapy Visit Information Visit Information Visit Type Treatment Note Visit Start Time 11:16 Visit Stop Time 12:16 Total Visit Minutes 55 Visit Number 05/18 Number of GI TECHNICIAN Visits 0 PT-OP-B Current Condition Start: 02/06/19 08:09 Freq: Status: Active Protocol: Document 02/06/19 10:04 [facility] (Rec: 02/06/19 12:14 [facility] [id number]) Current Condition History of Current Condition Onset Date oct 27 History of Current Condition Pt had disc replacement at L4- 5 on Oct 27, 2018. Pt reports sitting is significantly difficult now and leg pain is about 75% improved since surgery but back pain is still bad with movement. Pt saw MD about 1 week ago with limits of no bending, twisting or lifting. Pt is retiring in 60 days from [employer]. 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 History of injury: Pt reports he had an injury about 3 to 5 years ago when he was doing a 4 person lift for a 450 lb thing at work and then had to close the large lid and jumped off and noticed he tweaked his back> Reports when he got out the shower he felt like he couldn't walk and couldn't get up from floor. He rested in bed per MD recommendation for 3 days. [place] and came back and did PT but did not have relief with it. MD kept dx as mm spasm each time he went in and would give him mm relaxors . He had anohter injury where he was exercising recently and doing broad jumps and felt very uncomfortable in his back which inc his pain. 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 Pt does yoga and elliptical but is painful. He had an SUKHWINDER which gave him small bit of relief. Prior Treatments and Tests [place] but therapist was making him do very painful activities & was not maintaining full focus on his case so he asked to go outside base; mult bouts of PT prior to surgery & injections Treatment Goals Patient/Caregiver Goals hiking longer distances (>1/4 mile) & uphill, be able to sit in class, be able to play with his kids PT-OP-C Subjective Start: 02/06/19 08:09 Freq: Status: Active Protocol: Document 03/30/19 14:09 [facility] (Rec: 03/30/19 14:22 [facility] [id number]) OP-PT Subjective Patient Comments Patient Comments Pt reports he has a lot going on. he has tried the breathing exercises but they are still difficult PT-OP-F Manual Assessment Start: 02/06/19 08:09 Freq: Status: Active Protocol: Document 02/06/19 10:04 [facility] (Rec: 02/06/19 18:51 [facility] [id number]) Manual Assessments Soft Tissue Assessment Soft Tissue Mobility Assessment Tightness B ES & QL, iliacus, piriformis Joint Mobility Assessment Joint Mobility Assessment Iliac crests equal in height in standing, but LLE longer in supine after bridge; Ant rotation of L innominate present in standing PT-OP-G Mobility & Gait Start: 02/06/19 08:09 Freq: Status: Active Protocol: Document 02/06/19 10:04 [facility] (Rec: 02/06/19 18:51 [facility] [id number]) OP Gait Assessment Comments Gait Comments Pt has dec ant elevation B with gait with significant pelvis ER with push off. Excessive lat leaning over R side w/loud heel strike of LLE indicating dec control PT-OP-J Posture/Palpation/Skin Start: 02/06/19 08:09 Freq: Status: Active Protocol: Document 02/06/19 10:04 [facility] (Rec: 02/06/19 18:51 [facility] [id number]) Posture Evaluation Comments Posture Comments fwd flexed pelvis with inc kyphosis PT-OP-K Range of Motion Start: 02/06/19 08:09 Freq: Status: Active Protocol: Document 02/06/19 10:04 [facility] (Rec: 02/06/19 18:51 [facility] [id number]) Lumbar Spine Range of Motion Lumbar Spine Active Degrees Comments not tested d/t restriction of twisting & bending PT-OP-L Special Tests Start: 02/06/19 08:09 Freq: Status: Active Protocol: Document 02/06/19 10:04 [facility] (Rec: 02/06/19 18:51 [facility] [email or web address]) Special Tests Lumbar Spine Special Tests Slump Test Results neg B Straight Leg Raise Test Results HS tightness R at 28 deg; L positive at 46 deg PT-OP-M Strength Start: 02/06/19 08:09 Freq: Status: Active Protocol: Document 02/06/19 10:04 [facility] (Rec: 02/06/19 18:51 [facility] [id number]) Hip Strength Hip Manual Muscle Testing Right Comments hip & knee strength not tested d/t inability for pt to sit without significant pain & bracing of UE PT-OP-Q Treatments Start: 02/06/19 08:09 Freq: Status: Active Protocol: Document 03/30/19 14:09 [facility] (Rec: 03/30/19 14:22 [facility] [id number]) Therapeutic Exercises Supine Exercises leg ext Supine Exercise Name knee ext with pillow under R Knee with UE chop pattern to faciliate core Side right Reps/Minutes 10 Comments also tried with quad set int rolled towel SKTC Supine Exercise Name manul hold Side right Manual Therapy Treatment Soft Tissue Mobilization ES Body Location B down to sacral ita Mobilization Type Rolling Intensity/Depth Superficial Body Position Sidelying piriformis & glutes Body Location R Mobilization Type Rolling Sustained Pressure Intensity/Depth Moderate Body Position Sidelying Joint Mobilizations hip Joint inf & distractive glide R PT-OP-R Modalities Start: 02/06/19 08:09 Freq: Status: Active Protocol: Document 03/30/19 14:09 [facility] (Rec: 03/30/19 14:22 [facility] [id number]) Hot Pack/Cold Pack Treatment Cold Pack Location lumbar Patient Position Supine Treatment Duration (minutes) 10 PT-OP-S Aquatic Treatment Start: 02/24/19 14:30 Freq: Status: Active Protocol: Document 02/24/19 14:23 [facility] (Rec: 02/24/19 14:36 [facility] [id number]) Aquatics Treatment Pool Entry/Exit Pool Entry/Exit Method Stairs Assistance Independent Water Walking side Water Level Chest Level forward Water Level Chest Level Comments no equipment, then holding 1 small bb in front to facilitate abdominal mm Upper Extremity Exercises UE pull downs Details anterior Water Level Chest Level Equipment small barbells Reps/Duration 10x shld flex/ext Details wilfredo, alt Body Position Standing Water Level Chest Level Reps/Duration 10x ea Comments emphasis on core stab hor ab/ad Details wilfredo and unil Water Level Chest Level Reps/Duration 10x ea Comments emphasis on core stab [place] Activities Other Activities water walk forward Deep water stab: iron cross, UE lateral pull downs Deep water hang at wall: 2 min x 4 with deep breathing Equipment large noodle, small barbells PT-OP-T Assessment and Plan Start: 02/06/19 08:09 Freq: Status: Active Protocol: Document 03/30/19 14:09 [facility] (Rec: 03/30/19 14:22 [facility] [id number]) Physical Therapy Assessment Goals strength Short Term Goal (STG) Pt will be indep with therapist directed HEP STG Duration 03/08/19 Operation Agent Goal (LTG) Pt will tolerate testing and will achieve 4+/5 B LE strength, LPM, VCT & EFT in order to show improved core & functional LE strength. LTG Duration 04/08/19 Two Impairment sitting Short Term Goal (STG) Pt will be able to sit for 5 min with no greater than 2 points increase pain on 10 point scale. STG Duration 03/08/19 Operation Agent Goal (LTG) Pt will be able to sit 1 hour in order to allow him to sit for his classes LTG Duration 04/08/19 One Impairment gait Care Home Goal (LTG) Pt will be able to amb with good mechanics without cuieng. LTG Duration 04/08/19 Assessment Summary Assessment Pt had improved tolerance to hip flex on R with distractive forces and inf gliding during stretch. He cont to have difficulty getting into full knee ext and hip into neutral without pain. Educated that this will affect his gait and push off d/t this lack of movement. Physical Therapy Plan Frequency and Duration Frequency of Treatment 2x/Week Duration of Treatment 2 months Plan of Care Start Date 02/06/19 Plan of Care End Date 04/08/19 Next Visit Focus/Plan Next Note Type Treatment Note Next Visit Plan work on glutes & sacrum & coccyx
--- NOTE | 2019-04-04 14:52 | PT.OTN ---
Current Diagnoses Low back pain (04/04/19) Other specified postprocedural states (04/04/19) Physical Therapy Treatment Note PT-OP-A Visit Information Start: 02/06/19 08:09 Freq: Status: Active Protocol: Document 04/04/19 14:26 [facility] (Rec: 04/04/19 14:51 [facility] [id number]) Out-Patient Physical Therapy Visit Information Visit Information Visit Type Treatment Note Visit Start Time 11:18 Visit Stop Time 12:03 Total Visit Minutes 45 Visit Number 06/17 Number of NON DESTRUCTIVE TESTING ENGINEER Visits 0 PT-OP-B Current Condition Start: 02/06/19 08:09 Freq: Status: Active Protocol: Document 02/06/19 10:04 [facility] (Rec: 02/06/19 12:14 [facility] [id number]) Current Condition History of Current Condition Onset Date oct 27 History of Current Condition Pt had disc replacement at L4- 5 on Oct 27, 2018. Pt reports sitting is significantly difficult now and leg pain is about 75% improved since surgery but back pain is still bad with movement. Pt saw MD about 1 week ago with limits of no bending, twisting or lifting. Pt is retiring in 60 days from [employer]. 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 History of injury: Pt reports he had an injury about 3 to 5 years ago when he was doing a 4 person lift for a 450 lb thing at work and then had to close the large lid and jumped off and noticed he tweaked his back> Reports when he got out the shower he felt like he couldn't walk and couldn't get up from floor. He rested in bed per MD recommendation for 3 days. [place] and came back and did PT but did not have relief with it. MD kept dx as mm spasm each time he went in and would give him mm relaxors . He had anohter injury where he was exercising recently and doing broad jumps and felt very uncomfortable in his back which inc his pain. 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 Pt does yoga and elliptical but is painful. He had an SUKHWINDER which gave him small bit of relief. Prior Treatments and Tests [place] therapist was making him do very painful activities & was not maintaining full focus on his case so he asked to go outside base; mult bouts of PT prior to surgery & injections Treatment Goals Patient/Caregiver Goals hiking longer distances (>1/4 mile) & uphill, be able to sit in class, be able to play with his kids PT-OP-C Subjective Start: 02/06/19 08:09 Freq: Status: Active Protocol: Document 04/04/19 14:26 [facility] (Rec: 04/04/19 14:52 [facility] [id number]) OP-PT Subjective Patient Comments Patient Comments Pt reports he has been doing elliptical for 1 hour with only 2-3 point inc in pain and reports inc pain for an hour or 2 after workout session PT-OP-F Manual Assessment Start: 02/06/19 08:09 Freq: Status: Active Protocol: Document 02/06/19 10:04 [facility] (Rec: 02/06/19 18:51 [facility] [id number]) Manual Assessments Soft Tissue Assessment Soft Tissue Mobility Assessment Tightness B ES & QL, iliacus, piriformis Joint Mobility Assessment Joint Mobility Assessment Iliac crests equal in height in standing, but LLE longer in supine after bridge; Ant rotation of L innominate present in standing PT-OP-G Mobility & Gait Start: 02/06/19 08:09 Freq: Status: Active Protocol: Document 02/06/19 10:04 [facility] (Rec: 02/06/19 18:51 [facility] [id number]) OP Gait Assessment Comments Gait Comments Pt has dec ant elevation B with gait with significant pelvis ER with push off. Excessive lat leaning over R side w/loud heel strike of LLE indicating dec control PT-OP-J Posture/Palpation/Skin Start: 02/06/19 08:09 Freq: Status: Active Protocol: Document 02/06/19 10:04 [facility] (Rec: 02/06/19 18:51 [facility] [id number]) Posture Evaluation Comments Posture Comments fwd flexed pelvis with inc kyphosis PT-OP-K Range of Motion Start: 02/06/19 08:09 Freq: Status: Active Protocol: Document 02/06/19 10:04 [facility] (Rec: 02/06/19 18:51 [facility] [id number]) Lumbar Spine Range of Motion Lumbar Spine Active Degrees Comments not tested d/t restriction of twisting & bending PT-OP-L Special Tests Start: 02/06/19 08:09 Freq: Status: Active Protocol: Document 02/06/19 10:04 [facility] (Rec: 02/06/19 18:51 [facility] [id number]) Special Tests Lumbar Spine Special Tests Slump Test Results neg B Straight Leg Raise Test Results HS tightness R at 28 deg; L positive at 46 deg PT-OP-M Strength Start: 02/06/19 08:09 Freq: Status: Active Protocol: Document 02/06/19 10:04 [facility] (Rec: 02/06/19 18:51 [facility] [id number]) Hip Strength Hip Manual Muscle Testing Right Comments hip & knee strength not tested d/t inability for pt to sit without significant pain & bracing of UE PT-OP-Q Treatments Start: 02/06/19 08:09 Freq: Status: Active Protocol: Document 04/04/19 14:26 [facility] (Rec: 04/04/19 14:51 [facility] [id number]) Therapeutic Exercises Supine Exercises leg ext Supine Exercise Name knee ext with pillow under R Knee Side right Reps/Minutes 10 Comments quad set into pillow Manual Therapy Treatment Soft Tissue Mobilization piriformis & glutes Body Location L Mobilization Type Rolling Sustained Pressure Intensity/Depth Moderate Body Position Sidelying iliacus Body Location R Mobilization Type Strumming Sustained Pressure Comments supine Joint Mobilizations hip Joint inf & distractive glide R PT-OP-R Modalities Start: 02/06/19 08:09 Freq: Status: Active Protocol: Document 03/30/19 14:09 [facility] (Rec: 03/30/19 14:22 [facility] [id number]) Hot Pack/Cold Pack Treatment Cold Pack Location lumbar Patient Position Supine Treatment Duration (minutes) 10 PT-OP-S Aquatic Treatment Start: 02/24/19 14:30 Freq: Status: Active Protocol: Document 02/24/19 14:23 [facility] (Rec: 02/24/19 14:36 [facility] [id number]) Aquatics Treatment Pool Entry/Exit Pool Entry/Exit Method Stairs Assistance Independent Water Walking side Water Level Chest Level forward Water Level Chest Level Comments no equipment, then holding 1 small bb in front to facilitate abdominal mm Upper Extremity Exercises UE pull downs Details anterior Water Level Chest Level Equipment small barbells Reps/Duration 10x shld flex/ext Details iwlfredo, alt Body Position Standing Water Level Chest Level Reps/Duration 10x ea Comments emphasis on core stab hor ab/ad Details wilfredo and unil Water Level Chest Level Reps/Duration 10x ea Comments emphasis on core stab [place] Activities Other Activities water walk forward Deep water stab: iron cross, UE lateral pull downs Deep water hang at wall: 2 min x 4 with deep breathing Equipment large noodle, small barbells PT-OP-T Assessment and Plan Start: 02/06/19 08:09 Freq: Status: Active Protocol: Document 04/04/19 14:26 [facility] (Rec: 04/04/19 14:51 [facility] [id number]) Physical Therapy Assessment Goals strength Short Term Goal (STG) Pt will be indep with therapist directed HEP STG Duration 03/08/19 Care Home Goal (LTG) Pt will tolerate testing and will achieve 4+/5 B LE strength, LPM, VCT & EFT in order to show improved core & functional LE strength. LTG Duration 04/08/19 Two Impairment sitting Short Term Goal (STG) Pt will be able to sit for 5 min with no greater than 2 points increase pain on 10 point scale. STG Duration 03/08/19 Language Assistant Goal (LTG) Pt will be able to sit 1 hour in order to allow him to sit for his classes LTG Duration 04/08/19 One Impairment gait Care Home Goal (LTG) Pt will be able to amb with good mechanics without cuieng. LTG Duration 04/08/19 Assessment Summary Assessment Pt able to improve hip ext to lacking about 10 deg after manual but started with lacking about 20 deg initially . He is able to spend small amounts of time in sitting when transitioning vs quickly transiitioning out of sitting immediately. Physical Therapy Plan Frequency and Duration Frequency of Treatment 2x/Week Duration of Treatment 2 months Plan of Care Start Date 02/06/19 Plan of Care End Date 04/08/19 Next Visit Focus/Plan Next Note Type Progress Note Next Visit Plan cont to work glutes B & into hip ext of R for improvement in gait
--- NOTE | 2019-04-06 18:24 | PT.OTN ---
Current Diagnoses Low back pain (04/06/19) Other specified postprocedural states (04/06/19) Physical Therapy Treatment Note PT-OP-A Visit Information Start: 02/06/19 08:09 Freq: Status: Active Protocol: Document 04/06/19 18:22 [facility] (Rec: 04/06/19 18:24 [facility] [id number]) Out-Patient Physical Therapy Visit Information Visit Information Visit Type Treatment Note Visit Start Time 11:18 Visit Stop Time 12:03 Total Visit Minutes 45 Visit Number 07/18 Number of JEWEL BLOCKER AND SAWYER Visits 0 PT-OP-B Current Condition Start: 02/06/19 08:09 Freq: Status: Active Protocol: Document 02/06/19 10:04 [facility] (Rec: 02/06/19 12:14 [facility] [id number]) Current Condition History of Current Condition Onset Date oct 27 History of Current Condition Pt had disc replacement at L4- 5 on Oct 27, 2018. Pt reports sitting is significantly difficult now and leg pain is about 75% improved since surgery but back pain is still bad with movement. Pt saw MD about 1 week ago with limits of no bending, twisting or lifting. Pt is retiring in 60 days from [employer]. 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 History of injury: Pt reports he had an injury about 3 to 5 years ago when he was doing a 4 person lift for a 450 lb thing at work and then had to close the large lid and jumped off and noticed he tweaked his back> Reports when he got out the shower he felt like he couldn't walk and couldn't get up from floor. He rested in bed per MD recommendation for 3 days. [place] did [place] and came back and did PT but did not have relief with it. MD kept dx as mm spasm each time he went in and would give him mm relaxors . He had anohter injury where he was exercising recently and doing broad jumps and felt very uncomfortable in his back which inc his pain. 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 Pt does yoga and elliptical but is painful. He had an SUKHWINDER which gave him small bit of relief. Prior Treatments and Tests [place] but therapist was making him do very painful activities & was not maintaining full focus on his case so he asked to go outside base; mult bouts of PT prior to surgery & injections Treatment Goals Patient/Caregiver Goals hiking longer distances (>1/4 mile) & uphill, be able to sit in class, be able to play with his kids PT-OP-C Subjective Start: 02/06/19 08:09 Freq: Status: Active Protocol: Document 04/06/19 18:22 [facility] (Rec: 04/06/19 18:24 [facility] [id number]) OP-PT Subjective Patient Comments Patient Comments Pt reports he feels like his has overdone it with his move PT-OP-F Manual Assessment Start: 02/06/19 08:09 Freq: Status: Active Protocol: Document 02/06/19 10:04 [facility] (Rec: 02/06/19 18:51 [facility] [id number]) Manual Assessments Soft Tissue Assessment Soft Tissue Mobility Assessment Tightness B ES & QL, iliacus, piriformis Joint Mobility Assessment Joint Mobility Assessment Iliac crests equal in height in standing, but LLE longer in supine after bridge; Ant rotation of L innominate present in standing PT-OP-G Mobility & Gait Start: 02/06/19 08:09 Freq: Status: Active Protocol: Document 02/06/19 10:04 [facility] (Rec: 02/06/19 18:51 [facility] [id number]) OP Gait Assessment Comments Gait Comments Pt has dec ant elevation B with gait with significant pelvis ER with push off. Excessive lat leaning over R side w/loud heel strike of LLE indicating dec control PT-OP-J Posture/Palpation/Skin Start: 02/06/19 08:09 Freq: Status: Active Protocol: Document 02/06/19 10:04 [facility] (Rec: 02/06/19 18:51 [facility] [id number]) Posture Evaluation Comments Posture Comments fwd flexed pelvis with inc kyphosis PT-OP-K Range of Motion Start: 02/06/19 08:09 Freq: Status: Active Protocol: Document 02/06/19 10:04 [facility] (Rec: 02/06/19 18:51 [facility] [id number]) Lumbar Spine Range of Motion Lumbar Spine Active Degrees Comments not tested d/t restriction of twisting & bending PT-OP-L Special Tests Start: 02/06/19 08:09 Freq: Status: Active Protocol: Document 02/06/19 10:04 [facility] (Rec: 02/06/19 18:51 [facility] [email or web address]) Special Tests Lumbar Spine Special Tests Slump Test Results neg B Straight Leg Raise Test Results HS tightness R at 28 deg; L positive at 46 deg PT-OP-M Strength Start: 02/06/19 08:09 Freq: Status: Active Protocol: Document 02/06/19 10:04 [facility] (Rec: 02/06/19 18:51 [facility] [id number]) Hip Strength Hip Manual Muscle Testing Right Comments hip & knee strength not tested d/t inability for pt to sit without significant pain & bracing of UE PT-OP-Q Treatments Start: 02/06/19 08:09 Freq: Status: Active Protocol: Document 04/06/19 18:22 [facility] (Rec: 04/06/19 18:24 [facility] [id number]) Manual Therapy Treatment Soft Tissue Mobilization piriformis & glutes Body Location L Mobilization Type Rolling Sustained Pressure Intensity/Depth Moderate Body Position Sidelying psoas Body Location L Mobilization Type Sustained Pressure Intensity/Depth Deep Body Position Supine Comments w/deep breathing rectus abdominus Body Location RA Mobilization Type Sustained Pressure Intensity/Depth Moderate Body Position Supine Comments R>L side PT-OP-R Modalities Start: 02/06/19 08:09 Freq: Status: Active Protocol: Document 03/30/19 14:09 [facility] (Rec: 03/30/19 14:22 [facility] [id number]) Hot Pack/Cold Pack Treatment Cold Pack Location lumbar Patient Position Supine Treatment Duration (minutes) 10 PT-OP-S Aquatic Treatment Start: 02/24/19 14:30 Freq: Status: Active Protocol: Document 02/24/19 14:23 [facility] (Rec: 02/24/19 14:36 [facility] [id number]) Aquatics Treatment Pool Entry/Exit Pool Entry/Exit Method Stairs Assistance Independent Water Walking side Water Level Chest Level forward Water Level Chest Level Comments no equipment, then holding 1 small bb in front to facilitate abdominal mm Upper Extremity Exercises UE pull downs Details anterior Water Level Chest Level Equipment small barbells Reps/Duration 10x shld flex/ext Details wilfredo, alt Body Position Standing Water Level Chest Level Reps/Duration 10x ea Comments emphasis on core stab hor ab/ad Details wilfredo and unil Water Level Chest Level Reps/Duration 10x ea Comments emphasis on core stab Superior Activities Other Activities water walk forward Deep water stab: iron cross, UE lateral pull downs Deep water hang at wall: 2 min x 4 with deep breathing Equipment large noodle, small barbells PT-OP-T Assessment and Plan Start: 02/06/19 08:09 Freq: Status: Active Protocol: Document 04/06/19 18:22 [facility] (Rec: 04/06/19 18:24 [facility] [id number]) Physical Therapy Assessment Goals strength Short Term Goal (STG) Pt will be indep with therapist directed HEP STG Duration 03/08/19 Sash Clamp Operator Goal (LTG) Pt will tolerate testing and will achieve 4+/5 B LE strength, LPM, VCT & EFT in order to show improved core & functional LE strength. LTG Duration 04/08/19 Two Impairment sitting Short Term Goal (STG) Pt will be able to sit for 5 min with no greater than 2 points increase pain on 10 point scale. STG Duration 03/08/19 Sash Clamp Operator Goal (LTG) Pt will be able to sit 1 hour in order to allow him to sit for his classes LTG Duration 04/08/19 One Impairment gait Skilled Nursing Goal (LTG) Pt will be able to amb with good mechanics without cuieng. LTG Duration 04/08/19 Assessment Summary Assessment Focus was on scar tissue work and ant hip flexor mobilization d/t pt being flared up today. Focused on painful regions to dec pain from pt recent moving. Physical Therapy Plan Frequency and Duration Frequency of Treatment 2x/Week Duration of Treatment 2 months Plan of Care Start Date 02/06/19 Plan of Care End Date 04/08/19 Next Visit Focus/Plan Next Note Type Progress Note Next Visit Plan cont to work glutes B & into hip ext of R for improvement in gait
--- NOTE | 2019-04-11 19:13 | PT.OPPOC ---
Current Diagnoses Low back pain (04/11/19) Other specified postprocedural states (04/11/19) Provider Visit Care Team Role Provider Type Maribell Francisco Attending Provider Non-Staff Other Providers Primary Care Provider Specialty: Medical Address: [address], [place], [address] Email: Plan Of Care PT-OP-T Assessment and Plan Start: 02/06/19 08:09 Freq: Status: Active Protocol: Document 04/11/19 13:34 [facility] (Rec: 04/11/19 15:58 [facility] [id number]) Physical Therapy Assessment Goals strength Short Term Goal (STG) Pt will be indep with therapist directed HEP STG Duration 03/08/19 Senior Care Goal (LTG) Pt will tolerate testing and will achieve 4+/5 B LE strength, LPM, VCT & EFT in order to show improved core & functional LE strength. 8/6-tolerated testing and is improving in strength. Still weak with both directions AP LTG Duration 05/12/19 Two Impairment sitting Short Term Goal (STG) Pt will be able to sit for 5 min with no greater than 2 points increase pain on 10 point scale. 8/6 able to sit that long at sessionb ut notable inc pain. STG Duration 05/07/19 Senior Care Goal (LTG) Pt will be able to sit 1 hour in order to allow him to sit for his classes LTG Duration 05/12/19 One Impairment gait Senior Care Goal (LTG) Pt will be able to amb with good mechanics without cuieng. 8/6-improved but still deficits with RLE push off LTG Duration 05/12/19 Assessment Summary Assessment Pt has made some progress with PT but progress is limited. He is now able to sit with less UE support when in PT session today, but cont to have signfiicant inc in pain with this extended sitting. Pt has been compliant with HEP and HEP has been to focus on hip ROM, core activiation & strengthening. He cont to have dec R hip ext and tightness through ant hip flexor & abdomenal structurs including viscera, rectus abdominus and psoas B, which have improved with treatment. Pt has pain specifically at L SI and has inc in pain with palpation. Gentle mobilizations and MET have been performed to try to improve this, but have not assisted in pain relief or motion, but instead aggrevated pt, so have been avoided. Pt is very motivated and cooperative with PT, but cont to have significant ADL limitiations (unable to flex) due to significant amounts of pain. Pt will be d/c from PT next session from this clinic d/t pt moving to a new city about 1 hour away. Recommendations have been given for PTs closer to his new home and pt encouraged to follow up with these therapists. Physical Therapy Plan Frequency and Duration Frequency of Treatment 2x/Week Duration of Treatment 1 month Plan of Care Start Date 04/11/19 Plan of Care End Date 05/12/19 Therapeutic Interventions Therapeutic Interventions Aquatic Therapy Balance Training Gait Training Home Exercise Program Joint Mobilizations Manual Therapy Neuromuscular Re-education Patient/Caregiver Education Self-Care/Home Management Soft Tissue Mobilization Taping Therapeutic Activities Therapeutic Exercises Modalities Cold Pack/Ice Massage Electric Stimulation Hot Packs Traction- Mechanical Ultrasound Next Visit Focus/Plan Next Note Type Discharge Summary Next Visit Plan Cont to work on knee ext& segmental flex & rotation Plan of Care Dates Plan of Care Start Date 04/11/19 Plan of Care End Date 05/12/19 Please Sign and Return: I have reviewed this Plan of Care and certify that the skilled therapy services above are required to meet the patient?s needs. Physician Signature Date Printed Name and Credentials Clinical Instructor Signature Printed Name and Credentials
--- NOTE | 2019-04-11 19:13 | PT.OTN ---
Current Diagnoses Low back pain (04/11/19) Other specified postprocedural states (04/11/19) Physical Therapy Treatment Note PT-OP-A Visit Information Start: 02/06/19 08:09 Freq: Status: Active Protocol: Document 04/11/19 13:34 [facility] (Rec: 04/11/19 15:58 [facility] [id number]) Out-Patient Physical Therapy Visit Information Visit Information Visit Type Progress Note Visit Start Time 11:16 Visit Stop Time 12:11 Total Visit Minutes 55 Visit Number 08/18 Number of FINAL INSPECTOR Visits 0 PT-OP-B Current Condition Start: 02/06/19 08:09 Freq: Status: Active Protocol: Document 02/06/19 10:04 [facility] (Rec: 02/06/19 12:14 [facility] [id number]) Current Condition History of Current Condition Onset Date oct 27 History of Current Condition Pt had disc replacement at L4- 5 on Oct 27, 2018. Pt reports sitting is significantly difficult now and leg pain is about 75% improved since surgery but back pain is still bad with movement. Pt saw MD about 1 week ago with limits of no bending, twisting or lifting. Pt is retiring in 60 days from [employer]. 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 History of injury: Pt reports he had an injury about 3 to 5 years ago when he was doing a 4 person lift for a 450 lb thing at work and then had to close the large lid and jumped off and noticed he tweaked his back> Reports when he got out the shower he felt like he couldn't walk and couldn't get up from floor. He rested in bed per MD recommendation for 3 days. [place] and came back and did PT but did not have relief with it. MD kept dx as mm spasm each time he went in and would give him mm relaxors . He had anohter injury where he was exercising recently and doing broad jumps and felt very uncomfortable in his back which inc his pain. 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 Pt does yoga and elliptical but is painful. He had an SUKHWINDER which gave him small bit of relief. Prior Treatments and Tests [place] therapist was making him do very painful activities & was not maintaining full focus on his case so he asked to go outside base; mult bouts of PT prior to surgery & injections Treatment Goals Patient/Caregiver Goals hiking longer distances (>1/4 mile) & uphill, be able to sit in class, be able to play with his kids PT-OP-C Subjective Start: 02/06/19 08:09 Freq: Status: Active Protocol: Document 04/11/19 13:34 [facility] (Rec: 04/11/19 15:58 [facility] [id number]) OP-PT Subjective Patient Comments Patient Comments Pt reports he was sore after moving. Reports pain in his L scapular region and ant ribcage that when he saw his MD yesterday, she thought was muscular. He feels like he has improved some but is still frustrated that he cannot sit with out very high inc of pain . Patient Reported Progress Improving PT-OP-F Manual Assessment Start: 02/06/19 08:09 Freq: Status: Active Protocol: Document 02/06/19 10:04 [facility] (Rec: 02/06/19 18:51 [facility] [id number]) Manual Assessments Soft Tissue Assessment Soft Tissue Mobility Assessment Tightness B ES & QL, iliacus, piriformis Joint Mobility Assessment Joint Mobility Assessment Iliac crests equal in height in standing, but LLE longer in supine after bridge; Ant rotation of L innominate present in standing PT-OP-G Mobility & Gait Start: 02/06/19 08:09 Freq: Status: Active Protocol: Document 02/06/19 10:04 [facility] (Rec: 02/06/19 18:51 [facility] [id number]) OP Gait Assessment Comments Gait Comments Pt has dec ant elevation B with gait with significant pelvis ER with push off. Excessive lat leaning over R side w/loud heel strike of LLE indicating dec control PT-OP-J Posture/Palpation/Skin Start: 02/06/19 08:09 Freq: Status: Active Protocol: Document 02/06/19 10:04 [facility] (Rec: 02/06/19 18:51 [facility] [id number]) Posture Evaluation Comments Posture Comments fwd flexed pelvis with inc kyphosis PT-OP-K Range of Motion Start: 02/06/19 08:09 Freq: Status: Active Protocol: Document 02/06/19 10:04 [facility] (Rec: 02/06/19 18:51 [facility] [id number]) Lumbar Spine Range of Motion Lumbar Spine Active Degrees Comments not tested d/t restriction of twisting & bending PT-OP-L Special Tests Start: 02/06/19 08:09 Freq: Status: Active Protocol: Document 02/06/19 10:04 [facility] (Rec: 02/06/19 18:51 [facility] [id number]) Special Tests Lumbar Spine Special Tests Slump Test Results neg B Straight Leg Raise Test Results HS tightness R at 28 deg; L positive at 46 deg PT-OP-M Strength Start: 02/06/19 08:09 Freq: Status: Active Protocol: Document 02/06/19 10:04 [facility] (Rec: 02/06/19 18:51 [facility] [id number]) Hip Strength Hip Manual Muscle Testing Right Comments hip & knee strength not tested d/t inability for pt to sit without significant pain & bracing of UE PT-OP-Q Treatments Start: 02/06/19 08:09 Freq: Status: Active Protocol: Document 04/11/19 13:34 [facility] (Rec: 04/11/19 15:58 [facility] [id number]) Therapeutic Exercises Supine Exercises leg ext Supine Exercise Name knee ext with pillow under R Knee Side right Reps/Minutes 10 Comments quad set into pillow Sitting Exercises flex Sitting Exercise Name segmental Reps/Minutes 2x Manual Therapy Treatment Soft Tissue Mobilization piriformis & glutes Body Location L Mobilization Type Rolling Sustained Pressure Intensity/Depth Moderate Body Position Sidelying iliacus Body Location R Mobilization Type Strumming Sustained Pressure Comments supine Joint Mobilizations hip Joint inf & distractive glide R PT-OP-R Modalities Start: 02/06/19 08:09 Freq: Status: Active Protocol: Document 04/11/19 13:34 [facility] (Rec: 04/11/19 15:58 [facility] [id number]) Hot Pack/Cold Pack Treatment Cold Pack Location lumbar Patient Position Supine Treatment Duration (minutes) 10 PT-OP-S Aquatic Treatment Start: 02/24/19 14:30 Freq: Status: Active Protocol: Document 02/24/19 14:23 [facility] (Rec: 02/24/19 14:36 [facility] [id number]) Aquatics Treatment Pool Entry/Exit Pool Entry/Exit Method Stairs Assistance Independent Water Walking side Water Level Chest Level forward Water Level Chest Level Comments no equipment, then holding 1 small bb in front to facilitate abdominal mm Upper Extremity Exercises UE pull downs Details anterior Water Level Chest Level Equipment small barbells Reps/Duration 10x shld flex/ext Details wilfredo, alt Body Position Standing Water Level Chest Level Reps/Duration 10x ea Comments emphasis on core stab hor ab/ad Details wilfredo and unil Water Level Chest Level Reps/Duration 10x ea Comments emphasis on core stab [place] Activities Other Activities water walk forward Deep water stab: iron cross, UE lateral pull downs Deep water hang at wall: 2 min x 4 with deep breathing Equipment large noodle, small barbells PT-OP-T Assessment and Plan Start: 02/06/19 08:09 Freq: Status: Active Protocol: Document 04/11/19 13:34 [facility] (Rec: 04/11/19 15:58 [facility] [id number]) Physical Therapy Assessment Goals strength Short Term Goal (STG) Pt will be indep with therapist directed HEP STG Duration 03/08/19 Fdc Goal (LTG) Pt will tolerate testing and will achieve 4+/5 B LE strength, LPM, VCT & EFT in order to show improved core & functional LE strength. 8/6-tolerated testing and is improving in strength. Still weak with both directions AP LTG Duration 05/12/19 Two Impairment sitting Short Term Goal (STG) Pt will be able to sit for 5 min with no greater than 2 points increase pain on 10 point scale. 8/6 able to sit that long at sessionb ut notable inc pain. STG Duration 05/07/19 Weaving Professor Goal (LTG) Pt will be able to sit 1 hour in order to allow him to sit for his classes LTG Duration 05/12/19 One Impairment gait Fdc Goal (LTG) Pt will be able to amb with good mechanics without cuieng. 8/6-improved but still deficits with RLE push off LTG Duration 05/12/19 Assessment Summary Assessment Pt has made some progress with PT but progress is limited. He is now able to sit with less UE support when in PT session today, but cont to have signfiicant inc in pain with this extended sitting. Pt has been compliant with HEP and HEP has been to focus on hip ROM, core activiation & strengthening. He cont to have dec R hip ext and tightness through ant hip flexor & abdomenal structurs including viscera, rectus abdominus and psoas B, which have improved with treatment. Pt has pain specifically at L SI and has inc in pain with palpation. Gentle mobilizations and MET have been performed to try to improve this, but have not assisted in pain relief or motion, but instead aggrevated pt, so have been avoided. Pt is very motivated and cooperative with PT, but cont to have significant ADL limitiations (unable to flex) due to significant amounts of pain. Pt will be d/c from PT next session from this clinic d/t pt [facility] [place] [facility]. Recommendations have been given for PTs closer to his new home and pt encouraged to follow up with these therapists. Physical Therapy Plan Frequency and Duration Frequency of Treatment 2x/Week Duration of Treatment 1 month Plan of Care Start Date 04/11/19 Plan of Care End Date 05/12/19 Therapeutic Interventions Therapeutic Interventions Aquatic Therapy Balance Training Gait Training Home Exercise Program Joint Mobilizations Manual Therapy Neuromuscular Re-education Patient/Caregiver Education Self-Care/Home Management Soft Tissue Mobilization Taping Therapeutic Activities Therapeutic Exercises Modalities Cold Pack/Ice Massage Electric Stimulation Hot Packs Traction- Mechanical Ultrasound Next Visit Focus/Plan Next Note Type Discharge Summary Next Visit Plan Cont to work on knee ext& segmental flex & rotation
--- NOTE | 2019-04-11 19:20 | PT.OPPN ---
Current Diagnoses Low back pain (04/11/19) Other specified postprocedural states (04/11/19) Physical Therapy Progress Note PT-OP-A Visit Information Start: 02/06/19 08:09 Freq: Status: Active Protocol: Document 04/11/19 13:34 [facility] (Rec: 04/11/19 15:58 [facility] [id number]) Out-Patient Physical Therapy Visit Information Visit Information Visit Type Progress Note Visit Start Time 11:16 Visit Stop Time 12:11 Total Visit Minutes 55 Visit Number 08/18 Number of ESCROW MANAGER Visits 0 PT-OP-B Current Condition Start: 02/06/19 08:09 Freq: Status: Active Protocol: Document 02/06/19 10:04 [facility] (Rec: 02/06/19 12:14 [facility] [id number]) Current Condition History of Current Condition Onset Date oct 27 History of Current Condition Pt had disc replacement at L4- 5 on Oct 27, 2018. Pt reports sitting is significantly difficult now and leg pain is about 75% improved since surgery but back pain is still bad with movement. Pt saw MD about 1 week ago with limits of no bending, twisting or lifting. Pt is retiring in 60 days from [employer]. 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 History of injury: Pt reports he had an injury about 3 to 5 years ago when he was doing a 4 person lift for a 450 lb thing at work and then had to close the large lid and jumped off and noticed he tweaked his back> Reports when he got out the shower he felt like he couldn't walk and couldn't get up from floor. He rested in bed per MD recommendation for 3 days. [place] did [place] and came back and did PT but did not have relief with it. MD kept dx as mm spasm each time he went in and would give him mm relaxors . He had anohter injury where he was exercising recently and doing broad jumps and felt very uncomfortable in his back which inc his pain. 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 Pt does yoga and elliptical but is painful. He had an SUKHWINDER which gave him small bit of relief. Prior Treatments and Tests [place] but therapist was making him do very painful activities & was not maintaining full focus on his case so he asked to go outside base; mult bouts of PT prior to surgery & injections Treatment Goals Patient/Caregiver Goals hiking longer distances (>1/4 mile) & uphill, be able to sit in class, be able to play with his kids PT-OP-C Subjective Start: 02/06/19 08:09 Freq: Status: Active Protocol: Document 04/11/19 13:34 [facility] (Rec: 04/11/19 15:58 [facility] [id number]) OP-PT Subjective Patient Comments Patient Comments Pt reports he was sore after moving. Reports pain in his L scapular region and ant ribcage that when he saw his MD yesterday, she thought was muscular. He feels like he has improved some but is still frustrated that he cannot sit with out very high inc of pain . Patient Reported Progress Improving PT-OP-F Manual Assessment Start: 02/06/19 08:09 Freq: Status: Active Protocol: Document 02/06/19 10:04 [facility] (Rec: 02/06/19 18:51 [facility] [id number]) Manual Assessments Soft Tissue Assessment Soft Tissue Mobility Assessment Tightness B ES & QL, iliacus, piriformis Joint Mobility Assessment Joint Mobility Assessment Iliac crests equal in height in standing, but LLE longer in supine after bridge; Ant rotation of L innominate present in standing PT-OP-G Mobility & Gait Start: 02/06/19 08:09 Freq: Status: Active Protocol: Document 02/06/19 10:04 [facility] (Rec: 02/06/19 18:51 [facility] [id number]) OP Gait Assessment Comments Gait Comments Pt has dec ant elevation B with gait with significant pelvis ER with push off. Excessive lat leaning over R side w/loud heel strike of LLE indicating dec control PT-OP-J Posture/Palpation/Skin Start: 02/06/19 08:09 Freq: Status: Active Protocol: Document 04/11/19 13:34 [facility] (Rec: 04/12/19 19:19 [facility] [id number]) Posture Evaluation Kiki Postural Classification System Vertebral Compression Test 5 Elbow Flexion Test 5 Lumbar Protective Mechanism Left AP 1 Lumbar Protective Mechanism Right AP 1 Lumbar Protective Mechanism Left PA 5 Lumbar Protective Mechanism Right PA 5 PT-OP-K Range of Motion Start: 02/06/19 08:09 Freq: Status: Active Protocol: Document 02/06/19 10:04 [facility] (Rec: 02/06/19 18:51 [facility] [id number]) Lumbar Spine Range of Motion Lumbar Spine Active Degrees Comments not tested d/t restriction of twisting & bending PT-OP-L Special Tests Start: 02/06/19 08:09 Freq: Status: Active Protocol: Document 02/06/19 10:04 [facility] (Rec: 02/06/19 18:51 [facility] [id number]) Special Tests Lumbar Spine Special Tests Slump Test Results neg B Straight Leg Raise Test Results HS tightness R at 28 deg; L positive at 46 deg PT-OP-M Strength Start: 02/06/19 08:09 Freq: Status: Active Protocol: Document 04/11/19 13:34 [facility] (Rec: 04/12/19 19:19 [facility] [id number]) Hip Strength Hip Manual Muscle Testing Right Flexion (L2) 3+ Fair+ Abduction 2+ Poor+ External Rotation 4+ Good+ Internal Rotation 5 Normal Left Flexion (L2) 3+ Fair+ Abduction 3+ Fair+ External Rotation 4 Good Internal Rotation 5 Normal PT-OP-T Assessment and Plan Start: 02/06/19 08:09 Freq: Status: Active Protocol: Document 04/11/19 13:34 [facility] (Rec: 04/11/19 15:58 [facility] [id number]) Physical Therapy Assessment Goals strength Short Term Goal (STG) Pt will be indep with therapist directed HEP STG Duration 03/08/19 Intermediate Goal (LTG) Pt will tolerate testing and will achieve 4+/5 B LE strength, LPM, VCT & EFT in order to show improved core & functional LE strength. 8/6-tolerated testing and is improving in strength. Still weak with both directions AP LTG Duration 05/12/19 Two Impairment sitting Short Term Goal (STG) Pt will be able to sit for 5 min with no greater than 2 points increase pain on 10 point scale. 8/6 able to sit that long at sessionb ut notable inc pain. STG Duration 05/07/19 Intermediate Goal (LTG) Pt will be able to sit 1 hour in order to allow him to sit for his classes LTG Duration 05/12/19 One Impairment gait Intermediate Goal (LTG) Pt will be able to amb with good mechanics without cuieng. 04/11-improved but still deficits with RLE push off LTG Duration 05/12/19 Assessment Summary Assessment Pt has made some progress with PT but progress is limited. He is now able to sit with less UE support when in PT session today, but cont to have signfiicant inc in pain with this extended sitting. Pt has been compliant with HEP and HEP has been to focus on hip ROM, core activiation & strengthening. He cont to have dec R hip ext and tightness through ant hip flexor & abdomenal structurs including viscera, rectus abdominus and psoas B, which have improved with treatment. Pt has pain specifically at L SI and has inc in pain with palpation. Gentle mobilizations and MET have been performed to try to improve this, but have not assisted in pain relief or motion, but instead aggrevated pt, so have been avoided. Pt is very motivated and cooperative with PT, but cont to have significant ADL limitiations (unable to flex) due to significant amounts of pain. Pt will be d/c from PT next session from this clinic d/t pt moving to a new city about 1 hour away. Recommendations have been given for PTs closer to his new home and pt encouraged to follow up with these therapists. Physical Therapy Plan Frequency and Duration Frequency of Treatment 2x/Week Duration of Treatment 1 month Plan of Care Start Date 04/11/19 Plan of Care End Date 05/12/19 Therapeutic Interventions Therapeutic Interventions Aquatic Therapy Balance Training Gait Training Home Exercise Program Joint Mobilizations Manual Therapy Neuromuscular Re-education Patient/Caregiver Education Self-Care/Home Management Soft Tissue Mobilization Taping Therapeutic Activities Therapeutic Exercises Modalities Cold Pack/Ice Massage Electric Stimulation Hot Packs Traction- Mechanical Ultrasound Next Visit Focus/Plan Next Note Type Discharge Summary Next Visit Plan Cont to work on knee ext& segmental flex & rotation
--- NOTE | 2019-04-13 18:27 | PT.OTN ---
Current Diagnoses Low back pain (04/13/19) Other specified postprocedural states (04/13/19) Physical Therapy Treatment Note PT-OP-A Visit Information Start: 02/06/19 08:09 Freq: Status: Active Protocol: Document 04/13/19 18:21 [facility] (Rec: 04/13/19 18:27 [facility] [id number]) Out-Patient Physical Therapy Visit Information Visit Information Visit Type Discharge Summary Visit Start Time 11:17 Visit Stop Time 12:02 Total Visit Minutes 45 Visit Number 13/ Number of LICENSING OFFICER Visits 0 PT-OP-B Current Condition Start: 02/06/19 08:09 Freq: Status: Active Protocol: Document 02/06/19 10:04 [facility] (Rec: 02/06/19 12:14 [facility] [id number]) Current Condition History of Current Condition Onset Date oct 27 History of Current Condition Pt had disc replacement at L4- 5 on Oct 27, 2018. Pt reports sitting is significantly difficult now and leg pain is about 75% improved since surgery but back pain is still bad with movement. Pt saw MD about 1 week ago with limits of no bending, twisting or lifting. Pt is retiring in 60 days from [employer]. 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 History of injury: Pt reports he had an injury about 3 to 5 years ago when he was doing a 4 person lift for a 450 lb thing at work and then had to close the large lid and jumped off and noticed he tweaked his back> Reports when he got out the shower he felt like he couldn't walk and couldn't get up from floor. He rested in bed per MD recommendation for 3 days. [place] and came [place] and did PT but did not have relief with it. MD kept dx as mm spasm each time he went in and would give him mm relaxors . He had anohter injury where he was exercising recently and doing broad jumps and felt very uncomfortable in his back which inc his pain. 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 Pt does yoga and elliptical but is painful. He had an [employer] which gave him small bit of relief. Prior Treatments and Tests [place] therapist was making him do very painful activities & was not maintaining full focus on his case so he asked to go outside base; mult bouts of PT prior to surgery & injections Treatment Goals Patient/Caregiver Goals hiking longer distances (>1/4 mile) & uphill, be able to sit in class, be able to play with his kids PT-OP-C Subjective Start: 02/06/19 08:09 Freq: Status: Active Protocol: Document 04/13/19 18:21 [facility] (Rec: 04/13/19 18:27 [facility] [id number]) OP-PT Subjective Patient Comments Patient Comments Pt reports doing a lot of stretching PT-OP-F Manual Assessment Start: 02/06/19 08:09 Freq: Status: Active Protocol: Document 02/06/19 10:04 [facility] (Rec: 02/06/19 18:51 [facility] [id number]) Manual Assessments Soft Tissue Assessment Soft Tissue Mobility Assessment Tightness B ES & QL, iliacus, piriformis Joint Mobility Assessment Joint Mobility Assessment Iliac crests equal in height in standing, but LLE longer in supine after bridge; Ant rotation of L innominate present in standing PT-OP-G Mobility & Gait Start: 02/06/19 08:09 Freq: Status: Active Protocol: Document 02/06/19 10:04 [facility] (Rec: 02/06/19 18:51 [facility] [id number]) OP Gait Assessment Comments Gait Comments Pt has dec ant elevation B with gait with significant pelvis ER with push off. Excessive lat leaning over R side w/loud heel strike of LLE indicating dec control PT-OP-J Posture/Palpation/Skin Start: 02/06/19 08:09 Freq: Status: Active Protocol: Document 04/11/19 13:34 [facility] (Rec: 04/12/19 19:19 [facility] [id number]) Posture Evaluation Kiki Postural Classification System Vertebral Compression Test 5 Elbow Flexion Test 5 Lumbar Protective Mechanism Left AP 1 Lumbar Protective Mechanism Right AP 1 Lumbar Protective Mechanism Left PA 5 Lumbar Protective Mechanism Right PA 5 PT-OP-K Range of Motion Start: 02/06/19 08:09 Freq: Status: Active Protocol: Document 02/06/19 10:04 [facility] (Rec: 02/06/19 18:51 [facility] [id number]) Lumbar Spine Range of Motion Lumbar Spine Active Degrees Comments not tested d/t restriction of twisting & bending PT-OP-L Special Tests Start: 02/06/19 08:09 Freq: Status: Active Protocol: Document 02/06/19 10:04 [facility] (Rec: 02/06/19 18:51 [facility] [id number]) Special Tests Lumbar Spine Special Tests Slump Test Results neg B Straight Leg Raise Test Results HS tightness R at 28 deg; L positive at 46 deg PT-OP-M Strength Start: 02/06/19 08:09 Freq: Status: Active Protocol: Document 04/11/19 13:34 [facility] (Rec: 04/12/19 19:19 [facility] [id number]) Hip Strength Hip Manual Muscle Testing Right Flexion (L2) 3+ Fair+ Abduction 2+ Poor+ External Rotation 4+ Good+ Internal Rotation 5 Normal Left Flexion (L2) 3+ Fair+ Abduction 3+ Fair+ External Rotation 4 Good Internal Rotation 5 Normal PT-OP-Q Treatments Start: 02/06/19 08:09 Freq: Status: Active Protocol: Document 04/13/19 18:21 [facility] (Rec: 04/13/19 18:27 [facility] [id number]) Therapeutic Exercises Supine Exercises leg ext Supine Exercise Name knee ext with pillow under R Knee Side right Reps/Minutes 10 Comments quad set into pillow SKTC Supine Exercise Name SKTC progressed to DKTC & piriformis stretching indivually Side bilateral Reps/Minutes 30 sec ea Sitting Exercises flex Sitting Exercise Name segmental Reps/Minutes 2x Standing Exercises flex Standing Exercise Name segmental w/focus on netural fwd Manual Therapy Treatment Soft Tissue Mobilization scar tissue Body Location abdomen Mobilization Type Myofascial Release Rolling Intensity/Depth Moderate Body Position Supine psoas Body Location L Mobilization Type Sustained Pressure Intensity/Depth Deep Body Position Supine Comments w/deep breathing iliacus Body Location R iliacus & RF Mobilization Type Strumming Sustained Pressure Comments supine PT-OP-R Modalities Start: 02/06/19 08:09 Freq: Status: Active Protocol: Document 04/11/19 13:34 [facility] (Rec: 04/11/19 15:58 [facility] [id number]) Hot Pack/Cold Pack Treatment Cold Pack Location lumbar Patient Position Supine Treatment Duration (minutes) 10 PT-OP-S Aquatic Treatment Start: 02/24/19 14:30 Freq: Status: Active Protocol: Document 02/24/19 14:23 [facility] (Rec: 02/24/19 14:36 [facility] [id number]) Aquatics Treatment Pool Entry/Exit Pool Entry/Exit Method Stairs Assistance Independent Water Walking side Water Level Chest Level forward Water Level Chest Level Comments no equipment, then holding 1 small bb in front to facilitate abdominal mm Upper Extremity Exercises UE pull downs Details anterior Water Level Chest Level Equipment small barbells Reps/Duration 10x shld flex/ext Details wilfredo, alt Body Position Standing Water Level Chest Level Reps/Duration 10x ea Comments emphasis on core stab hor ab/ad Details wilfredo and unil Water Level Chest Level Reps/Duration 10x ea Comments emphasis on core stab [place] Activities Other Activities water walk forward Deep water stab: iron cross, UE lateral pull downs Deep water hang at wall: 2 min x 4 with deep breathing Equipment large noodle, small barbells PT-OP-T Assessment and Plan Start: 02/06/19 08:09 Freq: Status: Active Protocol: Document 04/13/19 18:21 [facility] (Rec: 04/13/19 18:27 [facility] [id number]) Physical Therapy Assessment Goals strength Short Term Goal (STG) Pt will be indep with therapist directed HEP STG Duration 03/08/19 Custodial Goal (LTG) Pt will tolerate testing and will achieve 4+/5 B LE strength, LPM, VCT & EFT in order to show improved core & functional LE strength. 04/11-tolerated testing and is improving in strength. Still weak with both directions AP LTG Duration 05/12/19 Two Impairment sitting Short Term Goal (STG) Pt will be able to sit for 5 min with no greater than 2 points increase pain on 10 point scale. 8/ able to sit that long at sessionb ut notable inc pain. STG Duration 05/07/19 Custodial Goal (LTG) Pt will be able to sit 1 hour in order to allow him to sit for his classes LTG Duration 05/12/19 One Impairment gait Instrument Repair Specialist Goal (LTG) Pt will be able to amb with good mechanics without cuieng. 8-improved but still deficits with RLE push off LTG Duration 05/12/19 Assessment Summary Assessment Pt demonstrated inc hip flex on L side today to about 110 passively without pain and about 100 on R side. He was able to achieve piriformis and glute stretching B with cueing for set up. Improved hip ext to lacking about 5 deg after session in supine which is th emost pt has been able to achieve. He cont to c/o pain in L SI which limits his motions and strength. Dec ant folding with fwd flex activities and pt instructed to work on his scar. He cont to be limited in sitting and his gait at this time d/t pain . He would benefit from cont PT and pt was encouraged to seak further PT in [place] where he moved. Physical Therapy Plan Discharge Physical Therapy Discharge Comments Pt moved away from area and encouraged to start PT at new clinic closer to home.
== END 2019-04-19 16:12 | disposition home or self-care (01) ==
LOC: PHYS 11:15
PROVIDERS: PCP Student in an Organized Health Care Education/Training Program; Visit Provider Student in an Organized Health Care Education/Training Program
DX: M54.5 Low back pain (principal); Z98.890 Other specified postprocedural states
CPT/HCPCS: 97010; 97110; 97112; 97113; 97140; 97162; 97535